=== PATIENT | male | born 1970 | race Caucasian/White ===

== ENCOUNTER 2020-03-27 17:40 | Emergency (ER) | payer OTHER, SELFPAY ==
[2020-03-27 17:44] VITALS: BP 135/76; PULSE 114; RESP 20; TEMP 36.8; O2SAT 100
--- NOTE | 2020-03-27 18:24 | ED.GENADULT ---
HPI - General Adult General Chief complaint: Skin/Abscess/Foreign Body Stated complaint: WHOLE LOT OF STUFF GOING ON WITH LEG Time Seen by Provider: 03/27/20 17:58 Source: patient Mode of arrival: ambulatory Limitations: no limitations History of Present Illness HPI narrative: Patient is a 49-year-old male who presents to emergency department for evaluation of wounds to the bilateral shins noting that 1 of the region just above the left ankle has been present long-term patient notes that he has since developed sores or other similar lesions to the left and right lower extremity. Patient notes he does not have a primary care doctor has been using topical antibiotics with minimal improvement patient notes mild aching pain patient denies any fever chills nausea vomiting. On arrival patient resting comfortably in the room in no distress Related Data Allergies Allergy/AdvReac Type Severity Reaction Status Date / Time acetaminophen Allergy Mild SHAKING Verified 03/27/20 18:14 dextromethorphan Allergy Mild SHAKING Verified 03/27/20 18:14 doxylamine Allergy Mild SHAKING Verified 03/27/20 18:14 pseudoephedrine Allergy Mild SHAKING Verified 03/27/20 18:14 Review of Systems Review of Systems: All systems reviewed & are unremarkable except as noted in HPI and below PMFSH Social History Social History (Updated 03/27/20 @ 18:49 by Rajiv Basilio PA-C) Smoking status: Current every day smoker Exam Narrative: Exam Narrative: GENERAL: Well-appearing, well-nourished, and in no acute distress. HEAD: Normocephalic, atraumatic. EYES: PERRLA and EOMI. ENT: Nares clear, no rhinorrhea or epistaxis. Mucous membranes moist. CHEST: Clear to auscultation. No respiratory distress. No wheezes rales or rhonchi HEART: Regular rate and rhythm. No murmur heard. Normal peripheral pulses. EXTREMITIES: Normal range of motion. No edema. SKIN: Warm, dry, patient with 3 erythematous plaques to the left martinez 1 to the inner thigh. One plaque that is erythematous to the right martinez NEURO: No focal deficits. Alert and oriented x3. Cranial nerves II through XII grossly intact. Neurovascularly intact. Capillary refill less than 2 seconds PSYCH: Normal mood and affect. Course Course Emergency Course: Patient in the room in no distress aware of case findings treatment plan and diagnosis agreeing to follow-up with provided primary care referral for discussion of possible dermatology referral for his skin lesions Vital Signs Vital signs: Vital Signs Temperature 98.3 F 03/27/20 17:44 Pulse Rate 114 H 03/27/20 17:44 Respiratory Rate 03/27/20 17:44 Blood Pressure 135/76 03/27/20 17:44 Pulse Oximetry 100 03/27/20 17:44 Temperature 98.3 F 03/27/20 17:44 Pulse Rate 114 H 03/27/20 17:44 Respiratory Rate 03/27/20 17:44 Blood Pressure 135/76 03/27/20 17:44 Pulse Oximetry 100 03/27/20 17:44 Medical Decision Making MDM Narrative Medical decision making narrative: Patient in the room with what appears to be likely plaque psoriasis will be referred to primary care for dermatology referral patient provided with reasons to return. Patient afebrile nontoxic-appearing and agreeing to follow-up as instructed Vital Signs Vital Signs: Vital Signs Temperature 98.3 F 03/27/20 17:44 Pulse Rate 114 H 03/27/20 17:44 Respiratory Rate 03/27/20 17:44 Blood Pressure 135/76 03/27/20 17:44 Pulse Oximetry 100 03/27/20 17:44 Temperature 98.3 F 03/27/20 17:44 Pulse Rate 114 H 03/27/20 17:44 Respiratory Rate 03/27/20 17:44 Blood Pressure 135/76 03/27/20 17:44 Pulse Oximetry 100 03/27/20 17:44 Discharge Plan Discharge Instructions: Acute Rash (ED), Psoriasis (ED) Additional Instructions: Follow up with your primary care provider within 1-2 days to set up for reevaluation. Go to ER for shortness of breath, difficulty breathing, chest pain, fever/chills, weakness, nauseau/vomitting, etc. or any oth
== END 2020-03-27 19:03 | disposition home or self-care (01) ==
PROVIDERS: Emergency Provider Emergency Medicine
DX: R21 Rash and other nonspecific skin eruption (principal); F17.200 Nicotine dependence, unspecified, uncomplicated
CPT/HCPCS: 99283

== ENCOUNTER 2022-12-27 08:03 | Emergency (ER) | payer OTHER, SELFPAY ==
[2022-12-27] VITALS (11 sets, daily range): BP systolic 129–148; BP diastolic 89–110; PULSE 86–107; RESP 19–28; TEMP 37.5; O2SAT 95–98
--- NOTE | ~2022-12-27 | XR_ITS ---
EXAMINATION: XR chest 2V DATE: 12/27/2022 08:28 INDICATION: Right lateral chest pain when coughing TECHNIQUE: PA and lateral views of the chest are obtained. COMPARISON: 02/23/2011 FINDINGS: There are minimal peripheral airspace opacities in the right midlung zone. Scarring is note d in the lung apices. No pleural effusion or pneumothorax. The cardiomediastinal silhouette is normal . There is mild thoracic spondylosis. IMPRESSION: 1. Minimal airspace opacities of the right midlung zone, likely pneumonia. Reviewed, dictated and finalized at location A. R APPLICATIONS DEVELOPMENT ENGINEER
--- NOTE | ~2022-12-27 | CT_ITS ---
EXAMINATION: CTA chest PE protocol DATE: 12/27/2022 09:47 INDICATION: Chest pain TECHNIQUE: Computed tomography angiography (CTA) of the chest was performed with 100 mL Omnipaque-350 intravenous contrast timed to evaluate the pulmonary arteries. Coronal maximum intensity projection 3D-reconstructions were created by the technologist. The dose-length product (DLP) was 193.38 mGy-cm. Automated exposure control and iterative reconstruction technique were employed. COMPARISON: None. FINDINGS: The pulmonary arteries are well-opacified. There are acute pulmonary emboli in proximal bra nches of the right middle and lower lobes. There are peripheral airspace opacities in the right middl e lobe. There is mild dependent atelectasis. No pleural effusion or pneumothorax. No pathologically e nlarged thoracic lymph nodes are identified. The heart size is normal. There is a possible mass in th e fundus of the stomach. IMPRESSION: 1. Acute pulmonary emboli in proximal branches of the right middle and lower lobes. 2. Peripheral airspace opacities of the right middle lobe are consistent with pulmonary infarct and/o r pneumonia. These findings were discussed with Dr. Lucia Luevano MD in the Emergency Department at 10 10 hours on 12/27/2022. 3. Possible mass in the fundus of the stomach. Follow-up with endoscopy is recommended. Reviewed, dictated and finalized at location A. E DETECTIVE IMPRESSION: 1. Acute pulmonary emboli in proximal branches of the right middle and lower lo bes. 2. Peripheral airspace opacities of the right middle lobe are consistent with p ulmonary infarct and/or pneumonia. These findings were discussed with Dr. Lucia Luevano MD in the Emergency Department at 1010 hours on 12/27/2022. 3. Possible mass in the fundus of the stomach. Follow-up with endoscopy is marianne mmended.
--- NOTE | 2022-12-27 08:09 | ECG_ITS ---
Measurements Intervals [place] Rate: 99 P: 71 [place]: 140 QRS: -19 QRSD: 92 T: 42 QT: 344 QTc: 442 Interpretive Statements SINUS RHYTHM LEFT ATRIAL ENLARGEMENT [-0.15mV P WAVE IN V1/V2] SEPTAL MYOCARDIAL INFARCTION , OF INDETERMINATE AGE [40+ ms Q WAVE IN V1/V2] NONSPECIFIC ST ABNORMALITY ABNORMAL ECG NO PREVIOUS ECG AVAILABLE FOR COMPARISON Electronically Signed On 12-27-2022 12:49:12 STRINGED INSTRUMENT ASSEMBLER by Santy Gonzales M.D.
[2022-12-27 08:25] LABS: Basophils Percent Auto 0.3 % (0.2-1.2); Eosinophils Percent Auto 0.1 % (0-4.4); Hematocrit 51.8 % (42.0-52.0); Hemoglobin 18.3 g/dL (14.0-18.0); Immature Granulocyte Absolute 0.07 K/mm3 (0.00-0.031); Immature Granulocyte Percent A 0.7 % (0-0.5); Lymphocytes Absolute Auto 1.46 K/mm3 (0.9-3.2); Lymphocytes Percent Auto 14.1 % (18.3-44.2); Mean Corpuscular HGB Conc 35.3 g/dl (32-36); Mean Corpuscular Hemoglobin 41.8 pg (26-34); Mean Corpuscular Volume 118.3 fl (80-100); Mean Platelet Volume 9.3 fl (7.4-10.4); Monocytes Absolute Auto 1.4 K/mm3 (0.1-0.6); Monocytes Percent Auto 13.8 % (2.6-8.5); Neutrophils Absolute Auto 7.3 K/mm3 (1.3-6.7); Platelet Count Result 144 k/mm3 (150-375); Red Blood Count 4.38 M/mm3 (4.6-6.20); Red Cell Distribution Width 14.6 % (11.5-14.5); White Blood Count 10.3 K/mm3 (4.5-10.0)
[2022-12-27 08:34] LABS: Alanine Aminotransferase 33 U/L (6-50); Albumin Level 4.1 g/dL (3.5-5.1); Alkaline Phosphatase 127 U/L (38-126); Anion Gap 6 mmol/L (8-16); Aspartate Amino Transferase 33 U/L (17-59); Bilirubin,Total 2.3 mg/dL (0.2-1.3); Blood Urea Nitrogen 6 mg/dL (9-20); Calcium 8.6 mg/dL (8.4-10.2); Carbon Dioxide 31 mmol/L (22-30); Chloride 96 mmol/L (98-107); Estimated CRCL calculation 97 ml/min; Estimated Glomerular Filt Rate > 60; Glucose 97 mg/dL (65-110); Lipase 31 U/L (23-300); Potassium 3.6 mmol/L (3.4-5.0); Sodium 133 mmol/L (137-145)
--- NOTE | 2022-12-27 08:34 | ED.CHESTPAIN ---
HPI - Chest Pain General Chief Complaint: Chest Pain Stated Complaint: cp/coughing up blood Time Seen by Provider: 12/27/22 08:09 History of Present Illness HPI narrative: Patient states about 3 days ago he started having severe sharp right-sided chest pain, and started having cough, the cough has been persistent to the point where this morning he had some bloody tinged sputum. Has never had symptoms like this before, only medical history is hypertension but he is not on any medications. Does smoke daily. No personal or family history of blood clots. Related Data Allergies Allergy/AdvReac Type Severity Reaction Status Date / Time acetaminophen Allergy Mild SHAKING Verified 03/27/20 18:14 dextromethorphan Allergy Mild SHAKING Verified 03/27/20 18:14 doxylamine Allergy Mild SHAKING Verified 03/27/20 18:14 pseudoephedrine Allergy Mild SHAKING Verified 03/27/20 18:14 Review of Systems Review of Systems: CONST: No fever. HEENT: No sore throat C/V: Right side chest pain RESP: cough and hemoptysis GI: No nausea or vomiting : No dysuria. M/S: No joint pain. SKIN: No rash. NEURO: [No headache or focal numbness or weakness] PSYCH: [No depression] [facility] Past Medical History Medical History (Updated 12/27/22 @ 10:25 by Lucia Luevano MD) Hypertension Social History Social History (Updated 03/27/20 @ 18:49 by Rajiv Basilio, PA-C) Smoking status: Current every day smoker Exam Narrative: EXAMINATION OF ORGAN SYSTEMS/BODY AREAS: Constitutional: Vital signs per nursing GENERAL:[No acute distress, non-toxic appearing; appears slightly anxious.] HEAD: Normal with no signs of head trauma. EYES: EOMI, conjunctiva normal ENT: Hearing grossly intact LUNGS: Slight tachypnea with clear lungs HEART: [Regular rate and rhythm] ABD: [Soft], [nontender to palpation] EXT: Normal range of motion SKIN: [No rashes or lesions.] NEURO: [Alert and oriented x 3. No gross focal sensory or strength deficits.] PSYCH: Anxious affect Course Vital Signs Vital signs: Vital Signs Temperature 99.5 F 12/27/22 08:11 Pulse Rate 100 12/27/22 08:11 Respiratory Rate 23 H 12/27/22 08:11 Blood Pressure 148/110 H 12/27/22 08:11 Pulse Oximetry 97 12/27/22 08:11 Oxygen Delivery Room Air 12/27/22 08:11 Temperature 99.5 F 12/27/22 08:11 Pulse Rate 88 12/27/22 11:10 Respiratory Rate 22 H 12/27/22 11:10 Blood Pressure 130/89 12/27/22 11:10 Pulse Oximetry 96 12/27/22 11:10 Oxygen Delivery Room Air 12/27/22 09:06 MDM - Chest Pain MDM Narrative Medical decision making narrative: 52-year-old male presenting with right-sided chest pain and blood-tinged sputum with coughing, vital signs normal here other than some mild tachypnea, he is otherwise well-appearing on exam speaking full complete sentences, my differential includes bronchitis, pneumonia, pulmonary embolism, doubt ACS without chest pain or risk factors. EKG - 12-Lead: Performed at 0813. Interpreted by me. [Sinus rhythm]. Rate 99. [Normal] axis. CO-interval 140. QRS duration [normal]. QTc [normal]. [No ST segment elevation or depression]. [T-wave normal]. Impression: No EKG evidence of acute ischemia or dysrhythmia. CXR showing opacity R chest. Labs are notable for elevated D-dimer and minimal leukocytosis, CT pulmonary embolism does show right-sided PE without RV changes. PESI score 61 indicating very low-risk and safe for discharge; I did offer the patient admission, however he would prefer to go home. He is given a dose of eliquis and I will also start antibiotics for possible pneumonia. CT also does show possible mass in stomach, I discussed this with patient as well as need to f/u with GI for further evaluation and he is given f/u to PCP and GI. STRICT return precautions discussed, especially if patient unable to picker feeder blood thinners; risk of or deterioration of condition if he does not take thinners as prescribed discussed. Patient ag
[2022-12-27 08:37] LABS: INR 1.1; Partial Thromboplastin Time 27.7 SECONDS (22.3-36.8); Prothrombin Time 13.9 Seconds (11.1-14.7)
[2022-12-27 08:45] LABS: Anisocytosis 1+ (NORMAL); Schistocytes None Seen (NORMAL); Troponin I 0.013 ng/mL (0.000-0.034)
[2022-12-27] MEDS: AZITHROMYCIN 250 MG TABLET 500 MG PO (10:50)
[2022-12-27] MEDS: APIXABAN 5 MG TABLET 10 MG PO (10:50)
== END 2022-12-27 11:00 | disposition home or self-care (01) ==
PROVIDERS: Emergency Provider Emergency Medicine
DX: I26.99 Other pulmonary embolism without acute cor pulmonale (principal); J18.9 Pneumonia, unspecified organism; I10 Essential (primary) hypertension; F17.200 Nicotine dependence, unspecified, uncomplicated
CPT/HCPCS: 36415; 71046; 71275; 80053; 83690; 84484; 85025; 85380; 85610; 85730; 93005; 99284; A9270; Q9967

== ENCOUNTER 2023-03-25 02:17 | Day surgery (SDC) | payer OTHER, SELFPAY ==
[2023-01-28 14:50] VITALS: BMI 19.2
--- NOTE | 2023-02-04 12:30 | SUR.PREOP ---
[address] Salgado anesthesiologist and reviewed patient's chart. Discussed with Dr Salgado regarding the patient has not found a primary despite his ER discharge instructions informing him to find a primary to follow up on his PE and that the PAT nurse spoke with him last week to check to see if he found a primary yet. The same PAT nurse called again this morning to see if he was able to find a primary. Patient to call her back at 1 today. Mother said he does not have an appointment yet. Patient also ran out of his Eliquis on 01/28. Discussion had with Dr Salgado on how to proceed. Dr. Salgado ask that we call patient and encourage him to get a primary to manage his PE and other health problem before they are willing to provide anesthesia for his procedures. I also spoke with Dr. Soto regarding the patient's situation. He also said he needs to see a primary provider. He is willing to order his Eliquis but needs to see a primary prior to having the procedure done. Message related to Padmini MARTIN RN as the patient will be calling her today to discuss.
--- NOTE | 2023-02-04 12:45 | PC.NURSE ---
Spoke with patient on 01/29/2023 regarding his Eliquis and current primary. Pt states he does not currently have a primary. I gave him the number to call at the hospital to see about getting into a primary. Talked with him about not running out of the Eliquis prior to follow up regarding his PE's and the seriousness of this condition. He assured me he would call. I told him I would call and follow up with him this week. I called today and his mom answered the phone, she said he has not gotten a primary as of today but she will have him call me after she picks him up from work.
--- NOTE | 2023-02-04 13:01 | PC.NURSE ---
Spoke with patient, numbers given to patient to call to obtain a primary doctor, in addition I discussed the seriousness of this issue and need to stay on Eliquis until he can be evaluated by primary and followed up with. I did discuss with this patient that anesthesia will not proceed with his procedure until he is seen by a primary and his health is stabilized, at that time we will reschedule him for this procedure. Dr. Soto placed an order for a refill for his Eliquis and pt instructed to pick this up and start back on it, he states he ran out a couple days ago, and that he will get back on it. He will call me once he is set up with a primary.
--- NOTE | 2023-02-05 16:37 | PC.NURSE ---
PT HAD LEFT MESSAGE THIS AM REGARDING HIS ELIQUIS, WHEN HE WENT TO PICK IT UP PHARMACY TOLD HIM THEY NEEDED A PRE-AUTH. I CALLED DR. WRIGHT OFFICE AND SPOKE WITH ELFEGO RODRIGUEZ MA, SHE WILL WORK ON GETTING THE PRE-AUTH THROUGH AND TALK TO DR. WRIGHT, I HAVE EXPLAINED THIS TO PATIENT AND WILL LET HIM KNOW AN UPDATE SOON I KNOW. ELFEGO Recinos DID CALL THIS AFTERNOON AND THE PRE-AUTH WAS APPROVED. I CALLED AN[facility] AND TOLD HIM TO CALL HIS PHARMACY AND HE SHOULD BE ABLE TO PICK IT UP THIS SALONI. HE IS TO CALL ME IF ANY PROBLEMS.
[2023-03-16 13:24] VITALS: BMI 19.2
--- NOTE | 2023-03-25 07:49 | WPDANESEPPF ---
Anes - Initial Pre Proc Eval Procedure: Operation Date: 03/25/23 11:00 Proposed Procedures p Esophagogastroduodenoscopy & Colonoscopy - Loki Barbour MD Date/Time: 03/25/23 07:49 Surgeon: Loki Barbour MD Pre Op Diagnosis: Abnormal Radiology Findings, Chest Pain Patient Data Age: 52 Gender: M Height: 1.88 m Weight: 68 kg Allergies Allergy/AdvReac Type Severity Reaction Status Date / Time acetaminophen Allergy Mild SHAKING Verified 03/25/23 09:51 dextromethorphan Allergy Mild SHAKING Verified 03/25/23 09:51 doxylamine Allergy Mild SHAKING Verified 03/25/23 09:51 pseudoephedrine Allergy Mild SHAKING Verified 03/25/23 09:51 Home Medications Medication Instructions Recorded Confirmed Type apixaban 5 mg tablet (Eliquis) 5 mg PO BID #180 tabs 02/24/23 03/25/23 Rx Patient hx anesthesia problems: none Family hx anesthesia problems: none Results Review: All pre-operative results and documents have been reviewed as part of the pre-operative evaluation. [facility] Past Medical History Medical History (Updated 03/25/23 @ 07:50 by Scotty Diaz MD) Abnormal CT scan, stomach Colon cancer screening ETOH abuse Hypertension Pulmonary embolism and infarction Stuttering Tobacco abuse Surgical History Surgical History History of left inguinal hernia repair (~2001) History of right inguinal hernia repair (~1996) Social History Social History Smoking packs per day: 1.5 Smoking cigarettes per day: 30.0 Years smoked: 35 Smoking pack-years: 52.50 Smoking status: Current every day smoker Tobacco type: cigarettes Alcohol intake: current Drinks per week: 25 Alcohol use details: BEER(15/WEEK) AND FIREBALL(8 SHOTS/WEEK) Substance use: former Substance use type: marijuana Lack of Transportation: No Lack of Food: Never True Current Housing: I Have Housing Concerned About Future Housing: No Difficulty Paying Gas/Electric Bills: No Difficulty Paying for Meds: No Currently Unemployed: No Education: Decline to Answer Difficulty w/ Childcare or Family Care: No Living arrangements: with family Occupation/Education: occupation Additional occupation/education comments: [employer] Gender identity (if verbalized by the patient): Male Spiritual care concerns: No Anes - Eval Final PreProcedure Day of Procedure 03/25/23 07:49 Patient weight: normal Heart: regular rate and rhythm Lungs: clear to auscultation and normal air movement Airway: Mallampati scale class II Neurological: alert and oriented Last oral intake: >/= 8 hours ASA classification: III Emergent: no Anesthetic plan: proceed Anesthesia type and monitoring: general GIVS Results Review: All pre-operative results and documents have been reviewed as part of the pre-operative evaluation. Informed Consent: The patient's anesthetic plan and its attendant risks and benefits were discussed with the patient/family/POA. Questions were solicited and answers provided to the satisfaction of the patient/family/POA.
[2023-03-25 09:48] VITALS: BP 169/94; PULSE 86; RESP 18; TEMP 36.6; O2SAT 100; BMI 18.6
[2023-03-25] MEDS: LACTATED RINGERS 1,000 ML 150 ML IV CONT (10:04)
--- NOTE | 2023-03-25 10:39 | PM.HPGS ---
History of Present Illness History of Present Illness Consent: Risks, benefits, and alternatives have been discussed and questions answered. Patient agrees to proceed with procedure. Chief complaint: Abnormal Radiology Findings, Chest Pain Narrative: Danilo Esposito is a 52 year old male here for egd and colonoscopy, had severe pain in rt chest and shortness of breath earlier this year, found to have new diagnosis of PE?and possible mass in the fundus of the stomach. Doing well now and using eliquis, denies abdominal pain but never had scopes. Review of Systems Constitutional: Constitutional: Denies headache(s) and Denies weakness Eyes: Eyes: Denies blurry vision ENT: Reports Normal hearing present, Denies headache(s) and Denies neck pain Cardiovascular: Cardiovascular: Denies chest pain and Denies dyspnea Respiratory: Respiratory: Denies dyspnea Gastrointestinal: Gastrointestinal: Reports no additional gastrointestinal complaints Genitourinary: Genitourinary: Denies dysuria Musculoskeletal: Musculoskeletal: Denies neck pain Integumentary/Breasts: Skin/Breast: Denies dry skin Neurologic: Reports Normal hearing present, Denies headache(s) and Denies weakness Psychiatric: Psychiatric: Denies anxiety Endocrine: Endocrine: Denies change in body appearance Hematologic/Lymphatic: Hematologic/Lymphatic: Denies easy bleeding Allergic/Immunologic: Allergic/Immunologic: Denies urticaria PMFSH Past Medical History Medical History (Updated 03/25/23 @ 10:40 by Loki Barbour MD) Abnormal CT scan, stomach Colon cancer screening ETOH abuse Hypertension Pulmonary embolism and infarction Stuttering Tobacco abuse Surgical History Surgical History History of left inguinal hernia repair (~2001) History of right inguinal hernia repair (~1996) Social History Social History Smoking packs per day: 1.5 Smoking cigarettes per day: 30.0 Years smoked: 35 Smoking pack-years: 52.50 Smoking status: Current every day smoker Tobacco type: cigarettes Alcohol intake: current Drinks per week: 25 Alcohol use details: BEER(15/WEEK) AND FIREBALL(8 SHOTS/WEEK) Substance use: former Substance use type: marijuana Lack of Transportation: No Lack of Food: Never True Current Housing: I Have Housing Concerned About Future Housing: No Difficulty Paying Gas/Electric Bills: No Difficulty Paying for Meds: No Currently Unemployed: No Education: Decline to Answer Difficulty w/ Childcare or Family Care: No Living arrangements: with family Occupation/Education: occupation Additional occupation/education comments: [employer] Gender identity (if verbalized by the patient): Male Spiritual care concerns: No Meds Home Medications and Allergies Home Medications Medication Instructions Recorded Confirmed Type apixaban 5 mg tablet (Eliquis) 5 mg PO BID #180 tabs 02/24/23 03/25/23 Rx Allergies Allergy/AdvReac Type Severity Reaction Status Date / Time acetaminophen Allergy Mild SHAKING Verified 03/25/23 09:51 dextromethorphan Allergy Mild SHAKING Verified 03/25/23 09:51 doxylamine Allergy Mild SHAKING Verified 03/25/23 09:51 pseudoephedrine Allergy Mild SHAKING Verified 03/25/23 09:51 Vital Signs Vital Signs - 24 hr 03/25/23 09:48 Temperature 97.9 F Pulse Rate 86 Respiratory Rate 18 Blood Pressure 169/94 H Pulse Oximetry 100 Oxygen Delivery Room Air Exam Const: General: comfortable and no acute distress HENMT: Face/Nose/Sinus: Normal nares present Eyes: General: appearance normal, both eyes and all related structures Neck: Neck: no JVD Resp: Auscultation: clear to auscultation bilaterally Cardio: Rate: regular rate Rhythm: regular rhythm GI: Inspection: non-distended GI Palp: Yes Soft to palpation Skin: General skin exam
--- NOTE | 2023-03-25 10:54 | SUR.OPER ---
EGD END TIME: 1047 COLON START TIME: 105
[2023-03-25 11:27] VITALS: BP 123/75; PULSE 83; RESP 22; O2SAT 100
[2023-03-25 11:37] VITALS: BP 123/75; PULSE 85; RESP 22; O2SAT 100
[2023-03-25 11:47] VITALS: BP 148/88; PULSE 76; RESP 18; O2SAT 99
== END 2023-03-25 11:58 | disposition home or self-care (01) ==
PROVIDERS: PCP Family Medicine; Visit Provider Internal Medicine Gastroenterology
PROC: 0DJ08ZZ Inspection of Upper Intestinal Tract, Via Natural or Artificial Opening Endoscopic (ICD-10-PCS; CPT 43235; principal; 2023-03-25 11:00)
DX: Z12.11 Encounter for screening for malignant neoplasm of colon (principal); D12.2 Benign neoplasm of ascending colon; D12.4 Benign neoplasm of descending colon; D12.5 Benign neoplasm of sigmoid colon; D12.0 Benign neoplasm of cecum; K64.8 Other hemorrhoids; K44.9 Diaphragmatic hernia without obstruction or gangrene; K29.70 Gastritis, unspecified, without bleeding; I26.99 Other pulmonary embolism without acute cor pulmonale; Z79.01 Long term (current) use of anticoagulants; F17.210 Nicotine dependence, cigarettes, uncomplicated; F10.10 Alcohol abuse, uncomplicated
CPT/HCPCS: 45385; 43239; 88305; J2704; J7120

== ENCOUNTER 2023-04-07 14:19 | Outpatient (CLI) | payer OTHER, SELFPAY ==
[2023-04-07 14:34] LABS: Basophils Absolute Auto 0.1 K/mm3 (0.0-0.1); Basophils Percent Auto 0.9 % (0.2-1.2); Eosinophils Percent Auto 0.7 % (0-4.4); Hematocrit 44.9 % (42.0-52.0); Hemoglobin 16.3 g/dL (14.0-18.0); Immature Granulocyte Absolute 0.02 K/mm3 (0.00-0.031); Immature Granulocyte Percent A 0.4 % (0-0.5); Lymphocytes Absolute Auto 0.89 K/mm3 (0.9-3.2); Lymphocytes Percent Auto 16.1 % (18.3-44.2); Mean Corpuscular HGB Conc 36.3 g/dl (32-36); Mean Corpuscular Hemoglobin 44.4 pg (26-34); Mean Corpuscular Volume 122.3 fl (80-100); Mean Platelet Volume 7.9 fl (7.4-10.4); Monocytes Absolute Auto 0.6 K/mm3 (0.1-0.6); Monocytes Percent Auto 10.1 % (2.6-8.5); Neutrophils Percent Auto 71.8 % (45.5-73.1); Platelet Count Result 117 k/mm3 (150-375); Red Blood Count 3.67 M/mm3 (4.6-6.20); Red Cell Distribution Width 15.3 % (11.5-14.5); White Blood Count 5.5 K/mm3 (4.5-10.0)
[2023-04-07 16:26] LABS: Alanine Aminotransferase 47 U/L (6-50); Alkaline Phosphatase 125 U/L (38-126); Anion Gap 8 mmol/L (8-16); Aspartate Amino Transferase 76 U/L (17-59); Bilirubin,Total 0.7 mg/dL (0.2-1.3); Blood Urea Nitrogen 4 mg/dL (9-20); Calcium 8.5 mg/dL (8.4-10.2); Carbon Dioxide 31 mmol/L (22-30); Chloride 99 mmol/L (98-107); Estimated Glomerular Filt Rate > 60; Glucose 77 mg/dL (65-110); Potassium 3.8 mmol/L (3.4-5.0); Sodium 138 mmol/L (137-145)
[2023-04-11 16:10] LABS: Erythropoietin (EPO) 53.1 mIU/mL (2.6-18.5)
== END 2023-04-07 14:20 | disposition home or self-care (01) ==
LOC: ANHLAB 14:20
PROVIDERS: PCP Family Medicine; Visit Provider Internal Medicine Hematology & Oncology
DX: D75.1 Secondary polycythemia (principal)
CPT/HCPCS: 36415; 80053; 82668; 85025

== ENCOUNTER 2023-06-11 14:36 | Outpatient (CLI) | payer OTHER, SELFPAY ==
--- NOTE | ~2023-06-11 | CT_ITS ---
EXAMINATION: CTA chest PE protocol DATE: 06/11/2023 14:58 INDICATION: Shortness of breath. Smoker. Prior pulmonary emboli (December 27, 2022 CTA chest) TECHNIQUE: Computed tomography angiography (CTA) of the chest and internal glands are normal. Include d upper abdominal structures are unremarkable. Was performed with 100 mL Omnipaque-350 intravenous co ntrast timed to evaluate the pulmonary arteries. Coronal maximum intensity projection 3D-reconstructi ons were created by the technologist. Automated exposure control and iterative reconstruction technGame Nation ue were employed. Exam dose: 239.80 mGy-cm total exam DLP. COMPARISON: December 27, 2022 CTA chest FINDINGS: There is diagnostic contrast enhancement of the pulmonary arteries and no evidence of pulmo nary embolism. No hilar or mediastinal mass lesion or lymphadenopathy. Normal heart size. No thoracic aortic aneurysm or dissection. Mild bilateral apical scarring. Mild discoid atelectasis or scarring in the posterolateral middle lob e and left lung base. The adrenal glands are normal. Included upper abdominal structures are unremarkable. IMPRESSION: No pulmonary emboli Reviewed, dictated and finalized at Location A. Reviewed, dictated and finalized at location L. IMPRESSION: No pulmonary emboli
== END 2023-06-11 14:37 | disposition home or self-care (01) ==
LOC: ANHIMG 14:38
PROVIDERS: PCP Family Medicine; Visit Provider Family Medicine
DX: I26.99 Other pulmonary embolism without acute cor pulmonale (principal)
CPT/HCPCS: 71275; Q9967

== ENCOUNTER 2023-07-10 11:42 | Outpatient (CLI) | payer OTHER, SELFPAY ==
[2023-07-10 18:27] LABS: Basophils Absolute Auto 0.1 K/mm3 (0.0-0.1); Basophils Percent Auto 0.6 % (0.2-1.2); Hematocrit 48.5 % (42.0-52.0); Hemoglobin 17.7 g/dL (14.0-18.0); Immature Granulocyte Absolute 0.05 K/mm3 (0.00-0.031); Immature Granulocyte Percent A 0.6 % (0-0.5); Immature Platelet Fraction Pct 2.6 % (0.9-11.2); Lymphocytes Absolute Auto 1.25 K/mm3 (0.9-3.2); Lymphocytes Percent Auto 15.2 % (18.3-44.2); Mean Corpuscular HGB Conc 36.5 g/dl (32-36); Mean Corpuscular Volume 120.6 fl (80-100); Mean Platelet Volume 9.1 fl (7.4-10.4); Monocytes Absolute Auto 0.9 K/mm3 (0.1-0.6); Monocytes Percent Auto 11.2 % (2.6-8.5); Neutrophils Absolute Auto 5.9 K/mm3 (1.3-6.7); Neutrophils Percent Auto 72.4 % (45.5-73.1); Platelet Count Result 98 k/mm3 (150-375); Red Blood Count 4.02 M/mm3 (4.6-6.20); Red Cell Distribution Width 13.4 % (11.5-14.5); White Blood Count 8.2 K/mm3 (4.5-10.0)
[2023-07-10 18:34] LABS: Alanine Aminotransferase 81 U/L (6-50); Albumin Level 3.8 g/dL (3.5-5.1); Alkaline Phosphatase 164 U/L (38-126); Anion Gap 5 mmol/L (8-16); Aspartate Amino Transferase 127 U/L (17-59); Bilirubin,Total 2.1 mg/dL (0.2-1.3); Blood Urea Nitrogen 4 mg/dL (9-20); Calcium 8.7 mg/dL (8.4-10.2); Carbon Dioxide 32 mmol/L (22-30); Chloride 95 mmol/L (98-107); Cholesterol 165 mg/dL (0-200); Estimated Glomerular Filt Rate > 60; Glucose 101 mg/dL (65-110); HDL Direct 39 mg/dL; Potassium 3.5 mmol/L (3.4-5.0); Sodium 132 mmol/L (137-145); Triglycerides 100 mg/dL (<150)
[2023-07-10 18:56] LABS: LDL Cholesterol Direct 109 mg/dL
[2023-07-10 18:58] LABS: Thyroid Stimulating Hormone Reflex 0.611 uIU/mL (0.465-4.68)
[2023-07-10 19:01] LABS: Prostate Specific Antigen 0.9 ng/mL (< OR = 4.0)
[2023-07-10 19:02] LABS: Macrocytosis 2+ (NORMAL); Platelet Estimate Decreased (Adequate)
[2023-07-10 19:03] LABS: Schistocytes None Seen (NORMAL)
== END 2023-07-10 11:43 | disposition home or self-care (01) ==
LOC: ANHGOSHLAB 11:44
PROVIDERS: PCP Family Medicine; Visit Provider Family Medicine
DX: I10 Essential (primary) hypertension (principal); F10.10 Alcohol abuse, uncomplicated; Z13.29 Encounter for screening for other suspected endocrine disorder; E55.9 Vitamin D deficiency, unspecified; Z12.5 Encounter for screening for malignant neoplasm of prostate; E78.5 Hyperlipidemia, unspecified; Z00.00 Encounter for general adult medical examination without abnormal findings; E53.8 Deficiency of other specified B group vitamins
CPT/HCPCS: 36415; 80053; 80061; 82306; 82607; 84153; 84443; 85025; 85055; G0103

== ENCOUNTER 2023-08-03 07:57 | Outpatient (CLI) | payer OTHER, SELFPAY ==
--- NOTE | ~2023-08-03 | US_ITS ---
Limited Abdominal Sonogram: Real-time sonographic imaging of the right upper quadrant was performed. Clinical History: Abnormal blood chemistry findings Findings: The liver appears echogenic, with no evidence of mass lesion or bile duct dilatation. Main portal vein demonstrates normal direction of flow. The gallbladder is well distended, and appears no rmal with no evidence of gallstone or wall thickening. The common bile duct measures 5 mm. The visua lized pancreas, aorta, and IVC are unremarkable. Impression: Diffuse fatty infiltration of liver. Reviewed, dictated and finalized at location M. Impression: Diffuse fatty infiltration of liver.
[2023-08-03 09:40] LABS: Alanine Aminotransferase 35 U/L (6-50); Albumin Level 3.6 g/dL (3.5-5.1); Alkaline Phosphatase 128 U/L (38-126); Aspartate Amino Transferase 50 U/L (17-59); Bilirubin,Total 0.8 mg/dL (0.2-1.3)
[2023-08-03 10:14] LABS: Hepatitis B Surface Antigen Negative (Negative)
[2023-08-03 10:21] LABS: HAV RESULT Negative (Negative); Hepatitis B Core IgM Result Negative (Negative)
[2023-08-03 10:32] LABS: Hepatitis C Virus Antibody Negative (Negative)
== END 2023-08-03 07:58 | disposition home or self-care (01) ==
PROVIDERS: PCP Family Medicine; Visit Provider Family Medicine
DX: R79.89 Other specified abnormal findings of blood chemistry (principal); K76.0 Fatty (change of) liver, not elsewhere classified
CPT/HCPCS: 36415; 76705; 80074; 80076

== ENCOUNTER 2023-08-14 12:27 | Outpatient (CLI) | payer OTHER, SELFPAY ==
[2023-08-14 17:58] LABS: Thyroid Stimulating Hormone 0.555 uIU/mL (0.465-4.680)
[2023-08-14 18:44] LABS: Folic Acid 2.4 ng/mL (2.76->20)
[2023-08-17 05:14] LABS: Homocysteine 116.6 umol/L (<11.4)
[2023-08-17 21:31] LABS: Antithrombin III Activity 92 % normal (80-135)
[2023-08-20 22:47] LABS: Lupus dRVVT Screen 36 sec (<=45); PTT-LA Screen 30 sec (<=40)
== END 2023-08-14 12:28 | disposition home or self-care (01) ==
LOC: ANHLAB 12:31
PROVIDERS: PCP Family Medicine; Visit Provider Internal Medicine Hematology & Oncology
DX: D75.89 Other specified diseases of blood and blood-forming organs (principal); D68.69 Other thrombophilia
CPT/HCPCS: 36415; 82607; 82746; 83090; 84443; 85300; 85303; 85306; 85613; 85730; 86146

== ENCOUNTER 2023-08-17 12:18 | Emergency (ER) | payer OTHER, SELFPAY ==
[2023-08-17] VITALS (10 sets, daily range): BP systolic 130–169; BP diastolic 76–93; PULSE 80–112; RESP 20–26; TEMP 37.4; O2SAT 93–100
--- NOTE | ~2023-08-17 | CT_ITS ---
EXAMINATION: CTA chest PE abdomen pel DATE: 08/17/2023 16:36 INDICATION: chest pain, history of PE TECHNIQUE: Computed tomography angiography (CTA) of the chest was performed with 200 mL Omnipaque-350 intravenous contrast timed to evaluate the pulmonary arteries, followed by portal venous phase imagi ng of the abdomen and pelvis. Coronal maximum intensity projection 3D-reconstructions were created by the technologist. The dose-length product (DLP) was 797.11 mGy-cm. Automated exposure control and it erative reconstruction technique were employed. COMPARISON: CTPA 06/11/2023. FINDINGS: CHEST: Lung parenchyma and airways: Peripheral right upper and right lower lobe scar. Left basilar scar/atel ectasis. Pleura: Unremarkable. Thoracic inlet, axillae and chest wall: Unremarkable. Thoracic aorta: Normal. Mediastinum: Normal. Heart and pericardium: The RV/LV ratio is 1.1. Coronary artery calcifications: Absent. Thoracic bones: No acute osseous finding. Pulmonary arteries: Study quality: Adequate. Nonocclusive segmental and subsegmental emboli in the ri ght lower lobe. Nonocclusive subsegmental emboli in the left lower lobe. ABDOMEN/PELVIS: Liver: Diffuse fatty infiltration. Biliary/Gallbladder: No bile duct dilation. Pancreas: No mass or duct dilation. Spleen: Linear areas of hypoenhancement in the spleen. Adrenals:No mass. Kidneys: Bilateral hypodensities, too small to characterize but likely represent cysts. Simple right lower pole cyst. No suspicious mass, obstructing stone, or hydronephrosis. GI tract: No small or large bowel dilation. Normal appendix. Mesentery/Peritoneum: No ascites, mass, or free air. Retroperitoneum: No mass. Atherosclerotic abdominal aortic and/or arterial calcifications. Pelvis: Urinary bladder wall thickening which may be secondary to cystitis or outlet obstruction. Soft Tissues: Soft tissues and body wall unremarkable. Bilateral inguinal hernia repair. Abdominopelvic bones: No acute osseous finding. IMPRESSION: Acute pulmonary emboli involving segmental and subsegmental branches in the right lower lobe and subs egmental branches in the left lower lobe. RV/LV ratio of 1.1 indicating right heart strain. New linear low densities in the spleen which have the imaging appearance of low-grade splenic lacerat ions. Correlate for left upper quadrant pain/tenderness and any recent history of overt or trivial tr auma. Splenic infarct or scar could also be considered in the differential. Reviewed, dictated and finalized at location K. IMPRESSION: Acute pulmonary emboli involving segmental and subsegmental branches in the rig ht lower lobe and subsegmental branches in the left lower lobe. RV/LV ratio of 1.1 indicating right heart strain. New linear low densities in the spleen which have the imaging appearance of low -grade splenic lacerations. Correlate for left upper quadrant pain/tenderness a nd any recent history of overt or trivial trauma. Splenic infarct or scar could also be considered in the differential.
--- NOTE | ~2023-08-17 | XR_ITS ---
EXAMINATION: XR chest 2V DATE: 08/17/2023 13:52 INDICATION: Chest pain. TECHNIQUE: Frontal and lateral views of the chest were obtained. COMPARISON: Chest 2 views 12/27/2022 FINDINGS: There is mild scarring at the lung apices. There is mild scarring in right midlung zone. No pleural effusion or pneumothorax. The heart size is normal. IMPRESSION: 1. Mild scarring in the lungs bilaterally. Reviewed, dictated and finalized at location A.
--- NOTE | 2023-08-17 12:19 | ECG_ITS ---
Measurements Intervals [place] Rate: 107 P: 75 [place]: 124 QRS: -8 QRSD: 90 T: -19 QT: 327 QTc: 438 Interpretive Statements SINUS TACHYCARDIA LEFT ATRIAL ENLARGEMENT CONSIDER INFERIOR INFARCT, AGE INDETERMINATE BORDERLINE ST-T WAVE ABNORMALITY- ANTEROLATERAL LEADS BASELINE ARTIFACT- I, II, III, AVR, AVL, AVF, V1-V2 ABNORMAL ECG COMPARED TO ECG 12/27/2022 08:13:59 SINUS TACHYCARDIA NOW PRESENT Electronically Signed On 08-17-2023 13:10:50 CDT by Walker Escalona D.O.
[2023-08-17] MEDS: ASPIRIN 81 MG CHEWABLE TABLET 324 MG PO (13:35)
--- NOTE | 2023-08-17 13:50 | PC.NURSE ---
Pt to Xray via stretcher at this time
[2023-08-17 14:22] LABS: Basophils Percent Auto 0.2 % (0.2-1.2); Hematocrit 50.6 % (42.0-52.0); Hemoglobin 18.4 g/dL (14.0-18.0); Immature Granulocyte Absolute 0.12 K/mm3 (0.00-0.031); Immature Granulocyte Percent A 0.9 % (0-0.5); Immature Platelet Fraction Pct 3.1 % (0.9-11.2); Lymphocytes Absolute Auto 0.75 K/mm3 (0.9-3.2); Lymphocytes Percent Auto 5.6 % (18.3-44.2); Mean Corpuscular HGB Conc 36.4 g/dl (32-36); Mean Corpuscular Hemoglobin 43.4 pg (26-34); Mean Corpuscular Volume 119.3 fl (80-100); Mean Platelet Volume 9.6 fl (7.4-10.4); Monocytes Absolute Auto 0.8 K/mm3 (0.1-0.6); Monocytes Percent Auto 5.8 % (2.6-8.5); Neutrophils Absolute Auto 11.7 K/mm3 (1.3-6.7); Neutrophils Percent Auto 87.5 % (45.5-73.1); Nucleated Red Blood Cells Perc 0.1 % (0.0-0.2); Platelet Count Result 92 k/mm3 (150-375); Red Blood Count 4.24 M/mm3 (4.6-6.20); Red Cell Distribution Width 15.8 % (11.5-14.5); White Blood Count 13.4 K/mm3 (4.5-10.0)
[2023-08-17 14:23] LABS: Alanine Aminotransferase 37 U/L (6-50); Alkaline Phosphatase 164 U/L (38-126); Anion Gap 9 mmol/L (8-16); Aspartate Amino Transferase 63 U/L (17-59); Bilirubin,Total 3.3 mg/dL (0.2-1.3); Blood Urea Nitrogen 3 mg/dL (9-20); Calcium 8.7 mg/dL (8.4-10.2); Carbon Dioxide 29 mmol/L (22-30); Chloride 93 mmol/L (98-107); Estimated CRCL calculation 100 ml/min; Estimated Glomerular Filt Rate > 60; Glucose 112 mg/dL (65-110); Lipase 64 U/L (23-300); Potassium 3.3 mmol/L (3.4-5.0); Sodium 131 mmol/L (137-145)
[2023-08-17 14:31] LABS: INR 1.1; Prothrombin Time 14.4 Seconds (11.1-14.7)
[2023-08-17 14:34] LABS: Macrocytosis 2+ (NORMAL); Platelet Estimate Decreased (Adequate)
[2023-08-17 14:35] LABS: Schistocytes None Seen (NORMAL)
--- NOTE | 2023-08-17 15:59 | ED.CHESTPAIN ---
HPI - Chest Pain General Chief Complaint: Chest Pain Stated Complaint: chest pain Time Seen by Provider: 08/17/23 15:10 Source: patient, RN notes reviewed and old records reviewed Mode of arrival: ambulatory Limitations: no limitations History of Present Illness HPI narrative: This is a 52 year old male with history of PE, alcohol abuse who presents for evaluation of chest pain. PAtient states he developed midsternal chest pain and right lower abdominal pain . He states he has pain with deep inspiration and his pain feels similar to previous diagnosis of PE. He states he was diagnosed with PE in December 2022 but he was taken off anticoagulation . HE is unsure of his cause of PE or why anticoagulation was stopped. He denies any bleeding issues. HE has appointment with ripshear operator Dr. Toussaint August 28. Related Data Allergies Allergy/AdvReac Type Severity Reaction Status Date / Time acetaminophen Allergy Mild SHAKING Verified 08/17/23 13:36 dextromethorphan Allergy Mild SHAKING Verified 08/17/23 13:36 doxylamine Allergy Mild SHAKING Verified 08/17/23 13:36 pseudoephedrine Allergy Mild SHAKING Verified 08/17/23 13:36 Review of Systems Constitutional: Constitutional: Denies weakness Cardiovascular: Cardiovascular: Reports chest pain, Denies syncope, Denies rapid heart rate, Denies irregular heart rhythm, Denies leg edema and Reports dyspnea Respiratory: Respiratory: Denies chest congestion, Denies hemoptysis, Denies excessive phlegm production and Reports dyspnea Gastrointestinal: Gastrointestinal: Reports abdominal pain, Denies hematochezia, Denies diarrhea and Denies vomiting Genitourinary: Genitourinary: Denies hematuria, Denies dysuria, Denies penile discharge and Denies testicular pain Musculoskeletal: Musculoskeletal: Denies joint swelling, Denies loss of height and Denies muscle weakness Neurologic: Denies syncope, Denies focal weakness and Denies weakness PMFSH Past Medical History Medical History Abnormal CT scan, stomach Colon cancer screening ETOH abuse Gastritis Hypertension Pulmonary embolism and infarction (~12/2022) Stuttering Tobacco abuse Vitamin D deficiency Surgical History Surgical History History of left inguinal hernia repair (~2001) History of right inguinal hernia repair (~1996) Social History Social History Smoking packs per day: 1.5 Smoking cigarettes per day: 30.0 Years smoked: 30 Smoking pack-years: 45.00 Smoking status: Current every day smoker Tobacco type: cigarettes Alcohol intake: current Drinks per week: 25 Alcohol use details: BEER(15/WEEK) AND FIREBALL(8 SHOTS/WEEK) Substance use: former Substance use type: marijuana Lack of Transportation: No Lack of Food: Never True Current Housing: I Have Housing Concerned About Future Housing: No Difficulty Paying Gas/Electric Bills: No Difficulty Paying for Meds: No Currently Unemployed: No Education: Decline to Answer Difficulty w/ Childcare or Family Care: No Living arrangements: with family Occupation/Education: occupation Additional occupation/education comments: [employer] Gender identity (if verbalized by the patient): Male Spiritual care concerns: No Exam Const: General: no acute distress and alert Nutritional Appearance: well nourished Orientation/consciousness: patient oriented x3 HENMT: Head: normal to inspection Face and sinus: normal facial exam and sinuses nontender Throat: posterior oropharynx normal and uvula midline Other: endentulous Eyes: EOM: EOMs intact bilaterally Resp: Effort & Inspection: normal respiratory effort Auscultation: clear to auscultation bilaterally Cardio: Rate: regular rate Rhythm: regular rhythm Heart sounds: no murmurs GI: GI Palp: Yes Soft to pal
[2023-08-17 16:06] LABS: Troponin I 0.017 ng/mL (0.000-0.034)
[2023-08-17] MEDS: POTASSIUM CHLORIDE 20 MEQ ER TABLET 40 MEQ PO (16:15)
[2023-08-17 17:02] LABS: Appearance Urine Clear (Clear); Bilirubin Urine Negative (Negative); Blood Urine Negative (Negative); Color Urine Yellow (Yellow); Glucose Urine UA Negative (Negative); Ketones Urine Negative (Negative); Leukocyte Esterase Ur Negative LEU/UL (Negative); Nitrate Urine Negative (Negative); Protein Urine Negative (Negative); pH Urine 7.5 (5.0-9.0)
[2023-08-17 17:27] LABS: Specific Grav Ur 1.056 (1.001-1.035)
[2023-08-17 17:28] LABS: Add Urine Microscopic? NO
[2023-08-17 19:24] LABS: Troponin I 0.022 ng/mL (0.000-0.034)
[2023-08-17] MEDS: HEPARIN SODIUM 5,000 UNITS/ML VIAL 5500 UNITS IV PUSH (20:37)
[2023-08-17] MEDS: HEPARIN SOD/D5W 100 UNITS/ML 25,000 UNITS/250 ML BAG 12 UNITS IV CONT (20:43)
== END 2023-08-17 22:26 | disposition short-term general hospital (02) ==
PROVIDERS: Emergency Medicine; Emergency Provider General Practice; PCP Family Medicine
DX: I26.94 Multiple subsegmental thrombotic pulmonary emboli without acute cor pulmonale (principal); R00.0 Tachycardia, unspecified; S36.030A Superficial (capsular) laceration of spleen, initial encounter; F17.210 Nicotine dependence, cigarettes, uncomplicated; I10 Essential (primary) hypertension; X58.XXXA Exposure to other specified factors, initial encounter
CPT/HCPCS: 36415; 71046; 71275; 74177; 80053; 81003; 83690; 84484; 85025; 85055; 85610; 85730; 93005; 96365; 96366; 99291; A9270; J1644; Q9967

== ENCOUNTER 2023-12-11 12:30 | Outpatient (CLI) | payer OTHER, SELFPAY ==
[2023-12-11 12:47] LABS: Basophils Absolute Auto 0.1 K/mm3 (0.0-0.1); Basophils Percent Auto 0.6 % (0.2-1.2); Eosinophils Percent Auto 0.4 % (0-4.4); Hematocrit 52.1 % (42.0-52.0); Hemoglobin 18.3 g/dL (14.0-18.0); Immature Granulocyte Absolute 0.05 K/mm3 (0.00-0.031); Immature Granulocyte Percent A 0.6 % (0-0.5); Immature Platelet Fraction Pct 3.4 % (0.9-11.2); Lymphocytes Absolute Auto 1.31 K/mm3 (0.9-3.2); Lymphocytes Percent Auto 14.5 % (18.3-44.2); Mean Corpuscular HGB Conc 35.1 g/dl (32-36); Mean Corpuscular Hemoglobin 39.1 pg (26-34); Mean Corpuscular Volume 111.3 fl (80-100); Mean Platelet Volume 9.1 fl (7.4-10.4); Monocytes Absolute Auto 0.8 K/mm3 (0.1-0.6); Monocytes Percent Auto 8.6 % (2.6-8.5); Neutrophils Absolute Auto 6.8 K/mm3 (1.3-6.7); Neutrophils Percent Auto 75.3 % (45.5-73.1); Platelet Count Result 91 k/mm3 (150-375); Red Blood Count 4.68 M/mm3 (4.6-6.20); Red Cell Distribution Width 17.9 % (11.5-14.5)
[2023-12-15 20:54] LABS: Homocysteine 43.8 umol/L (<11.4)
== END 2023-12-11 12:31 | disposition home or self-care (01) ==
LOC: ANHLAB 12:32
PROVIDERS: PCP Family Medicine; Visit Provider Internal Medicine Hematology & Oncology
DX: D68.69 Other thrombophilia (principal)
CPT/HCPCS: 36415; 82607; 82746; 83090; 85025; 85055

== ENCOUNTER 2024-01-25 08:46 | Outpatient (CLI) | payer OTHER, SELFPAY ==
[2024-01-25 19:36] LABS: Basophils Absolute Auto 0.1 K/mm3 (0.0-0.1); Basophils Percent Auto 1.3 % (0.2-1.2); Eosinophils Absolute Auto 0.1 K/mm3 (0-0.3); Eosinophils Percent Auto 1.1 % (0-4.4); Hematocrit 56.3 % (42.0-52.0); Hemoglobin 19.1 g/dL (14.0-18.0); Immature Granulocyte Absolute 0.03 K/mm3 (0.00-0.031); Immature Granulocyte Percent A 0.7 % (0-0.5); Lymphocytes Absolute Auto 1.55 K/mm3 (0.9-3.2); Lymphocytes Percent Auto 34.5 % (18.3-44.2); Mean Corpuscular HGB Conc 33.9 g/dl (32-36); Mean Corpuscular Hemoglobin 40.6 pg (26-34); Mean Corpuscular Volume 119.5 fl (80-100); Mean Platelet Volume 10.3 fl (7.4-10.4); Monocytes Absolute Auto 0.6 K/mm3 (0.1-0.6); Monocytes Percent Auto 13.8 % (2.6-8.5); Neutrophils Absolute Auto 2.2 K/mm3 (1.3-6.7); Neutrophils Percent Auto 48.6 % (45.5-73.1); Platelet Count Result 102 k/mm3 (150-375); Red Blood Count 4.71 M/mm3 (4.6-6.20); Red Cell Distribution Width 15.9 % (11.5-14.5); White Blood Count 4.5 K/mm3 (4.5-10.0)
[2024-01-25 20:17] LABS: Vitamin D 25 Hydroxy > 126.0 ng/mL
[2024-01-25 20:33] LABS: Platelet Estimate Decreased (Adequate)
[2024-01-25 20:34] LABS: Anisocytosis 1+ (NORMAL); Macrocytosis 1+ (NORMAL); Schistocytes None Seen (NORMAL)
[2024-01-25 20:58] LABS: Alanine Aminotransferase 52 U/L (6-50); Albumin Level 3.8 g/dL (3.5-5.1); Alkaline Phosphatase 116 U/L (38-126); Anion Gap 6 mmol/L (8-16); Aspartate Amino Transferase 92 U/L (17-59); Bilirubin,Total 0.8 mg/dL (0.2-1.3); Blood Urea Nitrogen 5 mg/dL (9-20); Calcium 9.4 mg/dL (8.4-10.2); Carbon Dioxide 34 mmol/L (22-30); Chloride 100 mmol/L (98-107); Estimated Glomerular Filt Rate > 60; Glucose 59 mg/dL (65-110); Potassium 4.2 mmol/L (3.4-5.0); Sodium 140 mmol/L (137-145)
== END 2024-01-25 08:47 | disposition home or self-care (01) ==
LOC: ANHGOSHLAB 08:47
PROVIDERS: PCP Family Medicine; Visit Provider Family Medicine
DX: R79.89 Other specified abnormal findings of blood chemistry (principal); D69.6 Thrombocytopenia, unspecified; E55.9 Vitamin D deficiency, unspecified
CPT/HCPCS: 36415; 80053; 82306; 85025

== ENCOUNTER 2024-03-30 11:29 | Outpatient (CLI) | payer OTHER, SELFPAY ==
[2024-03-30 11:48] LABS: Basophils Percent Auto 0.4 % (0.2-1.2); Eosinophils Absolute Auto 0.1 K/mm3 (0-0.3); Eosinophils Percent Auto 1.1 % (0-4.4); Hematocrit 51.4 % (42.0-52.0); Immature Granulocyte Absolute 0.05 K/mm3 (0.00-0.031); Immature Granulocyte Percent A 0.5 % (0-0.5); Immature Platelet Fraction Pct 5.5 % (0.9-11.2); Lymphocytes Absolute Auto 0.99 K/mm3 (0.9-3.2); Lymphocytes Percent Auto 10.5 % (18.3-44.2); Mean Corpuscular Hemoglobin 37.5 pg (26-34); Mean Corpuscular Volume 107.1 fl (80-100); Mean Platelet Volume 9.6 fl (7.4-10.4); Monocytes Absolute Auto 0.8 K/mm3 (0.1-0.6); Monocytes Percent Auto 8.8 % (2.6-8.5); Neutrophils Absolute Auto 7.4 K/mm3 (1.3-6.7); Neutrophils Percent Auto 78.7 % (45.5-73.1); Platelet Count Result 75 k/mm3 (150-375); Red Cell Distribution Width 13.6 % (11.5-14.5); White Blood Count 9.4 K/mm3 (4.5-10.0)
[2024-03-30 18:19] LABS: Folic Acid > 20.0 ng/mL (2.76->20)
== END 2024-03-30 11:30 | disposition home or self-care (01) ==
LOC: ANHLAB 11:30
PROVIDERS: PCP Family Medicine; Visit Provider Internal Medicine Hematology & Oncology
DX: D68.69 Other thrombophilia (principal)
CPT/HCPCS: 36415; 82607; 82746; 85025; 85055

== ENCOUNTER 2024-06-24 15:41 | Observation (INO) | payer OTHER, SELFPAY ==
[2024-06-24] VITALS (23 sets, daily range): BP systolic 125–146; BP diastolic 85–91; PULSE 76–115; RESP 16–29; TEMP 36.4–36.6; O2SAT 94–100
--- NOTE | ~2024-06-24 | XR_ITS ---
EXAMINATION: XR chest 2V DATE: 06/24/2024 16:05 INDICATION: Chest pain. TECHNIQUE: Frontal and lateral views of the chest were obtained. COMPARISON: Chest 2 views 08/17/2023, chest CT 08/17/2023 FINDINGS: There is stable mild scarring at the lung apices. No pleural effusion or pneumothorax. The heart size is normal. IMPRESSION: 1. No acute cardiopulmonary disease. Reviewed, dictated and finalized at location A.
--- NOTE | ~2024-06-24 | CT_ITS ---
EXAMINATION: CTA chest PE abdomen pel DATE: 06/24/2024 22:43 INDICATION: Chest pain, shortness of breath and abdominal pain TECHNIQUE: Computed tomography (CT) pulmonary angiogram of the chest was performed with 100 mL Omnipa que-350 intravenous contrast. Additional 3D reconstructions utilizing coronal maximum intensity proje ction (MIP) were performed. CT of the abdomen and pelvis was performed with intravenous contrast util izing the same contrast bolus following a short delay. Automated exposure control and iterative recon struction technique were employed. The dose-length product was 498.48 mGy-cm. COMPARISON: 08/17/2023 FINDINGS: Chest: No pulmonary embolism. Minimal atelectasis in bilateral lower lobes. Heart size is normal. Small amou nt of atherosclerotic coronary artery calcific lesion. No pericardial effusion. Thoracic aorta is nor mal in caliber with no dissection. No pathologically enlarged thoracic lymphadenopathy. Mild upper th oracic levocurvature with mild spondylosis. Abdomen/pelvis: Diffuse hepatic steatosis with focal sparing along the gallbladder fossa. Gallbladder, spleen, bilate ral adrenal glands are normal. Bilateral subcentimeter renal cysts. There are couple tiny dystrophic calcifications at the body the pancreas likely sequela of chronic pancreatitis. There is some subtle peripancreatic inflammatory stranding suspicious for acute interstitial pancreatitis. No discrete per ipancreatic fluid collections. Bowels including the appendix are normal. Bladder is normal. Postopera tive changes of bilateral inguinal hernia repairs. No free intraperitoneal gas or fluid. No pathologi iraj enlarged abdominal or pelvic lymphadenopathy. Mild lumbar spondylosis. IMPRESSION: 1. No pulmonary embolism or other acute cardiopulmonary disease. 2. Suggestion of acute on chronic pancreatitis. Correlate with lipase levels. 3. Diffuse hepatic steatosis. Reviewed, dictated and finalized at location A.
--- NOTE | 2024-06-24 15:49 | ECG_ITS ---
Test Date: 2024-06-24 15:52:50 Measurements Intervals [place] Rate: 112 P: 77 DE: 132 QRS: -5 QRSD: 80 T: -11 QT: 321 QTc: 438 Interpretive Statements SINUS TACHYCARDIA RIGHT ATRIAL ENLARGEMENT [-0.1mV P WAVE IN V1/V2] MODERATE ST DEPRESSION [0.05+ mV ST DEPRESSION], CONSIDER ISCHEMIA ABNORMAL ECG No previous ECG available for comparison Electronically Signed On 06-24-2024 18:22:03 CDT by David Matos M.D.
[2024-06-24 16:06] LABS: Basophils Percent Auto 0.5 % (0.2-1.2); Eosinophils Absolute Auto 0.1 K/mm3 (0-0.3); Eosinophils Percent Auto 0.8 % (0-4.4); Hematocrit 46.9 % (42.0-52.0); Hemoglobin 16.5 g/dL (14.0-18.0); Immature Granulocyte Absolute 0.03 K/mm3 (0.00-0.031); Immature Granulocyte Percent A 0.3 % (0-0.5); Immature Platelet Fraction Pct 4.9 % (0.9-11.2); Lymphocytes Percent Auto 13.7 % (18.3-44.2); Mean Corpuscular HGB Conc 35.2 g/dl (32-36); Mean Corpuscular Hemoglobin 36.7 pg (26-34); Mean Corpuscular Volume 104.2 fl (80-100); Monocytes Absolute Auto 0.9 K/mm3 (0.1-0.6); Monocytes Percent Auto 10.3 % (2.6-8.5); Neutrophils Absolute Auto 6.5 K/mm3 (1.3-6.7); Neutrophils Percent Auto 74.4 % (45.5-73.1); Platelet Count Result 108 k/mm3 (150-375); Red Cell Distribution Width 13.8 % (11.5-14.5); White Blood Count 8.8 K/mm3 (4.5-10.0)
[2024-06-24 16:17] LABS: Alanine Aminotransferase 40 U/L (6-50); Albumin Level 3.8 g/dL (3.5-5.1); Alkaline Phosphatase 166 U/L (38-126); Anion Gap 7 mmol/L (4-12); Aspartate Amino Transferase 67 U/L (17-59); Bilirubin,Total 2.2 mg/dL (0.2-1.3); Blood Urea Nitrogen 3 mg/dL (9-20); Calcium 8.3 mg/dL (8.4-10.2); Carbon Dioxide 34 mmol/L (22-30); Chloride 91 mmol/L (98-107); Estimated CRCL calculation 119 ml/min; Estimated Glomerular Filt Rate > 60; Glucose 100 mg/dL (65-110); Lipase 695 U/L (23-300); Potassium 3.4 mmol/L (3.4-5.0); Sodium 132 mmol/L (137-145)
[2024-06-24 16:20] LABS: INR 1.2; Prothrombin Time 15.6 Seconds (11.1-14.7)
[2024-06-24 16:21] LABS: Partial Thromboplastin Time 28.9 Seconds (22.3-36.8)
[2024-06-24 16:29] LABS: Troponin I < 0.012 ng/mL (0.000-0.034)
--- NOTE | 2024-06-24 20:19 | ECG_ITS ---
Test Date: 2024-06-24 20:24:06 Measurements Intervals [place] Rate: 88 P: 66 AK: 138 QRS: -14 QRSD: 84 T: 3 QT: 377 QTc: 456 Interpretive Statements SINUS RHYTHM RIGHT ATRIAL ENLARGEMENT ST SEGMENT DEPRESSION, CONSIDER ISCHEMIA ABNORMAL ECG Compared to ECG 06/24/2024 15:52:50 HEART RATE REDUCED AND ST SEGMENT DEPRESSION SOMEWHAT IMPROVED Electronically Signed On 06-25-2024 08:16:47 CDT by David Matos M.D.
--- NOTE | 2024-06-24 20:59 | ED.CHESTPAIN ---
HPI - Chest Pain General Chief Complaint: Chest Pain Stated Complaint: Chest Pain x1 Week Time Seen by Provider: 06/24/24 20:23 Related Data Home Medications Medication Instructions Recorded Confirmed folic acid 1 mg tablet 1 mg PO DAILY 08/26/23 01/25/24 thiamine mononitrate (vit B1) 100 100 mg PO DAILY 08/26/23 01/25/24 mg tablet (Vitamin B-1 (mononitrate)) apixaban 5 mg tablet (Eliquis) 5 mg PO BID 01/25/24 01/25/24 vitamin B complex (B 1 tablet PO DAILY 01/25/24 01/25/24 Complex-Vitamin B12 tablet) Allergies Allergy/AdvReac Type Severity Reaction Status Date / Time acetaminophen Allergy Mild SHAKING Verified 06/24/24 15:43 dextromethorphan Allergy Mild SHAKING Verified 06/24/24 15:43 doxylamine Allergy Mild SHAKING Verified 06/24/24 15:43 pseudoephedrine Allergy Mild SHAKING Verified 06/24/24 15:43 PMFSH Past Medical History Medical History ETOH abuse Fatty liver Gastritis Hypertension Pulmonary embolism and infarction (~12/2022) Recurrent pulmonary embolism 01/15 and 08/15 Stuttering Tobacco abuse Venous thromboembolism 01/15 and 08/15 - PE 08/15 - right lower extremity DVT Vitamin B12 deficiency Vitamin D deficiency Surgical History Surgical History History of left inguinal hernia repair (~2001) History of right inguinal hernia repair (~1996) Social History Social History Smoking packs per day: 1.5 Smoking cigarettes per day: 30.0 Years smoked: 30 Smoking pack-years: 45.00 Smoking status: Current every day smoker Tobacco type: cigarettes Alcohol intake: current Drinks per week: 25 Alcohol use details: BEER(15/WEEK) AND FIREBALL(8 SHOTS/WEEK) Substance use: former Substance use type: marijuana Lack of Transportation: No Lack of Food: Never True Current Housing: I Have Housing Concerned About Future Housing: No Difficulty Paying Gas/Electric Bills: No Difficulty Paying for Meds: No Currently Unemployed: No Education: Decline to Answer Difficulty w/ Childcare or Family Care: No Living arrangements: with family Occupation/Education: occupation Additional occupation/education comments: [employer] Gender identity (if verbalized by the patient): Male Spiritual care concerns: No Course Vital Signs Vital signs: Vital Signs Temperature 97.5 F L 06/24/24 15:54 Pulse Rate 115 H 06/24/24 15:54 Respiratory Rate 16 06/24/24 15:54 Blood Pressure 137/86 06/24/24 15:54 Pulse Oximetry 100 06/24/24 15:54 Temperature 97.5 F L 06/24/24 15:54 Pulse Rate 89 06/24/24 20:57 Respiratory Rate 18 06/24/24 20:57 Blood Pressure 144/91 H 06/24/24 20:57 Pulse Oximetry 98 06/24/24 20:57 MDM - Chest Pain Lab Data 06/24/24 16:00 06/24/24 16:00 Labs: Lab Results 06/24/24 06/24/24 Range/Units 16:00 20:29 WBC 8.8 (4.5-10.0) K/mm3 RBC 4.50 L (4.6-6.20) M/mm3 Hgb 16.5 (14.0-18.0) g/dL Hct 46.9 (42.0-52.0) % MCV 104.2 H (80-100) fl MCH 36.7 H (26-34) pg MCHC 35.2 (32-36) g/dl RDW 13.8 (11.5-14.5) % Plt Count 108 L (150-375) k/mm3 MPV 10.0 (7.4-10.4) fl Immature Gran % (Auto) 0.3 (0-0.5) % Neut % (Auto) 74.4 H (45.5-73.1) % Lymph % (Auto) 13.7 L (18.3-44.2) % [place] % (Auto) 10.3 H (2.6-8.5) % Eos % (Auto) 0.8 (0-4.4) % Baso % (Auto) 0.5 (0.2-1.2) % Lymph # (Auto) 1.20 (0.9-3.2) K/mm3 [place] # (Auto) 0.9 H (0.1-0.6) K/mm3 Eos # (Auto) 0.1 (0-0.3) K/mm3 Baso # (Auto) 0.0 (0.0-0.1) K/mm3 Abs Immat Gran (auto) 0.03 (0.00-0.031) K/mm3 Absolute Neuts (auto) 6.5 (1.3-6.7) K/mm3 Absolute Nucleated RBC 0.000 (0.0-0.012) K/mm3 Nucleated RBC % 0.0 (0.0-0.2) % % Immature Plt Fraction 4.9 (0.9-11.2) % PT 15.6 H (11.1-1
[2024-06-24 21:02] LABS: Troponin I < 0.012 ng/mL (0.000-0.034)
--- NOTE | 2024-06-24 21:50 | ED.CHESTPAIN ---
HPI - Chest Pain General Chief Complaint: Chest Pain Stated Complaint: Chest Pain x1 Week Time Seen by Provider: 06/24/24 20:23 Source: patient and old records reviewed Mode of arrival: ambulatory Limitations: no limitations History of Present Illness HPI narrative: Patient is a 53-year-old male who presents the ED with multiple complaints. Patient reports having pain throughout his left lower extremity, chest pain, abdominal pain. Reports symptoms have been going on for the last several days, but have become worse. Reports venous stasis changes throughout left lower extremity, states he constantly has a baseline 4/10 pain, but states pain has increased to 8-9/10. He also reports pain diffusely across his chest over the last few days. Denies aggravating or alleviating factors to this. Reports pain throughout his upper abdomen. Again denies aggravating or relieving factors this. Denies nausea, vomiting, diarrhea, constipation, shortness of breath, fevers, cough or cold symptoms. He does report history of DVT/PE and is on Eliquis 5 mg b.i.d.. Is compliant with this. Patient is a smoker. He also reports to daily EtOH use, 6+ beers per day with several shots of fireball. Related Data Home Medications Medication Instructions Recorded Confirmed folic acid 1 mg tablet 1 mg PO DAILY 08/26/23 01/25/24 thiamine mononitrate (vit B1) 100 100 mg PO DAILY 08/26/23 01/25/24 mg tablet (Vitamin B-1 (mononitrate)) apixaban 5 mg tablet (Eliquis) 5 mg PO BID 01/25/24 01/25/24 vitamin B complex (B 1 tablet PO DAILY 01/25/24 01/25/24 Complex-Vitamin B12 tablet) Allergies Allergy/AdvReac Type Severity Reaction Status Date / Time acetaminophen Allergy Mild SHAKING Verified 06/24/24 15:43 dextromethorphan Allergy Mild SHAKING Verified 06/24/24 15:43 doxylamine Allergy Mild SHAKING Verified 06/24/24 15:43 pseudoephedrine Allergy Mild SHAKING Verified 06/24/24 15:43 Review of Systems Review of Systems: CONSTITUTIONAL: Denies fever, chills, or sweats. CARDIOVASCULAR: See HPI. RESPIRATORY: Denies cough or dyspnea. GASTROINTESTINAL: See HPI MUSCULOSKELETAL: See HPI. NEUROLOGIC: Denies headache, dizziness, numbness, or weakness. All systems reviewed & are unremarkable except as noted in HPI and below PMFSH Past Medical History Medical History ETOH abuse Fatty liver Gastritis Hypertension Pulmonary embolism and infarction (~12/2022) Recurrent pulmonary embolism 01/15 and 08/15 Stuttering Tobacco abuse Venous thromboembolism 01/15 and 08/15 - PE 08/15 - right lower extremity DVT Vitamin B12 deficiency Vitamin D deficiency Surgical History Surgical History History of left inguinal hernia repair (~2001) History of right inguinal hernia repair (~1996) Social History Social History Smoking packs per day: 1.5 Smoking cigarettes per day: 30.0 Years smoked: 30 Smoking pack-years: 45.00 Smoking status: Current every day smoker Tobacco type: cigarettes Alcohol intake: current Drinks per week: 25 Alcohol use details: BEER(15/WEEK) AND FIREBALL(8 SHOTS/WEEK) Substance use: former Substance use type: marijuana Lack of Transportation: No Lack of Food: Never True Current Housing: I Have Housing Concerned About Future Housing: No Difficulty Paying Gas/Electric Bills: No Difficulty Paying for Meds: No Currently Unemployed: No Education: Decline to Answer Difficulty w/ Childcare or Family Care: No Living arrangements: with family Occupation/Education: occupation Additional occupation/education comments: [employer] Gender identity (if verbalized by the patient): Male Spiritual care concerns: No Exam Narrative: GENERAL: Appears older than stated age, thin, non-toxic, in no acute d
[2024-06-24] MEDS: ONDANSETRON INJ 4 MG/2 ML VIAL IV PUSH (22:03)
[2024-06-24] MEDS: MORPHINE SULFATE (*CRX) 4 MG/ML INJ IV PUSH (22:05)
[2024-06-24 22:27] LABS: Ethanol < 10 mg/dL (<10)
[2024-06-24 22:36] LABS: NT Pro B Type Natriuretic Pept 176 pg/mL (19.9-100)
[2024-06-24 22:57] LABS: Troponin I < 0.012 ng/mL (0.000-0.034)
[2024-06-25] VITALS (21 sets, daily range): BP systolic 117–144; BP diastolic 75–109; PULSE 68–83; RESP 12–24; TEMP 36.3–36.7; O2SAT 91–98; BMI 19.5
[2024-06-25] MEDS: SODIUM CHLORIDE 0.9% IV 1,000 ML 999 ML IV CONT ×2 (00:04)
[2024-06-25] MEDS: PANTOPRAZOLE SODIUM IV 40 MG VIAL IV PUSH ×2 (01:57→08:12)
[2024-06-25] MEDS: THIAMINE HCL 200 MG/2 ML VIAL 100 MG IV PUSH ×2 (01:58→08:11)
[2024-06-25] MEDS: SODIUM CHLORIDE 0.9% IV 1,000 ML 150 ML IV CONT ×3 (02:15→14:03)
[2024-06-25] MEDS: NICOTINE (*PBKC) 14 MG PATCH 1 PATCH TRANSDERM (02:15)
--- NOTE | 2024-06-25 02:21 | PC.NURSE ---
pt arrived to ed with a gauze and kerlex wrapped around left knee. When asked how long it has been on, he said I think i fell last week, and landed on glass. This rn soaked gauze with ns multiple times to get original gauze off the wound. Pt has open wound to left knee. RN able to get some of the dried scab off, but not all of it.
--- NOTE | 2024-06-25 04:05 | ADMGEN ---
This patient, Danilo Esposito, was admitted to Medical Room 346-01. Patient/family oriented to hospital policies and general routines including ID bracelet, bed and alarms, visiting hours, pain management, procedures, bathroom and other care routines, personal items, smoking policy, room service/diet, and visiting hours. Information on how to activate the Rapid Response Team has been discussed. Patient/Family are encouraged to report perceived risks to care and to ask questions if they do not understand what they are told or what they should do.
[2024-06-25 07:01] LABS: Glucose Point of Care 72 mg/dl (65-105)
[2024-06-25 07:47] LABS: Bacteria Urine None Seen /hpf; Non Pathogenic Casts 0-2; RBC Urine 0-2 /hpf (0-2); Squamous Epithelial Cell Urine None Seen /hpf (Few); WBC Urine 0-5 /hpf (0-3)
[2024-06-25 07:51] LABS: Add Urine Microscopic? YES; Appearance Urine Clear (Clear); Bilirubin Urine 1+ (Negative); Blood Urine Negative (Negative); Glucose Urine UA Negative (Negative); Ketones Urine Trace mg/dL (Negative); Leukocyte Esterase Ur Trace LEU/UL (Negative); Nitrate Urine Negative (Negative); Protein Urine Trace mg/dL (Negative); Specific Grav Ur 1.029 (1.001-1.035)
[2024-06-25 07:52] LABS: Color Urine Dark Yellow (Yellow)
[2024-06-25 08:15] LABS: Amphetamine Screen Urine Negative (Negative); Barbiturate Screen Urine Negative (Negative); Benzodiazepines Screen Urine Negative (Negative); Cannabinoid Screen Urine Negative (Negative); Cocaine Screen Urine Negative (Negative); Methadone Screen Urine Negative (Negative); Opiate Screen Urine Positive (Negative); Phencyclidine Screen Urine Negative (Negative)
[2024-06-25 09:29] LABS: Lipase 680 U/L (23-300)
[2024-06-25 13:10] LABS: Lipase 201 U/L (23-300)
[2024-06-25 13:29] LABS: Glucose Point of Care 63 mg/dl (65-105)
[2024-06-25] MEDS: HYDROcodone/acetaminophen (*CRX) 5-325 MG TABLET 1 TAB PO (17:36)
--- NOTE | 2024-06-25 18:01 | PM.IMHP ---
H&P: HPI History of Present Illness Date/Time: 06/25/24 11:05 Chief Complaint: Abdominal pain Narrative: Patient presented to the ER with multiple complaints, including generalized abdominal painm chest discomfort, LLE pain. Patient admits to drinking 6 pack of beer daily with some shots of fireball. Pt evaluated in his room and states his abdominal discomfort has improved and wants to have something to eat. Pt denies any aggravating factors to his symptoms, and gets relief by pain meds. Pain is intermittent and describes it as sharp and diffuse. Pt denies fevers, chills, nausea or vomiting, diarrhea or constipation, chest discomfort or SOB. Review of Systems Review of Systems: All systems reviewed & are unremarkable except as noted in HPI and below PMFSH Past Medical History Medical History ETOH abuse Fatty liver Gastritis Hypertension Pulmonary embolism and infarction (~12/2022) Recurrent pulmonary embolism 01/15 and 08/15 Stuttering Tobacco abuse Venous thromboembolism 01/15 and 08/15 - PE 08/15 - right lower extremity DVT Vitamin B12 deficiency Vitamin D deficiency Surgical History Surgical History History of left inguinal hernia repair (~2001) History of right inguinal hernia repair (~1996) Social History Social History Smoking packs per day: 1 Smoking cigarettes per day: 20.0 Years smoked: 35 Smoking pack-years: 35.00 Smoking status: Current every day smoker Tobacco type: cigarettes Alcohol intake: current Drinks per week: 30 Alcohol use details: BEER(15/WEEK) AND FIREBALL(8 SHOTS/WEEK) Substance use: current Substance use type: marijuana Do You Feel Safe in your Home?: Yes Lack of Transportation: No Lack of Food: Never True Current Housing: I Have Housing Concerned About Future Housing: No Difficulty Paying Gas/Electric Bills: No Difficulty Paying for Meds: No Currently Unemployed: No Education: High School Diploma/GED Difficulty w/ Childcare or Family Care: No Living arrangements: with family Occupation/Education: occupation Additional occupation/education comments: [employer] Gender identity (if verbalized by the patient): Male Spiritual care concerns: No Meds Home Medications and Allergies Home Medications Medication Instructions Recorded Confirmed Type folic acid 1 mg tablet 1 mg PO DAILY 08/26/23 06/25/24 History thiamine mononitrate (vit B1) 100 100 mg PO DAILY 08/26/23 06/25/24 History mg tablet (Vitamin B-1 (mononitrate)) nicotine See Rx Instructions transdermal 09/04/23 06/25/24 Rx 21mg/24hr-14mg/24hr-7mg/24hr daily .COMPLEX #56 patches transderm patches,sequentl apixaban 5 mg tablet (Eliquis) 5 mg PO BID 01/25/24 06/25/24 History omeprazole 20 mg capsule,delayed 20 mg PO DAILY #90 caps 01/25/24 06/25/24 Rx release vitamin B complex (B 1 tablet PO DAILY 01/25/24 06/25/24 History Complex-Vitamin B12 tablet) cholecalciferol (vitamin D3) 1,250 1,250 mcg PO WEEKLY 06/25/24 06/25/24 History mcg (50,000 unit) tablet (Dialyvite Vitamin D3 Max) nicotine 21 mg/24 hr daily 1 patch transdermal DAILY PRN 06/25/24 06/25/24 History transdermal patch smoking Allergies Allergy/AdvReac Type Severity Reaction Status Date / Time acetaminophen Allergy Mild SHAKING Verified 06/24/24 15:43 dextromethorphan Allergy Mild SHAKING Verified 06/24/24 15:43 doxylamine Allergy Mild SHAKING Verified 06/24/24 15:43 pseudoephedrine Allergy Mild SHAKING Verified 06/24/24 15:43 Vital Signs Vital Signs - 24 hr 06/24/24 20:57 06/24/24 23:12 06/24/24 22:00 Temperature 97.9 F Pulse Rate 89 83 Pulse Rate [Monitor] Respiratory Rate 18 19 Blood Pressure 144/91 H 137/86 Pulse Oximetry 98 97 96 Oxygen Delivery Room Air 06/25/24 03:42 06/24/24
[2024-06-25 19:13] LABS: Glucose Point of Care 93 mg/dl (65-105)
[2024-06-25] MEDS: NICOTINE (*PBKC) 21 MG PATCH 1 PATCH TRANSDERM (20:47)
[2024-06-25] MEDS: chlordiazePOXIDE (*CRX) 25 MG CAPSULE PO (20:47)
[2024-06-25] MEDS: APIXABAN 5 MG TABLET PO (20:48)
[2024-06-25] MEDS: SODIUM CHLORIDE 0.9% IV 1,000 ML 100 ML IV CONT (20:49)
[2024-06-26] VITALS: PULSE 68
[2024-06-26] LABS: Glucose Point of Care 86 mg/dl (65-105)
[2024-06-26 03:29] VITALS: PULSE 72
[2024-06-26] MEDS: chlordiazePOXIDE (*CRX) 25 MG CAPSULE PO ×2 (05:18→14:23)
[2024-06-26 05:19] VITALS: BP 144/77; PULSE 72; RESP 20; TEMP 36.6; O2SAT 97
[2024-06-26 05:24] LABS: Glucose Point of Care 81 mg/dl (65-105)
[2024-06-26 05:37] LABS: Lipase 109 U/L (23-300)
[2024-06-26] MEDS: SODIUM CHLORIDE 0.9% IV 1,000 ML 100 ML IV CONT (07:11)
[2024-06-26] MEDS: APIXABAN 5 MG TABLET PO (08:14)
[2024-06-26] MEDS: THERAPEUTIC MULTIVITAMINS/MINERALS TAB (*BKC) 1 TABLET PO (08:15)
[2024-06-26] MEDS: THIAMINE HCL 100 MG TABLET PO (08:15)
[2024-06-26] MEDS: VITAMIN B COMPLEX CAPSULE 1 CAP PO (08:15)
[2024-06-26] MEDS: EUCERIN CREAM 120 GM JAR 1 APPLIC TOPICAL (08:15)
[2024-06-26] MEDS: PANTOPRAZOLE 40 MG TABLET PO (08:15)
[2024-06-26] MEDS: FOLIC ACID 1 MG TABLET PO (08:15)
[2024-06-26 11:48] LABS: Glucose Point of Care 69 mg/dl (65-105)
[2024-06-26] MEDS: HYDROcodone/acetaminophen (*CRX) 5-325 MG TABLET 1 TAB PO (12:46)
[2024-06-26 14:00] VITALS: BP 120/55; PULSE 92; RESP 18; TEMP 36.7; O2SAT 90
--- NOTE | 2024-06-26 15:40 | PM.DS ---
DS: Admitting Diagnosis Discharge Date 06/26/2024 Admitting Diagnosis Abdominal Pain DS: Discharge Diagnosis Discharge Diagnosis (1) Acute pancreatitis: Qualifiers: Acute pancreatitis complication: no infection or necrosis Pancreatitis type: alcohol induced Qualified Code(s): K85.20 - Alcohol induced acute pancreatitis without necrosis or infection Code(s): K85.90 - Acute pancreatitis without necrosis or infection, unspecified Status: Acute Assessment and Plan: - CT abd/pelvis suggestive of acute on chronic pancreatitis and diffuse hepatic staeatosis.. - Lipase 695 on admission but normalized prior to discharge.. - Pt admitted to drinking 6 packs of beer/day with shots of whiskey. - Hydrated with IVF. - Continue pain meds PRN. (2) Atypical chest pain: Code(s): R07.89 - Other chest pain Status: Acute Assessment and Plan: - Likely related to pancreatitis. - Troponin negative. - CTA chest negative for PE or other acute cardiopulmonary disease. - Symptoms resolved. (3) ETOH abuse: Code(s): F10.10 - Alcohol abuse, uncomplicated Status: Chronic Assessment and Plan: - Encouraged with cessation but states focusing on tobacco cessation currently. - Continue Folic acid, thiamine, MVI. - Given Librium inpatient. - Declines referral for cessation assistance, states aware of them. (4) Recurrent pulmonary embolism: Code(s): I26.99 - Other pulmonary embolism without acute cor pulmonale Status: Chronic Assessment and Plan: - Reports compliance with Apixaban despite alcohol abuse. - Continue Apixaban. - Counseled on dangers of anticoagulation and alcohol use with increased bleeding risks. (5) Elevated LFTs: Code(s): R79.89 - Other specified abnormal findings of blood chemistry Status: Chronic Assessment and Plan: - Likely alcoholic cirrhosis with hepatic steatosis. - Continue outpatient f/u with PCP. (6) Thrombocytopenia: Code(s): D69.6 - Thrombocytopenia, unspecified Status: Chronic Assessment and Plan: - Likely alcohol related. - Monitor for bleeding signs. (7) Gastritis: Qualifiers: Chronicity: chronic Gastritis bleeding: without bleeding Gastritis type: unspecified gastritis Qualified Code(s): K29.50 - Unspecified chronic gastritis without bleeding Code(s): K29.70 - Gastritis, unspecified, without bleeding Status: Chronic Assessment and Plan: - Likely related to alcohol abuse. - No bleeding signs noted. - Continue omeprazole. (8) Tobacco abuse: Code(s): Z72.0 - Tobacco use Status: Chronic Assessment and Plan: - Encouraged with cessation. - Declined nicotine patch. Plan # Code Status: FULL-CODE. DS: Summary Hospital Course Reason for hospitalization: Acute on Chronic Pancreatitis Hospital Course: Patient presented to the ER with multiple complaints, including generalized abdominal pain chest discomfort, LLE pain. Patient admitted to drinking 6-7 beers daily with shots of whiskey. Pt had a negative work-up for chest discomfort, including negative troponins, negative CTA chest for PE or other cardiopulmonary disease, negative CXR. His CTA chest was suggestive of acute on chronic pancreatitis, with patient also noted with an elevated Lipase level of 695. He was placed NPO initially and hydrated with IV fluids. Pt was started on a clear liquid diet after his repeat Lipase level was normalized and pt reported much improvement in symptoms. He's been able to tolerate a soft diet without GI discomfort prior to his discharge. Patient reports he feels good now and wants to go home. Status at Discharge Functional status at discharge: independent ambulation Overall status at discharge: patient is back to baseline Time Spent with Patient Time attestation: Total time spent providing and/or coordinating discharge services: Time spent:
== END 2024-06-26 16:30 | disposition home or self-care (01) ==
LOC: ANHED 20:23 → ANH3MED 06-25 03:33
PROVIDERS: Emergency Medicine; Admitting Provider Internal Medicine; Emergency Provider Physician Assistant; PCP Family Medicine; Visit Provider Nurse Practitioner Adult Health
DX: K85.20 Alcohol induced acute pancreatitis without necrosis or infection (principal); D69.6 Thrombocytopenia, unspecified; K29.70 Gastritis, unspecified, without bleeding; R79.89 Other specified abnormal findings of blood chemistry; R07.89 Other chest pain; I87.8 Other specified disorders of veins; F10.20 Alcohol dependence, uncomplicated; I10 Essential (primary) hypertension; E55.9 Vitamin D deficiency, unspecified; E53.8 Deficiency of other specified B group vitamins; G62.9 Polyneuropathy, unspecified; K76.0 Fatty (change of) liver, not elsewhere classified; Z86.718 Personal history of other venous thrombosis and embolism; Z86.711 Personal history of pulmonary embolism; Z79.01 Long term (current) use of anticoagulants; F17.210 Nicotine dependence, cigarettes, uncomplicated
CPT/HCPCS: 36415; 71046; 71275; 74177; 80053; 80307; 81001; 82948; 83690; 83880; 84484; 85025; 85055; 85610; 85730; 93005; 96361; 96374; 96375; 99285; A9270; G0378; G0379; J2270; J2405; J2470; J3411; J7030; Q9967

== ENCOUNTER 2024-08-05 10:57 | Outpatient (CLI) | payer OTHER, SELFPAY ==
[2024-08-05 15:37] LABS: Basophils Absolute Auto 0.1 K/mm3 (0.0-0.1); Eosinophils Absolute Auto 0.1 K/mm3 (0-0.3); Hematocrit 41.5 % (42.0-52.0); Hemoglobin 13.5 g/dL (14.0-18.0); Immature Granulocyte Absolute 0.03 K/mm3 (0.00-0.031); Immature Granulocyte Percent A 0.4 % (0-0.5); Lymphocytes Absolute Auto 2.29 K/mm3 (0.9-3.2); Lymphocytes Percent Auto 29.8 % (18.3-44.2); Mean Corpuscular HGB Conc 32.5 g/dl (32-36); Mean Corpuscular Hemoglobin 33.7 pg (26-34); Mean Corpuscular Volume 103.5 fl (80-100); Monocytes Absolute Auto 0.8 K/mm3 (0.1-0.6); Monocytes Percent Auto 10.1 % (2.6-8.5); Neutrophils Absolute Auto 4.4 K/mm3 (1.3-6.7); Neutrophils Percent Auto 57.7 % (45.5-73.1); Platelet Count Result 196 k/mm3 (150-375); Red Blood Count 4.01 M/mm3 (4.6-6.20); Red Cell Distribution Width 13.2 % (11.5-14.5); White Blood Count 7.7 K/mm3 (4.5-10.0)
[2024-08-05 16:13] LABS: Alanine Aminotransferase 25 U/L (6-50); Albumin Level 3.3 g/dL (3.5-5.1); Alkaline Phosphatase 114 U/L (38-126); Anion Gap 6 mmol/L (4-12); Aspartate Amino Transferase 53 U/L (17-59); Bilirubin,Total 0.7 mg/dL (0.2-1.3); Blood Urea Nitrogen 6 mg/dL (9-20); Calcium 8.6 mg/dL (8.4-10.2); Carbon Dioxide 30 mmol/L (22-30); Chloride 98 mmol/L (98-107); Cholesterol 113 mg/dL (0-200); Estimated Glomerular Filt Rate > 60; Glucose 88 mg/dL (65-110); HDL Direct 42 mg/dL; Potassium 4.5 mmol/L (3.4-5.0); Sodium 134 mmol/L (137-145); Triglycerides 66 mg/dL (<150)
[2024-08-05 16:21] LABS: Vitamin D 25 Hydroxy 58.3 ng/mL
[2024-08-05 16:25] LABS: LDL Cholesterol Direct 60 mg/dL
[2024-08-05 16:33] LABS: Hemoglobin A1C 5.3 % (<5.7)
[2024-08-05 16:45] LABS: Prostate Specific Antigen 0.4 ng/mL (< OR = 4.0)
== END 2024-08-05 10:58 | disposition home or self-care (01) ==
LOC: ANHGOSHLAB 10:59
PROVIDERS: PCP Family Medicine; Visit Provider Family Medicine
DX: E53.8 Deficiency of other specified B group vitamins (principal); E11.9 Type 2 diabetes mellitus without complications; Z00.00 Encounter for general adult medical examination without abnormal findings; E78.5 Hyperlipidemia, unspecified; F10.10 Alcohol abuse, uncomplicated; K85.90 Acute pancreatitis without necrosis or infection, unspecified; R79.89 Other specified abnormal findings of blood chemistry; E55.9 Vitamin D deficiency, unspecified; Z12.5 Encounter for screening for malignant neoplasm of prostate; I10 Essential (primary) hypertension
CPT/HCPCS: 36415; 80053; 80061; 82306; 82607; 83036; 84153; 84443; 85025; 97110; 97112; G0103

== ENCOUNTER 2024-08-23 13:15 | Outpatient (RCR) | payer OTHER, SELFPAY ==
--- NOTE | 2024-07-28 11:37 | OPREHPOC ---
Outpatient Therapy Plan of Care This is a Multidisciplinary Plan of Care that may contain components documented by all disciplines (PT, OT, and ST.) PT Problem 1 PT Problem #1 Knowledge Deficit PT Goal 1 Goal / Goal Update Pt to be IND with issued HEP. Target Visit 8 PT Problem 2 PT Problem #2 Impaired Balance PT Goal 1 Goal / Goal Update Pt to improve mira single leg stance to 10s . Target Visit 8 PT Goal 2 Goal / Goal Update Pt to improve Tinetti score from 24/28 to 28/28. Target Visit 8 PT Problem 3 PT Problem #3 Impaired Strength PT Goal 1 Goal / Goal Update Pt to demonstrate 5xSTS in less than 20s without UE support. Target Visit 8 PT Goal 2 Goal / Goal Update Pt to be able to lift and carry 30lb box from ground level. Target Visit 8 PT Problem 4 PT Problem #4 Pain PT Goal 1 Goal / Goal Update Pt to tolerate 1 hour of activity prior to needing to sit d/t pain Target Visit 8
--- NOTE | 2024-07-28 11:37 | PTOPEVAL1 ---
Assessment and note entered by Quinton Jeffery, PT, DPT Evaluation Information Assessment Status Evaluation Diagnosis gait unsteadiness, prolonged hospitalization ICD-10 Condition Codes (PT) M25.571,M25.572,Difficulty Walking R26.2,R26.9, Weakness R53.1 Subjective Information Pt states he has peripheral neuropathy, he states he has uncontrollable pain d/t this. He states recently he was in the hospital for DVT and PE. He states currently he is unsteady on his feet and often wall walks. He states he needs to get his medication changed to something that works. He states he can stand no more than 30 mins, with pain, then the pain becomes unbearable. He states at rest has foot pain is 9/10 and with standing is a 10/10. He states his legs are really weak d/t a recent prolonged hospital stay and increased inactivity d/t the neuropathy. He states all of his daily tasks are limited d/t foot pain. Pt works at [employer], he works to unload the truck. Asked pt of specific therapy goals, he states to get on pain pills that actually work, he states he does not plan on going back to work until he gets better meds. Reported Pain Level Pain Score 9: Self Report Assessment PT Clinical Summary Danilo was seen today for his initial evaluation with a diagnosis of gait unsteadiness and weakness following a prolonged hospital stay. Today he demonstrates decreased hip and ankle strength, decreased endurance, decreased functional strength , and decreased balance. He is required to lift and carry large boxes for work and he would be unable to do that at this time. Skilled therapy services are indicated to address the deficits noted above, to improve pain, and to return to PLOF. Pain reports could limit therapy progress. Plan of Care Interventions Electrical Stimulation,Gait Training,Hot Pack/Cold Pack,Manual Therapy,Neuro Re-education,Patient/ Caregiver Educati,Therapeutic Activities, Therapeutic Exercise PT Services Indicated Yes Treatment Frequency and 2x/wk for 8 visits Duration These treatments will address the objective and functional deficits as defined above. The patient will be advanced safely and appropriately in order for the patient to progress towards his/her prior level of function. Additional exercises will be introduced and as well as a comprehensive home exercise program upon discharge, if needed, ?to ensure carryover of functional gains achieved in the clinic. This treatment plan has been reviewed and agreement upon by the patient.
--- NOTE | 2024-08-23 14:15 | PTOPPROG ---
Assessment and note entered by Quinton Jeffery, PT, DPT Evaluation Information Assessment Status Progress Diagnosis gait unsteadiness, prolonged hospitalization ICD-10 Condition Codes (PT) M25.571,M25.572,Difficulty Walking R26.2,R26.9, Weakness R53.1 Subjective Information Pt states his steady pain has decreased and is now controlled with his pain medication. He states he is getting random sharp pains, he states these happen every couple of days, the pain is intense still a 10/10, but goes away immediately. He states he still getting numbness and tingling in the bottom of his feet. He returns to work tomorrow. Assessment PT Clinical Summary Danilo was seen today for progress report following 8 visits to treat his balance and strength deficits. Today he demonstrates slight improvements in LE strength but continues to have significant balance limitations from expected. Continuation of skilled therapy services are indicated to continue progress towards goals and to improve functional mobility. Pt would like to see how returning to work goes and will then decide if he needs additional therapy. Plan of Care Interventions Electrical Stimulation,Gait Training,Hot Pack/Cold Pack,Manual Therapy,Neuro Re-education,Patient/ Caregiver Educati,Therapeutic Activities, Therapeutic Exercise PT Services Indicated Yes Treatment Frequency and 1x/wk for 4 visits Duration These treatments will address the objective and functional deficits as defined above. The patient will be advanced safely and appropriately in order for the patient to progress towards his/her prior level of function. Additional exercises will be introduced and as well as a comprehensive home exercise program upon discharge, if needed, ?to ensure carryover of functional gains achieved in the clinic. This treatment plan has been reviewed and agreement upon by the patient.
--- NOTE | 2024-09-29 09:14 | PTOPDC ---
Assessment and note entered by Quinton Jeffery, PT, DPT Evaluation Information Assessment Status Discharge - Pt Not Present Diagnosis gait unsteadiness, prolonged hospitalization ICD-10 Condition Codes (PT) M25.571,M25.572,Difficulty Walking R26.2,R26.9, Weakness R53.1 Subjective Information Called and spoke with pt, he started work on and is doing well. States he does not need any additional therapy. Assessment PT Clinical Summary Pt completed 8 visits of skilled therapy. Will be d/c'ed at this time.
== END 2024-09-29 10:58 | disposition home or self-care (01) ==
LOC: ANHGOSHPT 13:15
PROVIDERS: PCP Family Medicine; Visit Provider Family Medicine
DX: R29.898 Other symptoms and signs involving the musculoskeletal system (principal); R26.81 Unsteadiness on feet; G62.9 Polyneuropathy, unspecified
CPT/HCPCS: 97110; 97112; 97161; 97530

== ENCOUNTER 2024-12-12 10:53 | Outpatient (CLI) | payer OTHER, SELFPAY ==
[2024-12-12 11:12] LABS: Hematocrit 55.2 % (42.0-52.0); Hemoglobin 18.2 g/dL (14.0-18.0); Immature Platelet Fraction Pct 4.2 % (0.9-11.2); Mean Corpuscular Hemoglobin 34.5 pg (26-34); Mean Corpuscular Volume 104.7 fl (80-100); Platelet Count Result 127 k/mm3 (150-375); Red Blood Count 5.27 M/mm3 (4.6-6.20); White Blood Count 7.1 K/mm3 (4.5-10.0)
== END 2024-12-12 10:54 | disposition home or self-care (01) ==
LOC: ANHLAB 10:54
PROVIDERS: PCP Family Medicine; Visit Provider Internal Medicine Hematology & Oncology
DX: D75.1 Secondary polycythemia (principal)
CPT/HCPCS: 36415; 85027; 85055

== ENCOUNTER 2024-12-28 02:03 | Day surgery (SDC) | payer OTHER, SELFPAY ==
[2024-12-13 14:36] VITALS: BMI 19.3
--- NOTE | 2024-12-16 13:35 | PC.NURSE ---
Spoke with _patient_ regarding medication _ELIQUIS_. _PATIENT_verbalizes understanding that the last dose is to be taken on _12/25/2024_ and the Endoscopist will instruct them when to restart after the procedure.
--- OUTSIDE RECORDS SUMMARY | 2024-12-28 02:06 | XMS_ITS | CONTINUITY OF CARE DOCUMENT ---
Author Name chito dale Address Unknown Organization [facility] Address [address] [place] [address] Phone [phone] Care Team Providers Care Reverse Unit Operator Fisherman Name Role Phone Nadir Parish MD Unavailable [phone] JESUS RANGEL MD Unavailable [phone] JESUS RANGEL MD Unavailable [phone] INSURANCE PROVIDERS Payer name Policy type / Coverage type Khari red constitution party ID [employer] MEDICA[employer] Medicaid [id number]
--- OUTSIDE RECORDS SUMMARY | 2024-12-28 02:06 | XMS_ITS | Continuity of Care Document ---
Author Organization [facility] Address [address] [facility] ([place], [place]) [address] [place] [address] Phone Care Team Providers Care Finance Manager Name Role Phone Santos Handy MD Unavailable Unavailable Advance Directives Directive Yes / No Effective Date File Name No Information Encounters Encounter Description Practice Location Reason(s) For Visit Diagnoses Date Provider Providers Copied on Encounter [facility], [address] [place], [id number], [place] tel:[phone] [facility] No Information Ole Graham. [address] [place], [place], [id number], [place]. tel:[phone] Family History Family Member Type Diagnosis Age At Onset No Information Payers Payer name Insurance type Covered democrat ID Authoriza tion(s) No Information Social History Type Description Quantity Date Captured Comments Sex Male Smoking Status No Information Chief Complaint And Reason For Visit No Information Plan Of Treatment Date Type Action Status No Information History Of Present Illness Encounter Date Complaint History Of Prese nt Illness No Information Instructions Date Instruction Additional Infor mation No Information Assessments Type Assessment Date No Information
--- OUTSIDE RECORDS SUMMARY | 2024-12-28 02:06 | XMS_ITS | Clinical Summary ---
Author Organization [facility] Sacha soriano Carmen Address [address] [place] [address] Care Team Providers Care Mold Maintenance Technician Name Role Phone Eliane Alvarado MD Primary Care Provider Allergies Active Allergy Reactions Criticality Noted Date Comments Nyquil Liquicaps Other (See Comments) Low 3 Shakes, and could not sleep Medications omeprazole (PriLOSEC) 20 mg Capsule, Delayed Release(E.C.) Take 20 mg by mouth daily. 3 Active Eliquis 2.5 mg tablet TAKE 1 TABLET(2.5 MG) BY MOUTH TWICE DAILY 60 Tablet 3 4 Active folic acid (FOLVITE) 1 mg tablet TAKE 1 TABLET(1 MG) BY MOUTH DAILY 90 Tablet 2 5 Active folic acid (FOLVITE) 1 mg tablet TAKE 1 TABLET(1 MG) BY MOUTH DAILY 90 Tablet 1 4 12/23/19 25 Discontinued Active Problems Problem Noted Date Diagnosed Date Hyponatremia 08/18/2023 Hypokalemia 08/18/2023 Elevated LFTs 08/18/2023 Acute pulmonary embolism 08/18/2023 History of pulmonary embolism 08/18/2023 Leukocytosis (leucocytosis) 08/18/[address] of the abdomen 08/18/2023 Elevated troponin 08/18/2023 Alcohol use disorder, mild, abuse 08/18/2023 Thrombocytopenia 08/18/2023 GERD (gastroesophageal reflux disease) 3 Tobacco abuse 08/18/2023 RLQ abdominal pain 08/18/2023 Venous stasis dermatitis 11/27/2020 Encounters Date Type Department Care Team Description 12/23/2024 Refill [facility] - [place] [address] [place] [address] Williams Toussaint MD 12/21/2024 External Device Data STL ABSTRACTION Provider, Abstract 12/16/2024 11:30 AM MANUFACTURING PLANT MANAGER Office Visit [facility] - [place] [address] [place] [address] Williams Toussaint MD Secondary hypercoagulable state (Primary Dx); Macrocytosis 12/16/2024 Abstract [facility] - [place] [address] [place] [address] Williams Toussaint MD 12/13/2024 Orders Only [facility] - [place] [address] [place] [address] Williams Toussaint MD 12/06/2024 External Device Data STL ABSTRACTION Provider, Abstract 11/01/2024 External Device Data STL ABSTRACTION Provider, Abstract from Last 3 Months Family History Medical History Relation Name Comments Skin Cancer Father Relation Name Status Comments Daughter Alive Father Alive Mother Alive Sister Alive Social History Tobacco Use Types Packs/Day Years Used Date Smoking Tobacco: Every Day Cigarettes 1 37.1 Started: 1987 Tobacco Cessation:Ready to Q uit: Not Asked; Counseling Given: Not Answered Alcohol Use Standard Drinks/Week Comments Yes 15 (1 standard drink = 0.6 oz pu re alcohol) most days Feeling Safe Answer Date Recorded Are you in a relationship wi th someone who hurts you emotionally and/or physically? No 08/18/2023 Food Insecurity Answer Date Recorded Social/Environmental Concerns No concerns Transportation Needs Answer Date Record ed Social/Environmental Concerns No concerns Housing Stability Answer Date Recorded Social/Environmental Concerns No concerns Utility Needs Answer Date Recorded Social/Environmental Concerns No concerns Sex and Gender Information Value Date Recorded Sex Assigned at Not on file Legal Sex Male 7:40 AM CDT Gender Identity Not on file Sexual Orientation Not on file Last Filed Vital Signs Vital Sign Reading Time Taken Comments Blood Pressure 132/86 12/16/2024 11:19 AM MANUFACTURING PLANT MANAGER Pulse 72 12/16/2024 11:19 AM MANUFACTURING PLANT MANAGER Temperature 36.7 ??C (98 ??F) 12/16/2024 11: 19 AM MANUFACTURING PLANT MANAGER Respiratory Rate 15 12/16/2024 11:1 9 AM MANUFACTURING PLANT MANAGER Oxygen Saturation 98% 12/16/2024 11: 19 AM MANUFACTURING PLANT MANAGER Inhaled Oxygen Concentration - - Weight 76.2 kg (168 lb) 12/16/2024 11:1 9 AM MANUFACTURING PLANT MANAGER Patient stated this is the correct weight due to heavy clothes Height 188 cm (6' 2 ) 08/17/2023 11:46 PM CDT Body Mass Index 21.57 08/17/2023 11:46 PM CDT Plan of Treatment Upcoming Encounters Date Type Department Care Team (Late st Contact Info) Description 04/24/2025 1:15 PM CDT Office Visit [facility] On[facility] [address] [facility] [address] [place] [address] Williams Toussaint MD [address] [facility] [address] [place] [address] Health Maintenance Due Date Last Done Comments DTAP/TDAP/TD VACCINES (1 - Tdap) 1990 HEPATITIS B VACCINES (1 of 3 - 19+ 3-dose series) 10/23 Preventative Visit-Managed Medicaid 1990 COLORECTAL SCREENING 2016 Colorectal Cancer Screening 2016 FIT-DNA Q 3 years 2016 FIT/FOBT Q 1 year 2016 Flex Sig/CT Colonography Q 5 years 2016 Lung Cancer Screening 2021 ZOSTER VACCINE (1 of 2) 2021 INFLUENZA VACCINE (#1) 2024 Abdominal Aortic Aneurysm (AAA) Screening Completed 08/18/2023 Procedures Procedure Name Priority Date/Time Associated Diagnosis Comments CBC WITH DIFFERENTIAL Routine 12/12/2024 1:34 PM MANUFACTURING PLANT MANAGER US ABDOMEN COMPLETE Routine 08/18/2023 1 1:43 AM CDT from Last 3 Months or Most Recently Relevant to Health Maintenance Results * CBC WITH DIFFERENTIAL (12/12/2024 1:34 PM MANUFACTURING PLANT MANAGER) Blood us Williams Toussaint MD HEMATOLOGY ORDERABLES Final Res ult * US ABDOMEN COMPLETE (08/18/2023 11:43 AM CDT) Anatomical Region Laterality Modality Abdomen Ultrasound 08/18/2023 11:4 5 AM CDT Impressions 08/18/2023 1:45 PM CDT IMPRESSION: No splenic lesions evident on abdominal ultrasound. Hepatic steatosis. Narrative 08/18/2023 1:45 PM CDT PROCEDURE/EXAM(S): US ABDOMEN COMPLETE ?? TECHNIQUE: 2D mode/color Doppler US abdomen (complete). PROVIDED CLINICAL HISTORY/INDICATION: Male of 52 years age. Elevated LFT's, Comment: ??concern for splenic laceration. See Reason for Exam. ? DICTATION LOCATION: Location [address] [place] [address] COMPARISON STUDIES: None. FINDINGS: ?? Pancreas: Visualized portions sonographically unremarkable for age. Liver: Increased hepatic echogenicity. No sonographically evident focal hepatic lesions. Patent visualized hepatic and portal veins without reversal flow. Biliary: Well distended gallbladder without gallstones or wall thickening. Common bile duct caliber is within expected limits. Kidney(s): No right renal hydronephrosis. No left renal hydronephrosis. Spleen: No sonographically evident focal splenic lesions. Normal size. Aorta: Normal caliber along the visualized segments. IVC: Unremarkable along the visualized segments. Urinary bladder: Unremarkable. Procedure Note Wesley Wright MD - 08/18/2023 PROCEDURE/EXAM(S): US ABDOMEN COMPLETE TECHNIQUE: 2D mode/color Doppler US abdomen (complete). PROVIDED CLINICAL HISTORY/INDICATION: Male of 52 years age. Elevated LFT's, Comment: concern for splenic laceration. See Reason for Exam. DICTATION LOCATION: [address] COMPARISON STUDIES: None. FINDINGS: Pancreas: Visualized portions sonographically unremarkable for age. Liver: Increased hepatic echogenicity. No sonographically evident focal hepatic lesions. Patent visualized hepatic and portal veins without reversal flow. Biliary: Well distended gallbladder without gallstones or wall thickening. Common bile duct caliber is within expected limits. Kidney(s): No right renal hydronephrosis. No left renal hydronephrosis. Spleen: No sonographically evident focal splenic lesions. Normal size. Aorta: Normal caliber along the visualized segments. IVC: Unremarkable along the visualized segments. Urinary bladder: Unremarkable. IMPRESSION: No splenic lesions evident on abdominal ultrasound. Hepatic steatosis. us Santiago R Herman DO US ORDERABLES Final Result from Last 3 Months or Most Recently Relevant to Health Maintenance Insurance [place] Advance Directives For more information, please contact: [phone] * Full Code (Latest Code Status on File) Date Activated Date Inactivated Comments 08/18/2023 12:37 AM 08/21/2023 5:40 PM Care Teams Mold Maintenance Technician Relationship Specialty Start Date End Date Eliane Alvarado MD [address] [place] [address] PCP - General Family Practice 03/05/23
[2024-12-28 06:30] VITALS: BP 153/80; PULSE 70; RESP 18; TEMP 36.3; O2SAT 99
[2024-12-28] MEDS: LACTATED RINGERS 1,000 ML 150 ML IV CONT (06:52)
--- NOTE | 2024-12-28 07:05 | P.PNAN_ITS ---
Anes - Initial Pre Proc Eval Procedure: Operation Date: 12/28/24 08:00 Proposed Procedures p Screening Colonoscopy - Loki Barbour MD Date/Time: 12/28/24 07:05 Surgeon: Loki Barbour MD Pre Op Diagnosis: personal hx colon polyps Patient Data Age: 54 Gender: M Height: 1.88 m Weight: 71.6 kg Allergies Allergy/AdvReac Type Severity Reaction Status Date / Time acetaminophen Allergy Mild SHAKING Verified 12/13/24 14:28 dextromethorphan Allergy Mild SHAKING Verified 12/13/24 14:28 doxylamine Allergy Mild SHAKING Verified 12/13/24 14:28 pseudoephedrine Allergy Mild SHAKING Verified 12/13/24 14:28 Home Medications ?Medication ?Instructions ?Recorded ?Confirmed ?Type folic acid 1 mg tablet 1 mg PO DAILY 08/26/23 12/28/24 History vitamin B complex (B 1 tablet PO DAILY 01/25/24 12/28/24 History Complex-Vitamin B12 tablet) multivitamin (Daily Multi-Vitamin 1 tablet PO DAILY #30 tabs 06/26/24 12/28/24 Rx tablet) omeprazole 20 mg capsule,delayed 20 mg PO DAILY #90 caps 08/01/24 12/28/24 Rx release apixaban 2.5 mg tablet (Eliquis) 2.5 mg PO BID 11/02/24 12/28/24 History pregabalin 100 mg capsule (Lyrica) 100 mg PO TID #270 caps 11/02/24 12/28/24 Rx cholecalciferol (vitamin D3) 1,250 50,000 unit PO WEEKLY 12/13/24 12/28/24 History mcg (50,000 unit) tablet (Dialyvite Vitamin D3 Max) vitamin B complex-vitamin C 100 1 tablet PO WEEKLY 12/13/24 12/28/24 History mg-folic acid 1 mg tablet (Dialyvite) Patient hx anesthesia problems: none Family hx anesthesia problems: none Results Review: All pre-operative results and documents have been reviewed as part of the pre- operative evaluation. PENDING SALE TO [facility] Past Medical History Medical History Erythrocytosis History of colon polyps Peripheral neuropathy Venous stasis dermatitis of left lower extremity Vitamin B12 deficiency Fatty liver Recurrent pulmonary embolism 01/15 and 08/15 Venous thromboembolism 01/15 and 08/15 - PE 08/15 - right lower extremity DVT Vitamin D deficiency Gastritis ETOH abuse Stuttering Tobacco abuse Pulmonary embolism and infarction (~12/2022) Hypertension Surgical History Surgical History History of left inguinal hernia repair (~2001) History of right inguinal hernia repair (~1996) Social History Social History Smoking packs per day: 1 Smoking cigarettes per day: 20.0 Years smoked: 35 Smoking pack-years: 35.00 Smoking status: Current every day smoker Tobacco type: cigarettes Alcohol intake: never Drinks per week: 30 Alcohol use details: Quit drinking 06/2024. Used to drink fireball and beer daily Substance use: never Substance use type: does not use Do You Feel Safe in your Home?: Yes Lack of Transportation: No Lack of Food: Never True Current Housing: I Have Housing Concerned About Future Housing: No Difficulty Paying Gas/Electric Bills: No Difficulty Paying for Meds: No Currently Unemployed: No Education: High School Diploma/GED Difficulty w/ Childcare or Family Care: No Living arrangements: with family Occupation/Education: occupation Additional occupation/education comments: [employer] Gender identity (if verbalized by the patient): Male Spiritual care concerns: No Anes - Eval Final PreProcedure Day of Procedure 12/28/24 07:05 Patient weight: normal Heart: regular rate and rhythm Lungs: clear to auscultation Airway: Mallampati scale class II Neurological: alert and oriented Last oral intake: >/= 8 hours ASA classification: III Emergent: no Anesthetic plan: proceed Anesthesia type and monitoring: general GIVS and standard monitoring Results Review: All pre-operative results and documents have been reviewed as part of the pre- operative evaluation. Informed Consent: The patient's anesthetic plan and its attendant risks and benefits were discussed with the patient/family/POA. Questions were solicited and answers provided to the satisfaction of the patient/family/POA.
--- NOTE | 2024-12-28 07:45 | PM.HPGS ---
History of Present Illness History of Present Illness Consent: Risks, benefits, and alternatives have been discussed and questions answered. Patient agrees to proceed with procedure. Chief complaint: personal hx colon polyps Narrative: Danilo Esposito is a 54 year old male with large polyps removed in 2022 Review of Systems Review of Systems: All systems reviewed & are unremarkable except as noted in HPI and below PMFSH Past Medical History Medical History (Updated 12/28/24 @ 07:46 by Loki Barbour MD) Adenomatous colon polyp Erythrocytosis History of colon polyps Peripheral neuropathy Venous stasis dermatitis of left lower extremity Vitamin B12 deficiency Fatty liver Recurrent pulmonary embolism 01/15 and 08/15 Venous thromboembolism 01/15 and 08/15 - PE 08/15 - right lower extremity DVT Vitamin D deficiency Gastritis ETOH abuse Stuttering Tobacco abuse Pulmonary embolism and infarction (~12/2022) Hypertension Surgical History Surgical History History of left inguinal hernia repair (~2001) History of right inguinal hernia repair (~1996) Social History Social History Smoking packs per day: 1 Smoking cigarettes per day: 20.0 Years smoked: 35 Smoking pack-years: 35.00 Smoking status: Current every day smoker Tobacco type: cigarettes Alcohol intake: never Drinks per week: 30 Alcohol use details: Quit drinking 06/2024. Used to drink fireball and beer daily Substance use: never Substance use type: does not use Do You Feel Safe in your Home?: Yes Lack of Transportation: No Lack of Food: Never True Current Housing: I Have Housing Concerned About Future Housing: No Difficulty Paying Gas/Electric Bills: No Difficulty Paying for Meds: No Currently Unemployed: No Education: High School Diploma/GED Difficulty w/ Childcare or Family Care: No Living arrangements: with family Occupation/Education: occupation Additional occupation/education comments: [employer] Gender identity (if verbalized by the patient): Male Spiritual care concerns: No Meds Home Medications and Allergies Home Medications ?Medication ?Instructions ?Recorded ?Confirmed ?Type folic acid 1 mg tablet 1 mg PO DAILY 08/26/23 12/28/24 History vitamin B complex (B 1 tablet PO DAILY 01/25/24 12/28/24 History Complex-Vitamin B12 tablet) multivitamin (Daily Multi-Vitamin 1 tablet PO DAILY #30 tabs 06/26/24 12/28/24 Rx tablet) omeprazole 20 mg capsule,delayed 20 mg PO DAILY #90 caps 08/01/24 12/28/24 Rx release apixaban 2.5 mg tablet (Eliquis) 2.5 mg PO BID 11/02/24 12/28/24 History pregabalin 100 mg capsule (Lyrica) 100 mg PO TID #270 caps 11/02/24 12/28/24 Rx cholecalciferol (vitamin D3) 1,250 50,000 unit PO WEEKLY 12/13/24 12/28/24 History mcg (50,000 unit) tablet (Dialyvite Vitamin D3 Max) vitamin B complex-vitamin C 100 1 tablet PO WEEKLY 12/13/24 12/28/24 History mg-folic acid 1 mg tablet (Dialyvite) Allergies Allergy/AdvReac Type Severity Reaction Status Date / Time acetaminophen Allergy Mild SHAKING Verified 12/13/24 14:28 dextromethorphan Allergy Mild SHAKING Verified 12/13/24 14:28 doxylamine Allergy Mild SHAKING Verified 12/13/24 14:28 pseudoephedrine Allergy Mild SHAKING Verified 12/13/24 14:28 Exam Const: General: comfortable and no acute distress HENMT: Face/Nose/Sinus: Normal nares present Eyes: General: appearance normal, both eyes and all related structures Neck: Neck: no JVD Resp: Auscultation: clear to auscultation bilaterally Cardio: Rate: regular rate Rhythm: regular rhythm GI: Inspection: non-distended GI Palp: Yes Soft to palpation Skin: General skin exam: normal color Neuro: Speech: normal speech Extrem: General: normal to inspection Psych: Mental Status: mental status grossly normal Assessment and Plan Assessment and plan (1) Adenomatous colon polyp: Code(s): D12.6 - Benign neoplasm of colon, unspecified Status: Acute Assessment and Plan: colonoscopy
[2024-12-28 08:02] VITALS: BP 97/60; PULSE 68; RESP 14; O2SAT 99
[2024-12-28 08:12] VITALS: BP 99/68; PULSE 67; RESP 20; O2SAT 97
[2024-12-28 08:22] VITALS: BP 126/75; PULSE 70; RESP 21; O2SAT 100
== END 2024-12-28 08:38 | disposition home or self-care (01) ==
PROVIDERS: PCP Family Medicine; Visit Provider Internal Medicine Gastroenterology
PROC: 0DJD8ZZ Inspection of Lower Intestinal Tract, Via Natural or Artificial Opening Endoscopic (ICD-10-PCS; CPT 45378; principal; 2024-12-28 08:00)
DX: Z12.11 Encounter for screening for malignant neoplasm of colon (principal); D12.3 Benign neoplasm of transverse colon; K64.8 Other hemorrhoids; F17.210 Nicotine dependence, cigarettes, uncomplicated
CPT/HCPCS: 45385; 88305; J2003; J2704; J7120

== ENCOUNTER 2025-05-13 09:00 | Inpatient (IN) | payer OTHER, SELFPAY ==
[2025-05-13] VITALS (9 sets, daily range): BP systolic 106–169; BP diastolic 62–92; PULSE 74–91; RESP 14–18; TEMP 36.5–37.5; O2SAT 94–100; BMI 20.8
--- NOTE | ~2025-05-13 | CT_ITS ---
EXAMINATION: CT LE LT w con DATE: 05/13/2025 12:01 INDICATION: Neuropathy with necrotic tissue] at the left lower leg TECHNIQUE: High resolution computed tomography (CT) of the left lower leg was performed with 100 mL O mnipaque-350 intravenous contrast. Additional sagittal and coronal reconstructions were performed. Au tomated exposure control and iterative reconstruction technique were employed. The dose-length produc t was 1110.95 mGy-cm. COMPARISON: None FINDINGS: Skin ulcerations anterior to the distal tibia, laterally at the distal calf and at the posterior medi al aspect of the mid calf. No evident abscess or soft tissue gas. Bone alignment is normal. No fractu re. No cortical erosions to suggest osteomyelitis. There is diffuse periosteal reaction along the tib ial and fibular diaphyses. 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 The re are subcutaneous varicosities along the medial aspect of the left calf. No evident venous thrombos is. IMPRESSION: 1. Skin ulcerations at the mid to distal calf without evident abscess or soft tissue gas. 2. Periosteal reaction along the left tibial and fibular diaphyses most likely related to chronic ren ous stasis. Differential would include hypertrophic pulmonary osteoarthropathy although there is no e vident pulmonary disease on chest CT dated 06/24/2024 Reviewed, dictated and finalized at location A. IMPRESSION: 1. Skin ulcerations at the mid to distal calf without evident abscess or soft t issue gas. 2. Periosteal reaction along the left tibial and fibular diaphyses most likely related to chronic venous stasis. Differential would include hypertrophic pulmo nary osteoarthropathy although there is no evident pulmonary disease on chest C T dated 06/24/2024
--- NOTE | 2025-05-13 10:58 | ED_ITS ---
HPI - General Adult General Chief complaint: Wound/Laceration Stated complaint: bugs in open wound Time Seen by Provider: 05/13/25 09:56 Related Data Home Medications ?Medication ?Instructions ?Recorded ?Confirmed ?Last Taken ?Type folic acid 1 mg tablet 1 mg PO DAILY 08/26/23 01/02/25 12/27/24 History apixaban 2.5 mg tablet (Eliquis) 2.5 mg PO BID 11/02/24 01/02/25 12/25/24 History cholecalciferol (vitamin D3) 1,250 50,000 unit PO WEEKLY 12/13/24 01/02/25 12/25/24 History mcg (50,000 unit) tablet (Dialyvite Vitamin D3 Max) vitamin B complex-vitamin C 100 1 tablet PO WEEKLY 12/13/24 01/02/25 Unknown History mg-folic acid 1 mg tablet (Dialyvite) Allergies Allergy/AdvReac Type Severity Reaction Status Date / Time acetaminophen Allergy Mild SHAKING Verified 05/13/25 09:03 dextromethorphan Allergy Mild SHAKING Verified 05/13/25 09:03 doxylamine Allergy Mild SHAKING Verified 05/13/25 09:03 pseudoephedrine Allergy Mild SHAKING Verified 05/13/25 09:03 [facility] Past Medical History Medical History (Updated 05/13/25 @ 13:59 by Tam Torres MD) MVP (mitral valve prolapse) Peripheral neuropathy Adenomatous colon polyp Vitamin B12 deficiency Vitamin D deficiency Venous thromboembolism 01/15 and 08/15 - PE 08/15 - right lower extremity DVT Recurrent pulmonary embolism 01/15 and 08/15 Pancreatitis Erythrocytosis History of colon polyps Venous stasis dermatitis of left lower extremity Fatty liver Gastritis ETOH abuse Stuttering Tobacco abuse Pulmonary embolism and infarction (~12/2022) Hypertension Surgical History Surgical History History of left inguinal hernia repair (~2001) History of right inguinal hernia repair (~1996) Social History Social History Smoking packs per day: 1 Smoking cigarettes per day: 20.0 Years smoked: 35 Smoking pack-years: 35.00 Smoking status: Current every day smoker Tobacco type: cigarettes Alcohol intake: never Drinks per week: 30 Alcohol use details: Quit drinking 06/2024. Used to drink fireball and beer daily Substance use: never Substance use type: does not use Do You Feel Safe in your Home?: Yes Lack of Transportation: No Lack of Food: Never True Current Housing: I Have Housing Concerned About Future Housing: No Difficulty Paying Gas/Electric Bills: No Difficulty Paying for Meds: No Currently Unemployed: No Education: High School Diploma/GED Difficulty w/ Childcare or Family Care: No Living arrangements: with family Occupation/Education: occupation Additional occupation/education comments: [employer] Gender identity (if verbalized by the patient): Male Spiritual care concerns: No Exam Narrative: APPEARANCE: No apparent distress. Head: atraumatic. EYES: EOMI, NOSE: Atraumatic NECK: Trachea midline RESPIRATORY: No increased rate of breathing CARDIOVASCULAR: RRR, ABDOMINAL: Non-distended MUSCULOSKELETAl: No obvious deformities NEURO: Alert. Moving 4/4 extremities SKIN:: Patient has lipodermatosclerosis of both lower extremities, however on the left side he has several breaks in the skin that are teeming with maggots. Overlying skin appears dry and necrotic but no overt cellulitic changes. Foot is neurovascularly intact bilat PSYCHIATRIC: Normal affect Course Vital Signs Vital signs: Vital Signs Temperature 99.5 F 05/13/25 09:03 Pulse Rate 84 05/13/25 09:03 Respiratory Rate 16 05/13/25 09:03 Blood Pressure 169/81 H 05/13/25 09:03 Pulse Oximetry 100 05/13/25 09:03 Oxygen Delivery Room Air 05/13/25 09:03 Temperature 98.3 F 05/13/25 09:33 Pulse Rate 91 05/13/25 09:33 Respiratory Rate 15 05/13/25 09:33 Blood Pressure 141/77 H 05/13/25 09:33 Pulse Oximetry 98 05/13/25 09:33 Oxygen Delivery Room Air 05/13/25 09:03 Medical Decision Making [facility] Narrative Medical decision making narrative: -Course: 54-year-old male with history of alcoholism, venous insufficiency and peripheral neuropathy presenting for maggots in his legs. CT showed superficial ulcerations. Laboratory studies within normal limits. Patient started antibiotics to cover infection. Case was discussed with Dr. Ortiz as the patient will need surgical debridement. Patient will be admitted the hospital for further management. -DDX includes but is not limited to: Cellulitis, dry gangrene, peripheral vascular disease Vital Signs Vital Signs: Vital Signs Temperature 99.5 F 05/13/25 09:03 Pulse Rate 84 05/13/25 09:03 Respiratory Rate 16 05/13/25 09:03 Blood Pressure 169/81 H 05/13/25 09:03 Pulse Oximetry 100 05/13/25 09:03 Oxygen Delivery Room Air 05/13/25 09:03 Temperature 98.3 F 05/13/25 09:33 Pulse Rate 91 05/13/25 09:33 Respiratory Rate 15 05/13/25 09:33 Blood Pressure 141/77 H 05/13/25 09:33 Pulse Oximetry 98 05/13/25 09:33 Oxygen Delivery Room Air 05/13/25 09:03 Discharge Plan Discharge Clinical Impression: Venous stasis dermatitis of left lower extremity, Infestation by maggots Patient Disposition: Still a Patient Condition: Stable Patient Language: [place] Prescriptions: No Action Eliquis 2.5 mg tablet 2.5 mg PO BID pregabalin [Lyrica] 100 mg capsule 100 mg PO TID Qty: 270 0RF folic acid 1 mg tablet 1 mg PO DAILY multivitamin [Daily Multi-Vitamin] Tablet 1 tablet PO DAILY Qty: 30 0RF cholecalciferol (vitamin D3) [Dialyvite Vitamin D3 Max] 1,250 mcg (50,000 unit) tablet 50,000 unit PO WEEKLY Dialyvite 100-1 mg tablet 1 tablet PO WEEKLY omeprazole 20 mg capsule,delayed release(DR/EC) See Rx Instructions .ROUTE .COMPLEX Qty: 90 0RF Dose Instruction: TAKE 1 CAPSULE BY MOUTH DAILY Rx Instructions: TAKE 1 CAPSULE BY MOUTH DAILY Follow-up/Referrals: Lexi Alvarado MD [Primary Care Provider] -
[2025-05-13 11:10] LABS: Device ROOM AIR; Fractional Inspired Oxygen 21 %; HCO3 VBG 27.1 mEq/l (24.0-30.0); PO2 VBG < 27.0 mmHg (35.0-45.0); pH VBG 7.449 (7.300-7.400)
[2025-05-13 11:23] LABS: Basophils Percent Auto 0.3 % (0.2-1.2); Eosinophils Percent Auto 0.3 % (0-4.4); Hematocrit 56.4 % (42.0-52.0); Hemoglobin 18.9 g/dL (14.0-18.0); Immature Granulocyte Absolute 0.05 K/mm3 (0.00-0.031); Immature Granulocyte Percent A 0.5 % (0-0.5); Immature Platelet Fraction Pct 3.3 % (0.9-11.2); Lymphocytes Absolute Auto 0.98 K/mm3 (0.9-3.2); Lymphocytes Percent Auto 10.7 % (18.3-44.2); Mean Corpuscular HGB Conc 33.5 g/dl (32-36); Mean Corpuscular Hemoglobin 36.8 pg (26-34); Mean Corpuscular Volume 109.7 fl (80-100); Mean Platelet Volume 9.6 fl (7.4-10.4); Monocytes Absolute Auto 0.8 K/mm3 (0.1-0.6); Monocytes Percent Auto 8.2 % (2.6-8.5); Neutrophils Absolute Auto 7.3 K/mm3 (1.3-6.7); Platelet Count Result 65 k/mm3 (150-375); Red Blood Count 5.14 M/mm3 (4.6-6.20); Red Cell Distribution Width 15.3 % (11.5-14.5); White Blood Count 9.1 K/mm3 (4.5-10.0)
[2025-05-13 11:35] LABS: Glucose Point of Care 79 mg/dl (65-105)
[2025-05-13 11:36] LABS: Prothrombin Time 13.6 Seconds (11.1-14.7)
[2025-05-13 11:37] LABS: Partial Thromboplastin Time 24.3 Seconds (22.3-36.8)
[2025-05-13 11:39] LABS: Alanine Aminotransferase 14 U/L (6-50); Albumin Level 4.2 g/dL (3.5-5.1); Alkaline Phosphatase 119 U/L (38-126); Anion Gap 10 mmol/L (4-12); Aspartate Amino Transferase 26 U/L (17-59); Bilirubin,Total 1.5 mg/dL (0.2-1.3); Blood Urea Nitrogen 7 mg/dL (9-20); Calcium 8.8 mg/dL (8.4-10.2); Carbon Dioxide 26 mmol/L (22-30); Chloride 99 mmol/L (98-107); Estimated CRCL calculation 74 ml/min; Estimated Glomerular Filt Rate > 60; Glucose 95 mg/dL (65-110); Lactic Acid Reflex 1.4 mmol/L (0.7-2.0); Phosphorus 2.9 mg/dL (2.5-4.5); Potassium 3.7 mmol/L (3.4-5.0); Sodium 135 mmol/L (137-145); Total Protein 8.2 g/dL (6.3-8.2)
[2025-05-13] MEDS: HYDROmorphone HCL INJ (*CRX) 2 MG/ML VIAL 1 MG IV PUSH (12:12)
[2025-05-13] MEDS: LACTATED RINGERS 100 ML 999 ML IV CONT (12:14)
--- NOTE | 2025-05-13 12:15 | PC.NURSE ---
EDP aware of maggots in pt wound, advised this RN on wound care until seen by surgeon
[2025-05-13] MEDS: PIPERACILLN/TAZ 3.375GM/NS50ML 3.375 GM/50 ML BAG IVPB ×3 (12:21→23:57)
[2025-05-13] MEDS: LACTATED RINGERS 1,000 ML 999 ML IV CONT ×2 (12:41→12:42)
[2025-05-13 12:42] LABS: Add Urine Microscopic? YES; Appearance Urine Clear (Clear); Bacteria Urine None Seen /hpf; Bilirubin Urine Negative (Negative); Blood Urine Negative (Negative); Color Urine Yellow (Yellow); Glucose Urine UA Negative (Negative); Ketones Urine Negative (Negative); Leukocyte Esterase Ur Negative LEU/UL (Negative); Nitrate Urine Negative (Negative); Non Pathogenic Casts 0-2; Protein Urine 1+ mg/dL (Negative); RBC Urine 0-2 /hpf (0-2); Specific Grav Ur 1.036 (1.001-1.035); Squamous Epithelial Cell Urine None Seen /hpf (Few); WBC Urine 0-5 /hpf (0-3)
--- NOTE | 2025-05-13 13:48 | P.HP_ITS ---
H&P: HPI History of Present Illness Date/Time: 05/13/25 13:48 Chief Complaint: Lower Extremity Wound Narrative: 54 y/o M with PMH of peripheral neuropathy, vitamin B12 deficiency, recurrent PE (12/2022, 07/2023), DVT (2022), pancreatitis, alcohol abuse, and hypertension presents here with wound to his left lower extremity. The patient presents here from home for further evaluation of a wound to his left lower extremity. The patient does not know when the wound developed, however reports that has at least been a few months. Seeking care today when he noted maggots for the 1st time this morning. Has previously seen at consumer insight analyst at [facility] for a few months and they gave him topical medications that he reports did not help at all. He reports accompanying mild chills. Denies fever, nausea, vomiting, diarrhea, or body aches. He has a history of neuropathy. History of alcoholism - now drinking NA beers. Initial VS at presentation: 99.5? F, HR 84, R 16, 169/81, and 100% on RA. ED workup showed: No leukocytosis, hemoglobin 18.9, normal coags, sodium 135, creatinine 0.98 and GFR >60, normal LFTs, total bilirubin 1.5, UA showed a high specific gravity 1+ protein otherwise unremarkable. CT of the left lower extremity showed skin ulcerations at the mid to distal calf without evidence of abscess or soft tissue gas, periosteal reaction along the left tibial and fibular diaphyses most likely related to chronic venous stasis, differential would include hypertrophic pulmonary osteoarthropathy although there is no evidence of pulmonary disease on chest CT from June 24, 2024. Review of Systems Review of Systems: All systems reviewed & are unremarkable except as noted in HPI and below [facility] Past Medical History Medical History MVP (mitral valve prolapse) Peripheral neuropathy Adenomatous colon polyp Vitamin B12 deficiency Vitamin D deficiency Venous thromboembolism 01/15 and 08/15 - PE 08/15 - right lower extremity DVT Recurrent pulmonary embolism 01/15 and 08/15 Pancreatitis Erythrocytosis History of colon polyps Venous stasis dermatitis of left lower extremity Fatty liver Gastritis ETOH abuse Stuttering Tobacco abuse Pulmonary embolism and infarction (~12/2022) Hypertension Surgical History Surgical History History of left inguinal hernia repair (~2001) History of right inguinal hernia repair (~1996) Social History Social History Smoking packs per day: 1 Smoking cigarettes per day: 20.0 Years smoked: 35 Smoking pack-years: 35.00 Smoking status: Current every day smoker Alcohol intake: former Drinks per week: 30 Alcohol use details: Quit drinking 06/2024. Used to drink fireball and beer daily Substance use: never Substance use type: former substance user and marijuana Do You Feel Safe in your Home?: Yes Lack of Transportation: No Lack of Food: Never True Current Housing: I Have Housing Concerned About Future Housing: No Difficulty Paying Gas/Electric Bills: No Difficulty Paying for Meds: No Currently Unemployed: No Education: High School Diploma/GED Difficulty w/ Childcare or Family Care: No Living arrangements: with family Occupation/Education: occupation Additional occupation/education comments: [employer] Gender identity (if verbalized by the patient): Male Spiritual care concerns: No Meds Home Medications and Allergies Home Medications ?Medication ?Instructions ?Recorded ?Confirmed ?Type folic acid 1 mg tablet 1 mg PO DAILY 08/26/23 05/13/25 History multivitamin (Daily Multi-Vitamin 1 tablet PO DAILY #30 tabs 06/26/24 05/13/25 Rx tablet) apixaban 2.5 mg tablet (Eliquis) 2.5 mg PO BID 11/02/24 05/13/25 History pregabalin 100 mg capsule (Lyrica) 100 mg PO TID #270 caps 11/02/24 05/13/25 Rx vitamin B complex-vitamin C 100 1 tablet PO WEEKLY 12/13/24 05/13/25 History mg-folic acid 1 mg tablet (Dialyvite) omeprazole 20 mg capsule,delayed See Rx Instructions .Route 02/27/25 05/13/25 Rx release .COMPLEX #90 caps Allergies Allergy/AdvReac Type Severity Reaction Status Date / Time acetaminophen Allergy Mild SHAKING Verified 05/13/25 09:03 dextromethorphan Allergy Mild SHAKING Verified 05/13/25 09:03 doxylamine Allergy Mild SHAKING Verified 05/13/25 09:03 pseudoephedrine Allergy Mild SHAKING Verified 05/13/25 09:03 Vital Signs Vital Signs - 24 hr 05/13/25 09:03 05/13/25 09:33 05/13/25 11:28 Temperature 99.5 F 98.3 F Pulse Rate 84 91 81 Respiratory Rate 16 15 18 Blood Pressure 169/81 H 141/77 H 150/86 H Pulse Oximetry 100 98 97 Oxygen Delivery Room Air 05/13/25 12:25 Temperature Pulse Rate 87 Respiratory Rate 14 Blood Pressure 161/92 H Pulse Oximetry 96 Oxygen Delivery Exam Const: General: comfortable and no acute distress Other: , male, nontoxic appearance HENMT: Face/Nose/Sinus: Normal nares present Mouth: Yes moist mucous membranes Eyes: General: appearance normal, both eyes and all related structures Sclera: sclerae normal Pupils: Equal, round and reactive pupils present EOM: EOMs intact bilaterally Resp: Effort & Inspection: normal respiratory effort Auscultation: clear to auscultation bilaterally Cardio: Rate: regular rate Other: S1-S2 present without murmur, rub, ectopy GI: Other: Abdomen soft, nondistended, nontender. Normoactive bowel sounds in all quadrants. Skin: Other: Lipodermatosclerosis of BLE. No open wounds to the RLE. Multiple open wounds to the RLE with large volume of live maggots. Skin appears dry with some necrotic changes, but no signs of infection including erythema or purulent drainage. Neurovascularly intact. Neuro: Speech: normal speech Motor exam (neuro): 5/5 motor strength present throughout Sensory Exam: normal sensation Other: A&O x4 Extrem: General: normal exam except as noted (See skin exam) Psych: Mental Status: mental status grossly normal Affect: normal affect Other: Good insight judgment, pleasant H&P: Results Labs Labs: Short CBC 05/13/25 Range/Units 11:15 WBC 9.1 (4.5-10.0) K/mm3 Hgb 18.9 H (14.0-18.0) g/dL Hct 56.4 H (42.0-52.0) % Plt Count 65 L (150-375) k/mm3 BMP 05/13/25 11:15 Sodium 135 L Potassium 3.7 Chloride 99 Carbon Dioxide 26 BUN 7 L Creatinine 0.98 Glucose 95 Calcium 8.8 Liver Function 05/13/25 Range/Units 11:15 Total Bilirubin 1.5 H (0.2-1.3) mg/dL AST 26 (17-59) U/L ALT 14 (6-50) U/L Alkaline Phosphatase 119 (38-126) U/L Albumin 4.2 (3.5-5.1) g/dL Urine 05/13/25 Range/Units 12:18 Urine Color Yellow (Yellow) Urine Appearance Clear (Clear) Urine pH 7.0 (5.0-9.0) Ur Specific [place] 1.036 H (1.001-1.035) Urine Protein 1+ H (Negative) mg/dL Urine Glucose (UA) Negative (Negative) mg/dL Assessment and Plan Assessment and plan (1) Skin ulcer of left lower leg: Qualifiers: Non-pressure ulcer stage: unspecified non-pressure ulcer stage Qualified Code(s): L97.929 - Non-pressure chronic ulcer of unspecified part of left lower leg with unspecified severity Code(s): L97.929 - Non-pressure chronic ulcer of unspecified part of left lower leg with unspecified severity Status: Acute Assessment and Plan: - CT LLE, 05/13: 1. Skin ulcerations at the mid to distal calf without evident abscess or soft tissue gas. 2. Periosteal reaction along the left tibial and fibular diaphyses most likely related to chronic venous stasis. Differential would include hypertrophic pulmonary osteoarthropathy although there is no evident pulmonary disease on chest CT dated 06/24/2024 - General Surgery consulted for debridement, will make NPO at midnight - Wound RN consulted - started on Vanc and Zosyn on 05/13 - montior WBC (2) ETOH abuse: Code(s): F10.10 - Alcohol abuse, uncomplicated Status: Chronic Assessment and Plan: - cessation of daily alcohol use years ago, now drinks NA beer. However upon review, hematology reported patient was still drinking. C1 place. - CIWA protocol in place Ativan prn Librium prn seizure precautions neurochecks Q4H - IV fluids: 3L in ED, will give banana bag x1 - start daily thiamine and folic acid - antiemetics PRN Plan Diet: Heart healthy, NPO at midnight in case of need for procedure GI Prophylaxis: Omeprazole p.o. DVT Prophylaxis: Eliquis IV fluids: 3L bolus -> banana bag Lines/Tubes: Peripheral IV Code Status: Full code Quality VTE Prophylaxis VTE prophylaxis: pharmacologic ordered Hospitalist MIPS Advance Care Plan I have confirmed that the patient's Advanced Care Plan is present, code status is documented, or surrogate decision maker is listed in patient medical record.: Yes Medication Reconciliation I have utilized all available resources to obtain, update and review the patients current medications (includes all prescriptions, OTC, herbals, cannabis, and nutritional supplements).: Yes
[2025-05-13] MEDS: VANCOMYCIN 1,250 MG/NS 250 ML 1,250 MG/250 ML BAG 166.67 MG IVPB (13:50)
[2025-05-13 14:29] LABS: Glucose Point of Care 89 mg/dl (65-105)
--- NOTE | 2025-05-13 15:11 | ADMGEN ---
This patient, Danilo Esposito, was admitted to [facility] Surg Room 300-01. Patient/family oriented to hospital policies and general routines including ID bracelet, bed and alarms, visiting hours, pain management, procedures, bathroom and other care routines, personal items, smoking policy, room service/diet, and visiting hours. Information on how to activate the Rapid Response Team has been discussed. Patient/Family are encouraged to report perceived risks to care and to ask questions if they do not understand what they are told or what they should do.
[2025-05-13] MEDS: THIAMINE HCL INJ 100 MG, FOLIC ACID INJ 1 MG, MAGNESIUM SULFATE INJ 1 GM, MULTIVITAMINS... 125 MG IV CONT (15:48)
[2025-05-13] MEDS: MORPHINE SULFATE (*CRX) 2 MG/ML INJ IV PUSH ×2 (15:55→22:20)
--- NOTE | 2025-05-13 17:00 | PC.NURSE ---
Pt was brought up to the floor with maggots in the wound. This RN was instructed to leave them in until surgery could see the pt when report was called up so that they could help debride the wound. electrical prospecting supervisor was made aware that maggots were still in the wound and had not been cleaned out. Pt will continue to be monitored.
[2025-05-13] MEDS: oxyCODONE HCL (*CRX) 2.5 MG TAB IR PO ×2 (18:12→23:57)
[2025-05-14] MEDS: PIPERACILLN/TAZ 3.375GM/NS50ML 3.375 GM/50 ML BAG IVPB ×3 (05:22→17:43)
[2025-05-14] MEDS: oxyCODONE HCL (*CRX) 2.5 MG TAB IR PO (05:30)
[2025-05-14 06:00] VITALS: BP 100/52; PULSE 73; RESP 18; TEMP 36.7; O2SAT 95
[2025-05-14] MEDS: VANCOMYCIN 1,250 MG/NS 250 ML 1,250 MG/250 ML BAG 166.67 MG IVPB ×2 (06:58→18:19)
[2025-05-14 07:21] LABS: Alanine Aminotransferase 8 U/L (6-50); Albumin Level 2.8 g/dL (3.5-5.1); Alkaline Phosphatase 64 U/L (38-126); Anion Gap 7 mmol/L (4-12); Aspartate Amino Transferase 27 U/L (17-59); Bilirubin,Total 1.2 mg/dL (0.2-1.3); Blood Urea Nitrogen 4 mg/dL (9-20); Calcium 7.5 mg/dL (8.4-10.2); Carbon Dioxide 23 mmol/L (22-30); Chloride 100 mmol/L (98-107); Estimated CRCL calculation 82 ml/min; Estimated Glomerular Filt Rate > 60; Glucose 95 mg/dL (65-110); Magnesium 2.2 mg/dL (1.6-2.3); Potassium 3.8 mmol/L (3.4-5.0); Sodium 130 mmol/L (137-145); Total Protein 5.9 g/dL (6.3-8.2)
[2025-05-14 07:51] LABS: Basophils Percent Auto 0.5 % (0.2-1.2); Eosinophils Absolute Auto 0.1 K/mm3 (0-0.3); Hematocrit 45.8 % (42.0-52.0); Hemoglobin 15.2 g/dL (14.0-18.0); Immature Granulocyte Absolute 0.04 K/mm3 (0.00-0.031); Immature Granulocyte Percent A 0.5 % (0-0.5); Immature Platelet Fraction Pct 4.5 % (0.9-11.2); Lymphocytes Absolute Auto 1.12 K/mm3 (0.9-3.2); Lymphocytes Percent Auto 13.5 % (18.3-44.2); Mean Corpuscular HGB Conc 33.2 g/dl (32-36); Mean Corpuscular Volume 111.4 fl (80-100); Monocytes Absolute Auto 0.8 K/mm3 (0.1-0.6); Monocytes Percent Auto 9.7 % (2.6-8.5); Neutrophils Absolute Auto 6.2 K/mm3 (1.3-6.7); Neutrophils Percent Auto 74.8 % (45.5-73.1); Platelet Count Result 84 k/mm3 (150-375); Red Blood Count 4.11 M/mm3 (4.6-6.20); Red Cell Distribution Width 15.2 % (11.5-14.5); White Blood Count 8.3 K/mm3 (4.5-10.0)
[2025-05-14 08:00] VITALS: BP 100/52
[2025-05-14 08:26] LABS: Macrocytosis 1+ (NORMAL); Schistocytes None Seen
[2025-05-14 08:33] LABS: Platelet Estimate Decreased (Adequate)
[2025-05-14] MEDS: PANTOPRAZOLE 40 MG TABLET PO (08:51)
[2025-05-14] MEDS: PREGABALIN (*CRX) 50 MG CAPSULE 100 MG PO ×3 (08:51→16:18)
[2025-05-14] MEDS: THIAMINE HCL 100 MG TABLET PO (08:51)
[2025-05-14] MEDS: FOLIC ACID 1 MG TABLET PO (08:51)
[2025-05-14] MEDS: APIXABAN 2.5 MG TABLET PO ×2 (08:51→20:14)
--- NOTE | 2025-05-14 10:25 | PM.IMPN ---
Progress Note: A&P Assessment and Plan (1) Skin ulcer of left lower leg: Qualifiers: Non-pressure ulcer stage: unspecified non-pressure ulcer stage Qualified Code(s): L97.929 - Non-pressure chronic ulcer of unspecified part of left lower leg with unspecified severity Code(s): L97.929 - Non-pressure chronic ulcer of unspecified part of left lower leg with unspecified severity Status: Acute Assessment and Plan: - CT LLE, 05/13: 1. Skin ulcerations at the mid to distal calf without evident abscess or soft tissue gas. 2. Periosteal reaction along the left tibial and fibular diaphyses most likely related to chronic venous stasis. Differential would include hypertrophic pulmonary osteoarthropathy although there is no evident pulmonary disease on chest CT dated 06/24/2024 - Wound RN consulted - on Vanc and Zosyn on 05/13 - General surgery consulted for debridement (2) ETOH abuse: Code(s): F10.10 - Alcohol abuse, uncomplicated Status: Chronic Assessment and Plan: - cessation of daily alcohol use years ago, now drinks NA beer. However upon review, hematology reported patient was still drinking. C1 place. on CICT protocol - IV fluids: 3L in ED, will give banana bag x1 - start daily thiamine and folic acid - antiemetics PRN Plan Diet: Heart healthy DVT Prophylaxis: Eliquis Code Status: Full code Subjective Date/time seen: 05/14/25 10:25 Interval history: comfortable at bedside Left leg ulcer infested with maggots Review of Systems Review of Systems: All systems reviewed & are unremarkable except as noted in HPI and below Exam Const: General: comfortable and no acute distress Other: , male, nontoxic appearance HENMT: Face/Nose/Sinus: Normal nares present Mouth: Yes moist mucous membranes Eyes: General: appearance normal, both eyes and all related structures Sclera: sclerae normal Pupils: Equal, round and reactive pupils present EOM: EOMs intact bilaterally Resp: Effort & Inspection: normal respiratory effort Auscultation: clear to auscultation bilaterally Cardio: Rate: regular rate Other: S1-S2 present without murmur, rub, ectopy GI: Other: Abdomen soft, nondistended, nontender. Normoactive bowel sounds in all quadrants. Skin: Other: Lipodermatosclerosis of BLE. No open wounds to the RLE. Multiple open wounds to the RLE with large volume of live maggots. Skin appears dry with some necrotic changes, but no signs of infection including erythema or purulent drainage. Neurovascularly intact. Neuro: Cranial nerves: Yes Equal, round and reactive pupils present Speech: normal speech Motor exam (neuro): 5/5 motor strength present throughout Sensory Exam: normal sensation Other: A&O x4 Extrem: General: normal exam except as noted (See skin exam) Psych: Mental Status: mental status grossly normal Affect: normal affect Other: Good insight judgment, pleasant Objective Data Vital Signs Vital Signs: Vital Signs - 24 hr 05/13/25 11:28 05/13/25 12:25 05/13/25 13:53 Temperature Pulse Rate 81 87 84 Respiratory Rate 18 14 16 Blood Pressure 150/86 H 161/92 H 126/69 Pulse Oximetry 97 96 97 Oxygen Delivery 05/13/25 14:16 05/13/25 14:30 05/13/25 14:54 Temperature Pulse Rate 80 77 84 Respiratory Rate 18 14 16 Blood Pressure 126/68 126/68 130/73 Pulse Oximetry 97 97 97 Oxygen Delivery 05/13/25 15:05 05/13/25 22:00 05/14/25 06:00 Temperature 97.7 F 98.0 F Pulse Rate 74 73 Respiratory Rate 18 18 Blood Pressure 106/62 100/52 L Pulse Oximetry 94 95 Oxygen Delivery Room Air Intake/Output Intake/Output: Intake & Output 05/11/25 05/12/25 05/13/25 05/14/25 23:59 23:59 23:59 23:59 Intake Total 2450 1010 Output Total 550 Balance 2450 460 Meds/Results Medications: Active Medications Generic Name Dose Route Start Last Admin Trade Name Freq PRN Reason Stop Dose Admin Apixaban 2.5 mg 05/14/25 09:00 05/14/25 08:51 Apixaban 2.5 Mg Tablet PO 2.5 mg Q12HR ARNAV Administration Chlordiazepoxide HCl 25 mg 05/13/25 13:59 Chlordiazepoxide (*Crx) 25 Mg Capsule PO Q6H PRN Withdrawal Folic Acid 1 mg 05/14/25 09:00 05/14/25 08:51 Folic Acid 1 Mg Tablet PO 1 mg DAILY ARNAV Administration Piperacillin/Tazobactam/Dextrose 3.375 gm in 50 mls @ 100 mls/hr 05/13/25 18:00 05/14/25 05:22 Zosyn 3.375 Gm/Ns 50 Ml IVPB 100 mls/hr Q6H ARNAV Administration Vancomycin HCl 1,250 mg in 250 mls @ 166.667 mls/hr 05/14/25 19:00 Vancomycin 1,250 Mg/Ns 250 Ml IVPB Q12H ARNAV Lorazepam 2 mg 05/13/25 13:59 Lorazepam Inj (*Crx) 2 Mg/Ml Vial IV PUSH Q4H PRN CIWA 8-15 Miscellaneous Information 0 each 05/13/25 00:01 Dialyvit Ordered Weekly, Which Day Of The Week Is This Taken? XX 06/12/25 00:00 CLARIFY ARNAV Morphine Sulfate 2 mg 05/13/25 14:01 05/13/25 22:20 Morphine Sulfate (*Crx) 2 Mg/Ml Inj IV PUSH 2 mg Q4H PRN Administration Pain Rated 7-10 Non-Formulary Medication 1 tablet 05/20/25 09:00 B Complex-Vitamin C-Folic Acid [Dialyvite] PO 06/19/25 08:59 WEEKLY ARNAV Ondansetron HCl 4 mg 05/13/25 13:59 Ondansetron Inj 4 Mg/2 Ml Vial IV PUSH Q6H PRN Nausea And Vomiting Oxycodone HCl 2.5 mg 05/13/25 14:01 05/14/25 05:30 Oxycodone Hcl (*Crx) 2.5 Mg Tab Ir PO 2.5 mg Q4H PRN Administration Pain Rated 4-6 Pantoprazole Sodium 40 mg 05/14/25 09:00 05/14/25 08:51 Pantoprazole 40 Mg Tablet PO 40 mg QAM ARNAV Administration Pregabalin 100 mg 05/14/25 09:00 05/14/25 08:51 Pregabalin (*Crx) 50 Mg Capsule PO 100 mg TID ARNAV Administration Thiamine HCl 100 mg 05/14/25 09:00 05/14/25 08:51 Thiamine Hcl 100 Mg Tablet PO 100 mg QAM ARNAV Administration Radiology Results: ITS Impressions Lower Extremity CT 05/13/25 12:20 IMPRESSION: 1. Skin ulcerations at the mid to distal calf without evident abscess or soft tissue gas. 2. Periosteal reaction along the left tibial and fibular diaphyses most likely related to chronic venous stasis. Differential would include hypertrophic pulmonary osteoarthropathy although there is no evident pulmonary disease on chest CT dated 06/24/2024 Labs Labs: Laboratory Results - last 24 hr 05/13/25 05/13/25 05/13/25 11:06 11:15 11:31 WBC 9.1 RBC 5.14 Hgb 18.9 H Hct 56.4 H MCV 109.7 H MCH 36.8 H MCHC 33.5 RDW 15.3 H Plt Count 65 L MPV 9.6 Immature Gran % (Auto) 0.5 Neut % (Auto) 80.0 H Lymph % (Auto) 10.7 L [place] % (Auto) 8.2 Eos % (Auto) 0.3 Baso % (Auto) 0.3 Lymph # (Auto) 0.98 [place] # (Auto) 0.8 H Eos # (Auto) 0.0 Baso # (Auto) 0.0 Abs Immat Gran (auto) 0.05 H Absolute Neuts (auto) 7.3 H Absolute Nucleated RBC 0.000 Band Neutrophils % Nucleated RBC % 0.0 Platelet Estimate % Immature Plt Fraction 3.3 Macrocytosis Schistocytes PT 13.6 INR 1.0 APTT 24.3 VBG pH 7.449 H* VBG pCO2 40.0 L VBG pO2 < 27.0 L VBG HCO3 27.1 O2 Delivery Device Room air O2 Liters/Min Not Reportable FiO2 21 Sodium 135 L Potassium 3.7 Chloride 99 Carbon Dioxide 26 Anion Gap 10 BUN 7 L Creatinine 0.98 Estim Creat Clear Calc 74 Estimated GFR > 60 Glucose 95 POC Capillary Glucose 79 Lactic Acid 1.4 Calcium 8.8 Phosphorus 2.9 Magnesium Total Bilirubin 1.5 H AST 26 ALT 14 Alkaline Phosphatase 119 Total Protein 8.2 Albumin 4.2 Urine Color Urine Appearance Urine pH Ur Specific [place] Urine Protein Urine Glucose (UA) Urine Ketones Ur Blood (Man) Urine Nitrate Urine Bilirubin Urine Urobilinogen Leukocyte Esterase Rfl Urine RBC Urine WBC Ur Squamous Epith Cells Urine Bacteria Urine Casts 05/13/25 05/13/25 05/14/25 12:18 14:26 05:48 WBC RBC Hgb Hct MCV MCH MCHC RDW Plt Count MPV Immature Gran % (Auto) Neut % (Auto) Lymph % (Auto) [place] % (Auto) Eos % (Auto) Baso % (Auto) Lymph # (Auto) [place] # (Auto) Eos # (Auto) Baso # (Auto) Abs Immat Gran (auto) Absolute Neuts (auto) Absolute Nucleated RBC Band Neutrophils % Nucleated RBC % Platelet Estimate % Immature Plt Fraction Macrocytosis Schistocytes PT INR APTT VBG pH VBG pCO2 VBG pO2 VBG HCO3 O2 Delivery Device O2 Liters/Min FiO2 Sodium 130 L Potassium 3.8 Chloride 100 Carbon Dioxide 23 Anion Gap 7 BUN 4 L Creatinine 0.95 Estim Creat Clear Calc 82 Estimated GFR > 60 Glucose 95 POC Capillary Glucose 89 Lactic Acid Calcium 7.5 L Phosphorus Magnesium 2.2 Total Bilirubin 1.2 AST 27 ALT 8 Alkaline Phosphatase 64 Total Protein 5.9 L Albumin 2.8 L Urine Color Yellow Urine Appearance Clear Urine pH 7.0 Ur Specific [place] 1.036 H Urine Protein 1+ H Urine Glucose (UA) Negative Urine Ketones Negative Ur Blood (Man) Negative Urine Nitrate Negative Urine Bilirubin Negative Urine Urobilinogen 1.0 Leukocyte Esterase Rfl Negative Urine RBC 0-2 Urine WBC 0-5 Ur Squamous Epith Cells None seen Urine Bacteria None seen Urine Casts 0-2 05/14/25 07:37 WBC 8.3 RBC 4.11 L Hgb 15.2 D Hct 45.8 MCV 111.4 H MCH 37.0 H MCHC 33.2 RDW 15.2 H Plt Count 84 L MPV 10.0 Immature Gran % (Auto) 0.5 Neut % (Auto) 74.8 H Lymph % (Auto) 13.5 L [place] % (Auto) 9.7 H Eos % (Auto) 1.0 Baso % (Auto) 0.5 Lymph # (Auto) 1.12 [place] # (Auto) 0.8 H Eos # (Auto) 0.1 Baso # (Auto) 0.0 Abs Immat Gran (auto) 0.04 H Absolute Neuts (auto) 6.2 Absolute Nucleated RBC 0.000 Band Neutrophils % Not Reportable Nucleated RBC % 0.0 Platelet Estimate Decreased % Immature Plt Fraction 4.5 Macrocytosis 1+ Schistocytes None seen PT INR APTT VBG pH VBG pCO2 VBG pO2 VBG HCO3 O2 Delivery Device O2 Liters/Min FiO2 Sodium Potassium Chloride Carbon Dioxide Anion Gap BUN Creatinine Estim Creat Clear Calc Estimated GFR Glucose POC Capillary Glucose Lactic Acid Calcium Phosphorus Magnesium Total Bilirubin AST ALT Alkaline Phosphatase Total Protein Albumin Urine Color Urine Appearance Urine pH Ur Specific [place] Urine Protein Urine Glucose (UA) Urine Ketones Ur Blood (Man) Urine Nitrate Urine Bilirubin Urine Urobilinogen Leukocyte Esterase Rfl Urine RBC Urine WBC Ur Squamous Epith Cells Urine Bacteria Urine Casts Quality VTE Prophylaxis VTE prophylaxis: pharmacologic ordered
[2025-05-14] MEDS: WATER FOR IRRIGATION, STERILE 1,000 ML BOTTLE 1000 ML (11:07)
[2025-05-14 11:36] LABS: Glucose Point of Care 88 mg/dl (65-105)
[2025-05-14 12:00] VITALS: BP 100/52
--- NOTE | 2025-05-14 13:33 | P.CONS_ITS ---
Assessment and Plan Assessment and plan (1) Venous stasis dermatitis of left lower extremity: Code(s): I87.2 - Venous insufficiency (chronic) (peripheral) Status: Acute Assessment and Plan: Patient has extensive venous stasis changes of the left lower extremity from the knee distal to the ankle. It appears to be circumferential. There was a lot of dry skin scale noted that will need to be softened and removed. Hopefully the underlying skin would be healthy enough to be preserved. The wound on the left lower extremity was infested with maggots. The maggots have now been removed. Apply Silvadene cream to the wounds for now. Have wound care nurses seen evaluate the patient tomorrow. Will need to try to find some way to remove all the scale from the skin and then fully evaluate the underlying tissue. Patient will need extensive teaching on skin care maintenance. For now there is no obvious need for amputation. The patient had a positive blood culture. We will notify the hospitalist and defer treatment with IV antibiotics to the hospitalist service. (2) Infestation by maggots: Code(s): B87.9 - Myiasis, unspecified Status: Acute Assessment and Plan: All the maggots have been removed grossly. Will monitor the wound for any further signs of infestation. HPI Data of Consult Date/Time: 05/14/25 13:33 Requesting Physician: Tanner Hannon MD Primary Care Provider: Eliane Alvarado MD Consult Narrative Reason for consult: Right lower extremity open wound with maggot infestation Narrative: Danilo Esposito is a 54 year old male admitted through the emergency room with a chronic wound of his left lower extremity with maggot infestation. Patient is a poor historian but states that he has had wound for a few months. He has had chronic issues with venous stasis changes in the left lower extremity he states for about a year. He was seen in the Dermatology Clinic at [facility] in the past and was given some sort cream to apply but that did not seem to help. He is not had any follow-up in Dermatology Clinic since that time. He was admitted to the hospital to the hospitalist service and nurses on the floor here have removed all the maggots that are visible. Blood culture was positive. He has been started on Rocephin for IV antibiotics. White blood cell count is normal. Review of Systems 2 Review of Systems: The remainder of the review of systems to include constitutional, HEENT, cardiovascular, respiratory, GI, , integumentary, musculoskeletal, endocrine, immunologic, hematologic, psychiatric, and neurologic are all negative except for which is mentioned above in the HPI. FOR[facility]LY [facility] Past Medical History Medical History MVP (mitral valve prolapse) Peripheral neuropathy Adenomatous colon polyp Vitamin B12 deficiency Vitamin D deficiency Venous thromboembolism 01/15 and 08/15 - PE 08/15 - right lower extremity DVT Recurrent pulmonary embolism 01/15 and 08/15 Pancreatitis Erythrocytosis History of colon polyps Venous stasis dermatitis of left lower extremity Fatty liver Gastritis ETOH abuse Stuttering Tobacco abuse Pulmonary embolism and infarction (~12/2022) Hypertension Surgical History Surgical History History of left inguinal hernia repair (~2001) History of right inguinal hernia repair (~1996) Social History Social History Smoking packs per day: 1 Smoking cigarettes per day: 20.0 Years smoked: 35 Smoking pack-years: 35.00 Smoking status: Current every day smoker Alcohol intake: former Drinks per week: 30 Alcohol use details: Quit drinking 06/2024. Used to drink fireball and beer daily Substance use: never Substance use type: former substance user and marijuana Do You Feel Safe in your Home?: Yes Lack of Transportation: No Lack of Food: Never True Current Housing: I Have Housing Concerned About Future Housing: No Difficulty Paying Gas/Electric Bills: No Difficulty Paying for Meds: No Currently Unemployed: No Education: High School Diploma/GED Difficulty w/ Childcare or Family Care: No Living arrangements: with family Occupation/Education: occupation Additional occupation/education comments: [employer] Gender identity (if verbalized by the patient): Male Spiritual care concerns: No Meds Home Medications and Allergies Home Medications ?Medication ?Instructions ?Recorded ?Confirmed ?Type folic acid 1 mg tablet 1 mg PO DAILY 08/26/23 05/13/25 History multivitamin (Daily Multi-Vitamin 1 tablet PO DAILY #30 tabs 06/26/24 05/13/25 Rx tablet) apixaban 2.5 mg tablet (Eliquis) 2.5 mg PO BID 12/11/24 06/21/25 History pregabalin 100 mg capsule (Lyrica) 100 mg PO TID #270 caps 11/02/24 05/13/25 Rx vitamin B complex-vitamin C 100 1 tablet PO WEEKLY 12/13/24 05/13/25 History mg-folic acid 1 mg tablet (Dialyvite) omeprazole 20 mg capsule,delayed See Rx Instructions .Route 02/27/25 05/13/25 Rx release .COMPLEX #90 caps Allergies Allergy/AdvReac Type Severity Reaction Status Date / Time acetaminophen Allergy Mild SHAKING Verified 05/13/25 09:03 dextromethorphan Allergy Mild SHAKING Verified 05/13/25 09:03 doxylamine Allergy Mild SHAKING Verified 05/13/25 09:03 pseudoephedrine Allergy Mild SHAKING Verified 05/13/25 09:03 Vital Signs Vital Signs - 24 hr 05/13/25 13:53 05/13/25 14:16 05/13/25 14:30 Temperature Pulse Rate 84 80 77 Respiratory Rate 16 18 14 Blood Pressure 126/69 126/68 126/68 Pulse Oximetry 97 97 97 Oxygen Delivery 05/13/25 14:54 05/13/25 15:05 05/13/25 22:00 Temperature 36.5 C Pulse Rate 84 74 Respiratory Rate 16 18 Blood Pressure 130/73 106/62 Pulse Oximetry 97 94 Oxygen Delivery Room Air 05/14/25 06:00 05/14/25 08:00 05/14/25 08:00 Temperature 36.7 C Pulse Rate 73 Respiratory Rate 18 Blood Pressure 100/52 L 100/52 L Pulse Oximetry 95 Oxygen Delivery Room Air 05/14/25 12:00 Temperature Pulse Rate Respiratory Rate Blood Pressure 100/52 L Pulse Oximetry Oxygen Delivery Exam 2 Const: General: comfortable and no acute distress HENMT: Ears: TM's normal bilaterally Face/Nose/Sinus: Normal nares present Mouth: Yes moist mucous membranes Eyes: General: appearance normal, both eyes and all related structures S clera: sclerae normal Pupils: Equal, round and reactive pupils present E OM: EOMs intact bilaterally Neck: Neck: supple and no JVD Resp: Effort & Inspection: normal respiratory effort Auscultation: clear to auscultation bilaterally Cardio: Rate: regular rate Rhythm: regular rhythm GI: GI Palp: Yes Soft to palpation, No Firmness to palpation present (GI), No Tenderness to palpation present (GI), No Guarding due to palpation present (GI) and No Hernia present Skin: Rashes: rashes noted Other: Extensive left lower extremity venous stasis changes circumferentially from the knee distally to the ankle. There is a 6x4cm irregularly shaped open wound all the way through the dermis to the underlying subcutaneous fat on the distal calf region. Currently there are no maggots in the wound but by nursing care greater than 100 back as had been removed and disposed of. Extensive dry flaky skin skin is noted. He is able to move all his toes in his left foot. The right lower extremity has some mild venous stasis changes without cellulitis. Neuro: General: gait normal Speech: normal speech Motor exam (neuro): 5 /5 motor strength present throughout Sensory Exam: normal sensation Extrem: General: normal exam except as noted Psych: Mental Status: mental status grossly normal Affect: normal affect Results Labs 05/14/25 07:37 05/14/25 05:48 Labs: Short CBC 05/14/25 Range/Units 07:37 WBC 8.3 (4.5-10.0) K/mm3 Hgb 15.2 D (14.0-18.0) g/dL Hct 45.8 (42.0-52.0) % Plt Count 84 L (150-375) k/mm3 BMP 05/14/25 05:48 Sodium 130 L Potassium 3.8 Chloride 100 Carbon Dioxide 23 BUN 4 L Creatinine 0.95 Glucose 95 Calcium 7.5 L Liver Function 05/14/25 Range/Units 05:48 Total Bilirubin 1.2 (0.2-1.3) mg/dL AST 27 (17-59) U/L ALT 8 (6-50) U/L Alkaline Phosphatase 64 (38-126) U/L Albumin 2.8 L (3.5-5.1) g/dL
[2025-05-14 14:00] VITALS: BP 127/65; PULSE 62; RESP 18; TEMP 36.4; O2SAT 98
[2025-05-14 16:00] VITALS: BP 127/65
[2025-05-14] MEDS: CHLORHEXIDINE GLUCONATE 4% SOL 120 ML BTL 1 APPLIC TOPICAL (16:18)
[2025-05-14] MEDS: SILVER SULFADIAZINE 1% CR 400 GM JAR (*BKC) 1 APPLIC TOPICAL (16:18)
[2025-05-14 16:53] LABS: Glucose Point of Care 119 mg/dl (65-105)
[2025-05-14 20:52] VITALS: BP 120/88; PULSE 64; RESP 20; TEMP 36.4; O2SAT 95
[2025-05-15] MEDS: PIPERACILLN/TAZ 3.375GM/NS50ML 3.375 GM/50 ML BAG IVPB ×4 (00:01→17:26)
[2025-05-15 05:58] LABS: Basophils Absolute Auto 0.1 K/mm3 (0.0-0.1); Basophils Percent Auto 0.7 % (0.2-1.2); Eosinophils Absolute Auto 0.2 K/mm3 (0-0.3); Hematocrit 45.1 % (42.0-52.0); Hemoglobin 15.1 g/dL (14.0-18.0); Immature Granulocyte Absolute 0.05 K/mm3 (0.00-0.031); Immature Granulocyte Percent A 0.7 % (0-0.5); Immature Platelet Fraction Pct 4.3 % (0.9-11.2); Lymphocytes Absolute Auto 1.14 K/mm3 (0.9-3.2); Lymphocytes Percent Auto 16.9 % (18.3-44.2); Mean Corpuscular HGB Conc 33.5 g/dl (32-36); Mean Corpuscular Hemoglobin 37.3 pg (26-34); Mean Corpuscular Volume 111.4 fl (80-100); Monocytes Absolute Auto 0.8 K/mm3 (0.1-0.6); Monocytes Percent Auto 11.4 % (2.6-8.5); Neutrophils Absolute Auto 4.5 K/mm3 (1.3-6.7); Neutrophils Percent Auto 67.3 % (45.5-73.1); Platelet Count Result 99 k/mm3 (150-375); Red Blood Count 4.05 M/mm3 (4.6-6.20); Red Cell Distribution Width 15.1 % (11.5-14.5); White Blood Count 6.8 K/mm3 (4.5-10.0)
[2025-05-15 06:00] VITALS: BP 104/65; PULSE 68; RESP 20; TEMP 36.3; O2SAT 97
[2025-05-15 06:19] LABS: Alanine Aminotransferase 9 U/L (6-50); Alkaline Phosphatase 64 U/L (38-126); Anion Gap 4 mmol/L (4-12); Aspartate Amino Transferase 22 U/L (17-59); Bilirubin,Total 0.8 mg/dL (0.2-1.3); Blood Urea Nitrogen 8 mg/dL (9-20); Calcium 8.6 mg/dL (8.4-10.2); Carbon Dioxide 27 mmol/L (22-30); Chloride 105 mmol/L (98-107); Estimated CRCL calculation 76 ml/min; Estimated Glomerular Filt Rate > 60; Glucose 105 mg/dL (65-110); Magnesium 2.2 mg/dL (1.6-2.3); Potassium 4.1 mmol/L (3.4-5.0); Sodium 136 mmol/L (137-145); Total Protein 6.2 g/dL (6.3-8.2)
[2025-05-15] MEDS: VANCOMYCIN 1,000 MG/NS 250 ML 1,000 MG/250 ML BAG 250 MG IVPB (08:02)
[2025-05-15] MEDS: APIXABAN 2.5 MG TABLET PO ×2 (08:07→20:38)
[2025-05-15] MEDS: THIAMINE HCL 100 MG TABLET PO (08:07)
[2025-05-15] MEDS: FOLIC ACID 1 MG TABLET PO (08:07)
[2025-05-15] MEDS: VITAMIN B CMPLX/VIT C/FOLIC AC 1 CAPSULE 1 CAP PO (08:07)
[2025-05-15] MEDS: PREGABALIN (*CRX) 50 MG CAPSULE 100 MG PO ×3 (08:07→17:25)
[2025-05-15] MEDS: PANTOPRAZOLE 40 MG TABLET PO (08:07)
[2025-05-15] MEDS: SILVER SULFADIAZINE 1% CR 400 GM JAR (*BKC) 1 APPLIC TOPICAL (08:08)
[2025-05-15 08:22] VITALS: O2SAT 98
[2025-05-15] MEDS: oxyCODONE HCL (*CRX) 2.5 MG TAB IR PO (09:52)
[2025-05-15 11:42] LABS: Glucose Point of Care 99 mg/dl (65-105)
--- NOTE | 2025-05-15 11:49 | P.PNGS_ITS ---
Progress Note: A&P Assessment and Plan (1) Venous stasis dermatitis of left lower extremity: Code(s): I87.2 - Venous insufficiency (chronic) (peripheral) Status: Acute Assessment and Plan: * Patient has extensive venous stasis changes of the left lower extremity from the knee to the ankle. It appears to be circumferential. Wound care was consulted today and did extensive cleaning of the wounds and his legs removing the dry skin and scaling. There are 3 wounds on the lower leg that appear stable now that they have been thoroughly cleaned. There are no signs of infection or surrounding cellulitis. No indication for any surgical intervention at this time. Would recommend to continue local wound care with Silvadene dressing changes. Continue IV antibiotics per the Hospitalist service as he presented with positive blood cultures. This is not necessary for his wounds. From a surgical standpoint, he could discharge with local wound care and home health tomorrow if this is set up by care coordination. W ill continue to follow. (2) Infestation by maggots: Code(s): B87.9 - Myiasis, unspecified Status: Acute Assessment and Plan: * See plan above. Plan I have discussed the patient's case and plan of care with Dr. Ortiz. Subjective Subjective Date/Time Seen: 05/15/25 11:49 Interval history: No acute issues overnight. No specific complaints today. His sister is at the bedside. Wound care he cleaned the patient's wounds earlier this morning prior to my arrival. Exam Skin: Other: Extensive left lower extremity venous stasis changes circumferentially from the knee distally to the ankle. There is a 6x4cm irregularly shaped open wound with 100% red/pink wound bed, no necrotic tissue or purulent drainage. There is another superficial open wound to the left lateral leg measuring 4 x 2 x 0.3 cm with 100% pink wound bed, no necrotic tissue or purulent drainage. There is a smaller 2 x 2 x 0.3 cm open wound on the posterior aspect of the lower leg with 100% pink wound bed, no purulent drainage or necrotic tissue. No surrounding erythema or cellulitic changes of the left lower extremity. The right lower extremity has some mild venous stasis changes without cellulitis. Objective Data Vital Signs Vital Signs: Vital Signs - 24 hr 05/14/25 12:00 05/14/25 14:00 05/14/25 16:00 Temperature 97.6 F Pulse Rate 62 Respiratory Rate 18 Blood Pressure 100/52 L 127/65 127/65 Pulse Oximetry 98 Oxygen Delivery 05/14/25 20:52 05/15/25 06:00 05/15/25 08:00 Temperature 97.6 F 97.4 F L Pulse Rate 64 68 Respiratory Rate 20 20 Blood Pressure 120/88 104/65 Pulse Oximetry 95 97 Oxygen Delivery Room Air 05/15/25 08:22 Temperature Pulse Rate Respiratory Rate Blood Pressure Pulse Oximetry 98 Oxygen Delivery Room Air Intake/Output Intake/Output: Intake & Output 05/12/25 05/13/25 05/14/25 05/15/25 23:59 23:59 23:59 23:59 Intake Total 2450 2354 530 Output Total 550 200 Balance 2450 1804 330 Meds/Results Medications: Active Medications Generic Name Dose Route Start Last Admin Trade Name Freq PRN Reason Stop Dose Admin Apixaban 2.5 mg 05/14/25 09:00 05/15/25 08:07 Apixaban 2.5 Mg Tablet PO 2.5 mg Q12HR ARNAV Administration Chlordiazepoxide HCl 25 mg 05/13/25 13:59 Chlordiazepoxide (*Crx) 25 Mg Capsule PO Q6H PRN Withdrawal Folic Acid 1 mg 05/14/25 09:00 05/15/25 08:07 Folic Acid 1 Mg Tablet PO 1 mg DAILY ARNAV Administration Piperacillin/Tazobactam/Dextrose 3.375 gm in 50 mls @ 100 mls/hr 05/13/25 18:00 05/15/25 05:38 Zosyn 3.375 Gm/Ns 50 Ml IVPB 100 mls/hr Q6H ARNAV Administration Vancomycin HCl 1,000 mg in 250 mls @ 250 mls/hr 05/15/25 07:00 05/15/25 08:02 Vancomycin 1,000 Mg/Ns 250 Ml IVPB 250 mls/hr Q12H ARNAV Administration Lorazepam 2 mg 05/13/25 13:59 Lorazepam Inj (*Crx) 2 Mg/Ml Vial IV PUSH Q4H PRN CIWA 8-15 Morphine Sulfate 2 mg 05/13/25 14:01 05/13/25 22:20 Morphine Sulfate (*Crx) 2 Mg/Ml Inj IV PUSH 2 mg Q4H PRN Administration Pain Rated 7-10 Ondansetron HCl 4 mg 05/13/25 13:59 Ondansetron Inj 4 Mg/2 Ml Vial IV PUSH Q6H PRN Nausea And Vomiting Oxycodone HCl 2.5 mg 05/13/25 14:01 05/15/25 09:52 Oxycodone Hcl (*Crx) 2.5 Mg Tab Ir PO 2.5 mg Q4H PRN Administration Pain Rated 4-6 Pantoprazole Sodium 40 mg 05/14/25 09:00 05/15/25 08:07 Pantoprazole 40 Mg Tablet PO 40 mg QAM ARNAV Administration Pregabalin 100 mg 05/14/25 09:00 05/15/25 08:07 Pregabalin (*Crx) 50 Mg Capsule PO 100 mg TID ARNAV Administration Silver Sulfadiazine 1 applic 05/14/25 14:00 05/15/25 08:08 Silver Sulfadiazine 1% Cr 400 Gm Jar (*Bkc) TOPICAL 1 applic DAILY ARNAV Administration Thiamine HCl 100 mg 05/14/25 09:00 05/15/25 08:07 Thiamine Hcl 100 Mg Tablet PO 100 mg QAM ARNAV Administration Vitamin B Complex/Folic Acid 1 cap 05/15/25 09:00 05/15/25 08:07 Vitamin B Cmplx/Vit C/Folic Ac 1 Capsule PO 1 cap WEEKLY ARNAV Administration Radiology Results: ITS Impressions Lower Extremity CT 05/13/25 12:20 IMPRESSION: 1. Skin ulcerations at the mid to distal calf without evident abscess or soft tissue gas. 2. Periosteal reaction along the left tibial and fibular diaphyses most likely related to chronic venous stasis. Differential would include hypertrophic pulmonary osteoarthropathy although there is no evident pulmonary disease on chest CT dated 06/24/2024 Labs Labs: Laboratory Results - last 24 hr 05/14/25 05/15/25 05/15/25 16:50 05:48 11:39 WBC 6.8 RBC 4.05 L Hgb 15.1 Hct 45.1 MCV 111.4 H MCH 37.3 H MCHC 33.5 RDW 15.1 H Plt Count 99 L MPV 10.0 Immature Gran % (Auto) 0.7 H Neut % (Auto) 67.3 Lymph % (Auto) 16.9 L [place] % (Auto) 11.4 H Eos % (Auto) 3.0 Baso % (Auto) 0.7 Lymph # (Auto) 1.14 [place] # (Auto) 0.8 H Eos # (Auto) 0.2 Baso # (Auto) 0.1 Abs Immat Gran (auto) 0.05 H Absolute Neuts (auto) 4.5 Absolute Nucleated RBC 0.000 Nucleated RBC % 0.0 % Immature Plt Fraction 4.3 Sodium 136 L Potassium 4.1 Chloride 105 Carbon Dioxide 27 Anion Gap 4 BUN 8 L Creatinine 1.03 Estim Creat Clear Calc 76 Estimated GFR > 60 Glucose 105 POC Capillary Glucose 119 H 99 Calcium 8.6 Magnesium 2.2 Total Bilirubin 0.8 AST 22 ALT 9 Alkaline Phosphatase 64 Total Protein 6.2 L Albumin 3.0 L Vancomycin Trough 17.0
--- NOTE | 2025-05-15 12:57 | PM.IMPN ---
Progress Note: A&P Assessment and Plan (1) Skin ulcer of left lower leg: Qualifiers: Non-pressure ulcer stage: unspecified non-pressure ulcer stage Qualified Code(s): L97.929 - Non-pressure chronic ulcer of unspecified part of left lower leg with unspecified severity Code(s): L97.929 - Non-pressure chronic ulcer of unspecified part of left lower leg with unspecified severity Status: Acute Assessment and Plan: - CT LLE, 05/13: 1. Skin ulcerations at the mid to distal calf without evident abscess or soft tissue gas. 2. Periosteal reaction along the left tibial and fibular diaphyses most likely related to chronic venous stasis. Differential would include hypertrophic pulmonary osteoarthropathy although there is no evident pulmonary disease on chest CT dated 06/24/2024 - Wound RN consulted - DC Vanc and Continue Zosyn on 05/13 - General surgery consulted for debridement (2) ETOH abuse: Code(s): F10.10 - Alcohol abuse, uncomplicated Status: Chronic Assessment and Plan: - cessation of daily alcohol use years ago, now drinks NA beer. However upon review, hematology reported patient was still drinking. C1 place. on [facility] protocol - IV fluids: 3L in ED, will give banana bag x1 - start daily thiamine and folic acid - antiemetics PRN (3) Bacteremia: Code(s): R78.81 - Bacteremia Status: Acute Assessment and Plan: Source from wound Blood culture from 0 05/13 shows Gram-negative bacilli Continue Zosyn Monitor leukocytosis Monitor for temperature and vital Plan Diet: Heart healthy DVT Prophylaxis: Eliquis Code Status: Full code Subjective Date/time seen: 05/15/25 12:57 Interval history: Evaluated the patient along with her sister by side. Patient lives with his parents. Surgery and Wound Care on board. Blood culture growing g negative bacilli. Discontinued vancomycin. Asper nursing no maggots from wound today. Review of Systems Review of Systems: All systems reviewed & are unremarkable except as noted in HPI and below Exam Const: General: comfortable and no acute distress Other: , male, nontoxic appearance HENMT: Face/Nose/Sinus: Normal nares present Mouth: Yes moist mucous membranes Eyes: General: appearance normal, both eyes and all related structures Sclera: sclerae normal Pupils: Equal, round and reactive pupils present EOM: EOMs intact bilaterally Resp: Effort & Inspection: normal respiratory effort Auscultation: clear to auscultation bilaterally Cardio: Rate: regular rate Other: S1-S2 present without murmur, rub, ectopy GI: Other: Abdomen soft, nondistended, nontender. Normoactive bowel sounds in all quadrants. Skin: Other: Lipodermatosclerosis of BLE. No open wounds to the RLE. Multiple open wounds to the RLE with large volume of live maggots. Skin appears dry with some necrotic changes, but no signs of infection including erythema or purulent drainage. Neurovascularly intact. Neuro: Cranial nerves: Yes Equal, round and reactive pupils present Speech: normal speech Motor exam (neuro): 5/5 motor strength present throughout Sensory Exam: normal sensation Other: A&O x4 Extrem: General: normal exam except as noted (See skin exam) Psych: Mental Status: mental status grossly normal Affect: normal affect Other: Good insight judgment, pleasant Objective Data Vital Signs Vital Signs: Vital Signs - 24 hr 05/14/25 14:00 05/14/25 16:00 05/14/25 20:52 Temperature 97.6 F 97.6 F Pulse Rate 62 64 Respiratory Rate 18 20 Blood Pressure 127/65 127/65 120/88 Pulse Oximetry 98 95 Oxygen Delivery 05/15/25 06:00 05/15/25 08:00 05/15/25 08:22 Temperature 97.4 F L Pulse Rate 68 Respiratory Rate 20 Blood Pressure 104/65 Pulse Oximetry 97 98 Oxygen Delivery Room Air Room Air Intake/Output Intake/Output: Intake & Output 05/12/25 05/13/25 05/14/25 05/15/25 23:59 23:59 23:59 23:59 Intake Total 2450 2354 530 Output Total 550 200 Balance 2450 1804 330 Meds/Results Medications: Active Medications Generic Name Dose Route Start Last Admin Trade Name Freq PRN Reason Stop Dose Admin Apixaban 2.5 mg 05/14/25 09:00 05/15/25 08:07 Apixaban 2.5 Mg Tablet PO 2.5 mg Q12HR ARNAV Administration Chlordiazepoxide HCl 25 mg 05/13/25 13:59 Chlordiazepoxide (*Crx) 25 Mg Capsule PO Q6H PRN Withdrawal Folic Acid 1 mg 05/14/25 09:00 05/15/25 08:07 Folic Acid 1 Mg Tablet PO 1 mg DAILY ARNAV Administration Piperacillin/Tazobactam/Dextrose 3.375 gm in 50 mls @ 100 mls/hr 05/13/25 18:00 05/15/25 05:38 Zosyn 3.375 Gm/Ns 50 Ml IVPB 100 mls/hr Q6H ARNAV Administration Lorazepam 2 mg 05/13/25 13:59 Lorazepam Inj (*Crx) 2 Mg/Ml Vial IV PUSH Q4H PRN CIWA 8-15 Morphine Sulfate 2 mg 05/13/25 14:01 05/13/25 22:20 Morphine Sulfate (*Crx) 2 Mg/Ml Inj IV PUSH 2 mg Q4H PRN Administration Pain Rated 7-10 Ondansetron HCl 4 mg 05/13/25 13:59 Ondansetron Inj 4 Mg/2 Ml Vial IV PUSH Q6H PRN Nausea And Vomiting Oxycodone HCl 2.5 mg 05/13/25 14:01 05/15/25 09:52 Oxycodone Hcl (*Crx) 2.5 Mg Tab Ir PO 2.5 mg Q4H PRN Administration Pain Rated 4-6 Pantoprazole Sodium 40 mg 05/14/25 09:00 05/15/25 08:07 Pantoprazole 40 Mg Tablet PO 40 mg QAM ARNAV Administration Pregabalin 100 mg 05/14/25 09:00 05/15/25 08:07 Pregabalin (*Crx) 50 Mg Capsule PO 100 mg TID ARNAV Administration Silver Sulfadiazine 1 applic 05/14/25 14:00 05/15/25 08:08 Silver Sulfadiazine 1% Cr 400 Gm Jar (*Bkc) TOPICAL 1 applic DAILY ARNAV Administration Thiamine HCl 100 mg 05/14/25 09:00 05/15/25 08:07 Thiamine Hcl 100 Mg Tablet PO 100 mg QAM ARNAV Administration Vitamin B Complex/Folic Acid 1 cap 05/15/25 09:00 05/15/25 08:07 Vitamin B Cmplx/Vit C/Folic Ac 1 Capsule PO 1 cap WEEKLY ARNAV Administration Radiology Results: ITS Impressions Lower Extremity CT 05/13/25 12:20 IMPRESSION: 1. Skin ulcerations at the mid to distal calf without evident abscess or soft tissue gas. 2. Periosteal reaction along the left tibial and fibular diaphyses most likely related to chronic venous stasis. Differential would include hypertrophic pulmonary osteoarthropathy although there is no evident pulmonary disease on chest CT dated 06/24/2024 Labs Labs: Laboratory Results - last 24 hr 05/14/25 05/15/25 05/15/25 16:50 05:48 11:39 WBC 6.8 RBC 4.05 L Hgb 15.1 Hct 45.1 MCV 111.4 H MCH 37.3 H MCHC 33.5 RDW 15.1 H Plt Count 99 L MPV 10.0 Immature Gran % (Auto) 0.7 H Neut % (Auto) 67.3 Lymph % (Auto) 16.9 L [place] % (Auto) 11.4 H Eos % (Auto) 3.0 Baso % (Auto) 0.7 Lymph # (Auto) 1.14 [place] # (Auto) 0.8 H Eos # (Auto) 0.2 Baso # (Auto) 0.1 Abs Immat Gran (auto) 0.05 H Absolute Neuts (auto) 4.5 Absolute Nucleated RBC 0.000 Nucleated RBC % 0.0 % Immature Plt Fraction 4.3 Sodium 136 L Potassium 4.1 Chloride 105 Carbon Dioxide 27 Anion Gap 4 BUN 8 L Creatinine 1.03 Estim Creat Clear Calc 76 Estimated GFR > 60 Glucose 105 POC Capillary Glucose 119 H 99 Calcium 8.6 Magnesium 2.2 Total Bilirubin 0.8 AST 22 ALT 9 Alkaline Phosphatase 64 Total Protein 6.2 L Albumin 3.0 L Vancomycin Trough 17.0 Quality VTE Prophylaxis VTE prophylaxis: pharmacologic ordered Hospitalist MIPS Advance Care Plan I have confirmed that the patient's Advanced Care Plan is present, code status is documented, or surrogate decision maker is listed in patient medical record.: Yes Medication Reconciliation I have utilized all available resources to obtain, update and review the patients current medications (includes all prescriptions, OTC, herbals, cannabis, and nutritional supplements).: Yes
[2025-05-15 14:00] VITALS: BP 127/68; PULSE 66; RESP 18; TEMP 36.1; O2SAT 97
[2025-05-15 17:54] LABS: Glucose Point of Care 85 mg/dl (65-105)
[2025-05-15 20:35] VITALS: BP 104/58; PULSE 58; RESP 18; TEMP 36.1; O2SAT 95
[2025-05-15 21:07] VITALS: PULSE 71; RESP 20; O2SAT 95
[2025-05-16 00:44] LABS: Glucose Point of Care 105 mg/dl (65-105)
[2025-05-16] MEDS: PIPERACILLN/TAZ 3.375GM/NS50ML 3.375 GM/50 ML BAG IVPB ×5 (01:23→23:54)
[2025-05-16 04:25] VITALS: BP 115/65; PULSE 56; RESP 18; TEMP 35.7; O2SAT 93
[2025-05-16 06:26] LABS: Hematocrit 46.9 % (42.0-52.0); Hemoglobin 15.4 g/dL (14.0-18.0); Mean Corpuscular HGB Conc 32.8 g/dl (32-36); Mean Corpuscular Hemoglobin 36.3 pg (26-34); Mean Corpuscular Volume 110.6 fl (80-100); Platelet Count Result 107 k/mm3 (150-375); Red Blood Count 4.24 M/mm3 (4.6-6.20); Red Cell Distribution Width 14.9 % (11.5-14.5); White Blood Count 6.2 K/mm3 (4.5-10.0)
[2025-05-16 06:36] LABS: Alanine Aminotransferase 8 U/L (6-50); Albumin Level 3.1 g/dL (3.5-5.1); Alkaline Phosphatase 58 U/L (38-126); Anion Gap 7 mmol/L (4-12); Aspartate Amino Transferase 21 U/L (17-59); Bilirubin,Total 0.7 mg/dL (0.2-1.3); Blood Urea Nitrogen 9 mg/dL (9-20); Calcium 8.5 mg/dL (8.4-10.2); Carbon Dioxide 26 mmol/L (22-30); Chloride 102 mmol/L (98-107); Estimated CRCL calculation 72 ml/min; Estimated Glomerular Filt Rate > 60; Glucose 88 mg/dL (65-110); Potassium 3.9 mmol/L (3.4-5.0); Sodium 135 mmol/L (137-145); Total Protein 6.4 g/dL (6.3-8.2)
[2025-05-16 09:00] LABS: Glucose Point of Care 88 mg/dl (65-105)
[2025-05-16] MEDS: FOLIC ACID 1 MG TABLET PO (09:10)
[2025-05-16] MEDS: PANTOPRAZOLE 40 MG TABLET PO (09:10)
[2025-05-16] MEDS: PREGABALIN (*CRX) 50 MG CAPSULE 100 MG PO ×3 (09:10→17:19)
[2025-05-16] MEDS: APIXABAN 2.5 MG TABLET PO ×2 (09:10→20:14)
[2025-05-16] MEDS: THIAMINE HCL 100 MG TABLET PO (09:10)
[2025-05-16] MEDS: SILVER SULFADIAZINE 1% CR 400 GM JAR (*BKC) 1 APPLIC TOPICAL (09:11)
--- NOTE | 2025-05-16 12:13 | P.PNGS_ITS ---
Progress Note: A&P Assessment and Plan (1) Venous stasis dermatitis of left lower extremity: Code(s): I87.2 - Venous insufficiency (chronic) (peripheral) Status: Acute Assessment and Plan: * Patient has extensive venous stasis changes of the left lower extremity from the knee to the ankle. It appears to be circumferential. There are 3 wounds on the lower leg that appear stable now that they have been thoroughly cleaned. There are no signs of infection or surrounding cellulitis. No indication for any surgical intervention at this time. Would recommend to continue local wound care with Silvadene dressing changes. Continue IV antibiotics per the hospitalist service as he presented with positive blood cultures on 05/13. Blood cultures from today still pending. From a surgical standpoint, he could discharge with local wound care and home health today if this is set up by care coordination. Follow up in 1 week with wound care clinic. (2) Infestation by maggots: Code(s): B87.9 - Myiasis, unspecified Status: Acute Assessment and Plan: * See plan above. Plan I have discussed the patient's case and plan of care with Dr. Ortiz. Subjective Subjective Date/Time Seen: 05/16/25 12:13 Patient reports: no new complaints Interval history: Patient is feeling well. No acute events overnight. Wound dressing changed today upon visit. WBC normal. Afebrile. Exam Skin: General skin exam: rashes Rashes: rashes noted Other: Extensive left lower extremity venous stasis changes circumferentially from the knee distally to the ankle. There is a 6x4cm irregularly shaped open wound with 100% red/pink wound bed, no necrotic tissue or purulent drainage. There is another superficial open wound to the left lateral leg measuring 4 x 2 x 0.3 cm with 100% pink wound bed, no necrotic tissue or purulent drainage. There is a smaller 2 x 2 x 0.3 cm open wound on the posterior aspect of the lower leg with 100% pink wound bed, no purulent drainage or necrotic tissue. No surrounding erythema or cellulitic changes of the left lower extremity. The right lower extremity has some mild venous stasis changes without cellulitis. Objective Data Vital Signs Vital Signs: Vital Signs - 24 hr 05/15/25 14:00 05/15/25 20:35 05/15/25 21:07 Temperature 97.0 F L 97 F L Pulse Rate 66 58 L 71 Respiratory Rate 18 18 20 Blood Pressure 127/68 104/58 L Pulse Oximetry 97 95 95 Oxygen Delivery Room Air Fraction of Inspired Oxygen 05/16/25 04:25 05/16/25 08:00 Temperature 96.3 F L Pulse Rate 56 L Respiratory Rate 18 Blood Pressure 115/65 Pulse Oximetry 93 Oxygen Delivery Room Air Fraction of Inspired Oxygen Intake/Output Intake/Output: Intake & Output 05/13/25 05/14/25 05/15/25 05/16/25 23:59 23:59 23:59 23:59 Intake Total 2450 2354 1632 694 Output Total 550 675 450 Balance 2450 1804 957 244 Meds/Results Medications: Active Medications Generic Name Dose Route Start Last Admin Trade Name Freq PRN Reason Stop Dose Admin Apixaban 2.5 mg 05/14/25 09:00 05/16/25 09:10 Apixaban 2.5 Mg Tablet PO 2.5 mg Q12HR ARNAV Administration Chlordiazepoxide HCl 25 mg 05/13/25 13:59 Chlordiazepoxide (*Crx) 25 Mg Capsule PO Q6H PRN Withdrawal Folic Acid 1 mg 05/14/25 09:00 05/16/25 09:10 Folic Acid 1 Mg Tablet PO 1 mg DAILY ARNAV Administration Piperacillin/Tazobactam/Dextrose 3.375 gm in 50 mls @ 100 mls/hr 05/13/25 18:00 05/16/25 06:05 Zosyn 3.375 Gm/Ns 50 Ml IVPB 100 mls/hr Q6H ARNAV Administration Lorazepam 2 mg 05/13/25 13:59 Lorazepam Inj (*Crx) 2 Mg/Ml Vial IV PUSH Q4H PRN CIWA 8-15 Morphine Sulfate 2 mg 05/13/25 14:01 05/13/25 22:20 Morphine Sulfate (*Crx) 2 Mg/Ml Inj IV PUSH 2 mg Q4H PRN Administration Pain Rated 7-10 Ondansetron HCl 4 mg 05/13/25 13:59 Ondansetron Inj 4 Mg/2 Ml Vial IV PUSH Q6H PRN Nausea And Vomiting Oxycodone HCl 2.5 mg 05/13/25 14:01 05/15/25 09:52 Oxycodone Hcl (*Crx) 2.5 Mg Tab Ir PO 2.5 mg Q4H PRN Administration Pain Rated 4-6 Pantoprazole Sodium 40 mg 05/14/25 09:00 05/16/25 09:10 Pantoprazole 40 Mg Tablet PO 40 mg QAM ARNAV Administration Pregabalin 100 mg 05/14/25 09:00 05/16/25 09:10 Pregabalin (*Crx) 50 Mg Capsule PO 100 mg TID ARNAV Administration Silver Sulfadiazine 1 applic 05/14/25 14:00 05/16/25 09:11 Silver Sulfadiazine 1% Cr 400 Gm Jar (*Bkc) TOPICAL 1 applic DAILY ARNAV Administration Thiamine HCl 100 mg 05/14/25 09:00 05/16/25 09:10 Thiamine Hcl 100 Mg Tablet PO 100 mg QAM ARNAV Administration Vitamin B Complex/Folic Acid 1 cap 05/15/25 09:00 05/15/25 08:07 Vitamin B Cmplx/Vit C/Folic Ac 1 Capsule PO 1 cap WEEKLY ARNAV Administration Radiology Results: ITS Impressions Lower Extremity CT 05/13/25 12:20 IMPRESSION: 1. Skin ulcerations at the mid to distal calf without evident abscess or soft tissue gas. 2. Periosteal reaction along the left tibial and fibular diaphyses most likely related to chronic venous stasis. Differential would include hypertrophic pulmonary osteoarthropathy although there is no evident pulmonary disease on chest CT dated 06/24/2024 Labs Labs: Laboratory Results - last 24 hr 05/15/25 05/16/25 05/16/25 17:47 00:29 05:55 WBC 6.2 RBC 4.24 L Hgb 15.4 Hct 46.9 MCV 110.6 H MCH 36.3 H MCHC 32.8 RDW 14.9 H Plt Count 107 L MPV 10.0 Sodium 135 L Potassium 3.9 Chloride 102 Carbon Dioxide 26 Anion Gap 7 BUN 9 Creatinine 1.09 Estim Creat Clear Calc 72 Estimated GFR > 60 Glucose 88 POC Capillary Glucose 85 105 Calcium 8.5 Total Bilirubin 0.7 AST 21 ALT 8 Alkaline Phosphatase 58 Total Protein 6.4 Albumin 3.1 L 05/16/25 08:55 WBC RBC Hgb Hct MCV MCH MCHC RDW Plt Count MPV Sodium Potassium Chloride Carbon Dioxide Anion Gap BUN Creatinine Estim Creat Clear Calc Estimated GFR Glucose POC Capillary Glucose 88 Calcium Total Bilirubin AST ALT Alkaline Phosphatase Total Protein Albumin
[2025-05-16 13:09] LABS: Glucose Point of Care 85 mg/dl (65-105)
[2025-05-16 14:00] VITALS: BP 124/71; PULSE 72; RESP 16; TEMP 36.6; O2SAT 96
[2025-05-16] MEDS: NICOTINE (*PBKC) 21 MG PATCH 1 PATCH TRANSDERM (14:48)
[2025-05-16] MEDS: oxyCODONE HCL (*CRX) 2.5 MG TAB IR PO (14:49)
--- NOTE | 2025-05-16 15:19 | P.PNIM_ITS ---
Progress Note: A&P Assessment and Plan (1) Skin ulcer of left lower leg: Qualifiers: Non-pressure ulcer stage: unspecified non-pressure ulcer stage Qualified Code(s): L97.929 - Non-pressure chronic ulcer of unspecified part of left lower leg with unspecified severity Code(s): L97.929 - Non-pressure chronic ulcer of unspecified part of left lower leg with unspecified severity Status: Acute Assessment and Plan: - CT LLE, 05/13: 1. Skin ulcerations at the mid to distal calf without evident abscess or soft tissue gas. 2. Periosteal reaction along the left tibial and fibular diaphyses most likely related to chronic venous stasis. Differential would include hypertrophic pulmonary osteoarthropathy although there is no evident pulmonary disease on chest CT dated 06/24/2024 - Wound RN consulted - Continue Zosyn - General surgery recommending wound care adn no debridement needed (2) ETOH abuse: Code(s): F10.10 - Alcohol abuse, uncomplicated Status: Chronic Assessment and Plan: - cessation of daily alcohol use years ago, now drinks NA beer. However upon review, hematology reported patient was still drinking. C1 place. on [facility] protocol - IV fluids: 3L in ED, will give banana bag x1 - start daily thiamine and folic acid - antiemetics PRN (3) Bacteremia: Code(s): R78.81 - Bacteremia Status: Acute Assessment and Plan: Source from wound Blood culture from 0 05/13 shows Gram-negative bacilli awaiting speciation and sensitivity repeat culture ordered Continue Zosyn Monitor leukocytosis Monitor for temperature and vital Plan Diet: Heart healthy DVT Prophylaxis: Eliquis Code Status: Full code Subjective Date/time seen: 05/16/25 15:19 Interval history: Comfortable at bedside Review of Systems Review of Systems: All systems reviewed & are unremarkable except as noted in HPI and below Exam Const: General: comfortable and no acute distress Other: , male, nontoxic appearance HENMT: Face/Nose/Sinus: Normal nares present Mouth: Yes moist mucous membranes Eyes: General: appearance normal, both eyes and all related structures Sclera: sclerae normal Pupils: Equal, round and reactive pupils present EOM: EOMs intact bilaterally Resp: Effort & Inspection: normal respiratory effort Auscultation: clear to auscultation bilaterally Cardio: Rate: regular rate Other: S1-S2 present without murmur, rub, ectopy GI: Other: Abdomen soft, nondistended, nontender. Normoactive bowel sounds in all quadrants. Skin: Other: Lipodermatosclerosis of BLE. No open wounds to the RLE. Multiple open wounds to the RLE with large volume of live maggots. Skin appears dry with some necrotic changes, but no signs of infection including erythema or purulent drainage. Neurovascularly intact. Neuro: Cranial nerves: Yes Equal, round and reactive pupils present Speech: normal speech Motor exam (neuro): 5/5 motor strength present throughout Sensory Exam: normal sensation Other: A&O x4 Extrem: General: normal exam except as noted (See skin exam) Psych: Mental Status: mental status grossly normal Affect: normal affect Other: Good insight judgment, pleasant Objective Data Vital Signs Vital Signs: Vital Signs - 24 hr 05/15/25 20:35 05/15/25 21:07 05/16/25 04:25 Temperature 97 F L 96.3 F L Pulse Rate 58 L 71 56 L Respiratory Rate 18 20 18 Blood Pressure 104/58 L 115/65 Pulse Oximetry 95 95 93 Oxygen Delivery Room Air Fraction of Inspired Oxygen 05/16/25 08:00 05/16/25 14:00 Temperature 97.8 F Pulse Rate 72 Respiratory Rate 16 Blood Pressure 124/71 Pulse Oximetry 96 Oxygen Delivery Room Air Fraction of Inspired Oxygen Intake/Output Intake/Output: Intake & Output 05/13/25 05/14/25 05/15/25 05/16/25 23:59 23:59 23:59 23:59 Intake Total 2450 2354 1632 984 Output Total 550 675 450 Balance 2450 1804 957 534 Meds/Results Medications: Active Medications Generic Name Dose Route Start Last Admin Trade Name Freq PRN Reason Stop Dose Admin Apixaban 2.5 mg 05/14/25 09:00 05/16/25 09:10 Apixaban 2.5 Mg Tablet PO 2.5 mg Q12HR ARNAV Administration Chlordiazepoxide HCl 25 mg 05/13/25 13:59 Chlordiazepoxide (*Crx) 25 Mg Capsule PO Q6H PRN Withdrawal Folic Acid 1 mg 05/14/25 09:00 05/16/25 09:10 Folic Acid 1 Mg Tablet PO 1 mg DAILY ARNAV Administration Piperacillin/Tazobactam/Dextrose 3.375 gm in 50 mls @ 100 mls/hr 05/13/25 18:00 05/16/25 12:30 Zosyn 3.375 Gm/Ns 50 Ml IVPB 100 mls/hr Q6H ARNAV Administration Lorazepam 2 mg 05/13/25 13:59 Lorazepam Inj (*Crx) 2 Mg/Ml Vial IV PUSH Q4H PRN CIWA 8-15 Morphine Sulfate 2 mg 05/13/25 14:01 05/13/25 22:20 Morphine Sulfate (*Crx) 2 Mg/Ml Inj IV PUSH 2 mg Q4H PRN Administration Pain Rated 7-10 Nicotine 1 patch 05/16/25 14:45 05/16/25 14:48 Nicotine (*Pbkc) 21 Mg Patch TRANSDERM 1 patch DAILY ARNAV Administration Ondansetron HCl 4 mg 05/13/25 13:59 Ondansetron Inj 4 Mg/2 Ml Vial IV PUSH Q6H PRN Nausea And Vomiting Oxycodone HCl 2.5 mg 05/13/25 14:01 05/16/25 14:49 Oxycodone Hcl (*Crx) 2.5 Mg Tab Ir PO 2.5 mg Q4H PRN Administration Pain Rated 4-6 Pantoprazole Sodium 40 mg 05/14/25 09:00 05/16/25 09:10 Pantoprazole 40 Mg Tablet PO 40 mg QAM ARNAV Administration Pregabalin 100 mg 05/14/25 09:00 05/16/25 12:30 Pregabalin (*Crx) 50 Mg Capsule PO 100 mg TID ARNAV Administration Silver Sulfadiazine 1 applic 05/14/25 14:00 05/16/25 09:11 Silver Sulfadiazine 1% Cr 400 Gm Jar (*Bkc) TOPICAL 1 applic DAILY ARNAV Administration Thiamine HCl 100 mg 05/14/25 09:00 05/16/25 09:10 Thiamine Hcl 100 Mg Tablet PO 100 mg QAM ARNAV Administration Vitamin B Complex/Folic Acid 1 cap 05/15/25 09:00 05/15/25 08:07 Vitamin B Cmplx/Vit C/Folic Ac 1 Capsule PO 1 cap WEEKLY ARNAV Administration Radiology Results: ITS Impressions Lower Extremity CT 05/13/25 12:20 IMPRESSION: 1. Skin ulcerations at the mid to distal calf without evident abscess or soft tissue gas. 2. Periosteal reaction along the left tibial and fibular diaphyses most likely related to chronic venous stasis. Differential would include hypertrophic pulmonary osteoarthropathy although there is no evident pulmonary disease on chest CT dated 06/24/2024 Labs Labs: Laboratory Results - last 24 hr 05/15/25 05/16/25 05/16/25 17:47 00:29 05:55 WBC 6.2 RBC 4.24 L Hgb 15.4 Hct 46.9 MCV 110.6 H MCH 36.3 H MCHC 32.8 RDW 14.9 H Plt Count 107 L MPV 10.0 Sodium 135 L Potassium 3.9 Chloride 102 Carbon Dioxide 26 Anion Gap 7 BUN 9 Creatinine 1.09 Estim Creat Clear Calc 72 Estimated GFR > 60 Glucose 88 POC Capillary Glucose 85 105 Calcium 8.5 Total Bilirubin 0.7 AST 21 ALT 8 Alkaline Phosphatase 58 Total Protein 6.4 Albumin 3.1 L 05/16/25 05/16/25 08:55 11:44 WBC RBC Hgb Hct MCV MCH MCHC RDW Plt Count MPV Sodium Potassium Chloride Carbon Dioxide Anion Gap BUN Creatinine Estim Creat Clear Calc Estimated GFR Glucose POC Capillary Glucose 88 85 Calcium Total Bilirubin AST ALT Alkaline Phosphatase Total Protein Albumin Quality VTE Prophylaxis VTE prophylaxis: pharmacologic ordered
[2025-05-16 17:51] LABS: Glucose Point of Care 126 mg/dl (65-105)
[2025-05-16 19:42] VITALS: BP 92/55; PULSE 59; RESP 18; TEMP 35.8; O2SAT 95
[2025-05-16 23:46] LABS: Glucose Point of Care 90 mg/dl (65-105)
[2025-05-17 04:22] VITALS: BP 118/90; PULSE 54; RESP 18; TEMP 36.2; O2SAT 96
[2025-05-17] MEDS: PIPERACILLN/TAZ 3.375GM/NS50ML 3.375 GM/50 ML BAG IVPB ×3 (04:57→17:16)
[2025-05-17 06:41] LABS: Basophils Absolute Auto 0.1 K/mm3 (0.0-0.1); Basophils Percent Auto 1.2 % (0.2-1.2); Eosinophils Absolute Auto 0.2 K/mm3 (0-0.3); Eosinophils Percent Auto 3.5 % (0-4.4); Hematocrit 48.3 % (42.0-52.0); Hemoglobin 15.7 g/dL (14.0-18.0); Immature Granulocyte Absolute 0.05 K/mm3 (0.00-0.031); Lymphocytes Absolute Auto 1.22 K/mm3 (0.9-3.2); Lymphocytes Percent Auto 23.7 % (18.3-44.2); Mean Corpuscular HGB Conc 32.5 g/dl (32-36); Mean Corpuscular Hemoglobin 36.6 pg (26-34); Mean Corpuscular Volume 112.6 fl (80-100); Mean Platelet Volume 9.9 fl (7.4-10.4); Monocytes Absolute Auto 0.6 K/mm3 (0.1-0.6); Monocytes Percent Auto 12.1 % (2.6-8.5); Neutrophils Percent Auto 58.5 % (45.5-73.1); Platelet Count Result 133 k/mm3 (150-375); Red Blood Count 4.29 M/mm3 (4.6-6.20); Red Cell Distribution Width 14.8 % (11.5-14.5); White Blood Count 5.1 K/mm3 (4.5-10.0)
[2025-05-17 06:54] LABS: Alanine Aminotransferase 8 U/L (6-50); Albumin Level 3.3 g/dL (3.5-5.1); Alkaline Phosphatase 57 U/L (38-126); Anion Gap 7 mmol/L (4-12); Aspartate Amino Transferase 22 U/L (17-59); Bilirubin,Total 0.7 mg/dL (0.2-1.3); Blood Urea Nitrogen 9 mg/dL (9-20); Calcium 8.6 mg/dL (8.4-10.2); Carbon Dioxide 28 mmol/L (22-30); Chloride 102 mmol/L (98-107); Estimated CRCL calculation 72 ml/min; Estimated Glomerular Filt Rate > 60; Glucose 82 mg/dL (65-110); Magnesium 2.2 mg/dL (1.6-2.3); Potassium 3.9 mmol/L (3.4-5.0); Sodium 137 mmol/L (137-145); Total Protein 6.7 g/dL (6.3-8.2)
[2025-05-17] MEDS: THIAMINE HCL 100 MG TABLET PO (08:14)
[2025-05-17] MEDS: FOLIC ACID 1 MG TABLET PO (08:14)
[2025-05-17] MEDS: PANTOPRAZOLE 40 MG TABLET PO (08:14)
[2025-05-17] MEDS: APIXABAN 2.5 MG TABLET PO ×2 (08:14→20:04)
[2025-05-17] MEDS: PREGABALIN (*CRX) 50 MG CAPSULE 100 MG PO ×3 (08:14→17:16)
[2025-05-17] MEDS: SILVER SULFADIAZINE 1% CR 400 GM JAR (*BKC) 1 APPLIC TOPICAL (08:15)
--- NOTE | 2025-05-17 10:54 | PM.PNGS ---
Progress Note: A&P Assessment and Plan (1) Venous stasis dermatitis of left lower extremity: Code(s): I87.2 - Venous insufficiency (chronic) (peripheral) Status: Acute Assessment and Plan: Patient has extensive venous stasis changes of the left lower extremity from the knee to the ankle. It appears to be circumferential. There are 3 wounds on the lower leg that appear stable now that they have been thoroughly cleaned. There are no signs of infection or surrounding cellulitis. No indication for any surgical intervention at this time. Would recommend to continue local wound care with Silvadene dressing changes. Continue IV antibiotics per the hospitalist service, as he presented with positive blood cultures on 05/13. Blood cultures from 05/16 still pending with no growth to date. From a surgical standpoint, he could discharge with local wound care and home health today if this is set up by care coordination. Follow up in 1 week with wound care clinic. (2) Infestation by maggots: Code(s): B87.9 - Myiasis, unspecified Status: Acute Assessment and Plan: See plan above. Subjective Subjective Date/Time Seen: 05/17/25 10:54 Patient reports: no new complaints and feels better Interval history: Patient is doing well. No acute events overnight. WBC remains stable. Wound was redressed by nurse this morning prior to my arrival. Exam Skin: General skin exam: rashes Rashes: rashes noted Other: Extensive left lower extremity venous stasis changes circumferentially from the knee distally to the ankle. There is a 6x4cm irregularly shaped open wound with 100% red/pink wound bed, no necrotic tissue or purulent drainage. There is another superficial open wound to the left lateral leg measuring 4 x 2 x 0.3 cm with 100% pink wound bed, no necrotic tissue or purulent drainage. There is a smaller 2 x 2 x 0.3 cm open wound on the posterior aspect of the lower leg with 100% pink wound bed, no purulent drainage or necrotic tissue. No surrounding erythema or cellulitic changes of the left lower extremity. The right lower extremity has some mild venous stasis changes without cellulitis. Objective Data Vital Signs Vital Signs: Vital Signs - 24 hr 05/16/25 14:00 05/16/25 19:42 05/16/25 20:00 Temperature 97.8 F 96.5 F L Pulse Rate 72 59 L Respiratory Rate 16 18 Blood Pressure 124/71 92/55 L Pulse Oximetry 96 95 Oxygen Delivery Room Air 05/17/25 04:22 05/17/25 08:00 Temperature 97.1 F L Pulse Rate 54 L Respiratory Rate 18 Blood Pressure 118/90 Pulse Oximetry 96 Oxygen Delivery Room Air Intake/Output Intake/Output: Intake & Output 05/14/25 05/15/25 05/16/25 05/17/25 23:59 23:59 23:59 23:59 Intake Total 2354 1632 1924 680 Output Total 550 675 450 Balance 8472 384 2487 680 Meds/Results Medications: Active Medications Generic Name Dose Route Start Last Admin Trade Name Freq PRN Reason Stop Dose Admin Apixaban 2.5 mg 05/14/25 09:00 05/17/25 08:14 Apixaban 2.5 Mg Tablet PO 2.5 mg Q12HR ARNAV Administration Chlordiazepoxide HCl 25 mg 05/13/25 13:59 Chlordiazepoxide (*Crx) 25 Mg Capsule PO Q6H PRN Withdrawal Folic Acid 1 mg 05/14/25 09:00 05/17/25 08:14 Folic Acid 1 Mg Tablet PO 1 mg DAILY ARNAV Administration Piperacillin/Tazobactam/Dextrose 3.375 gm in 50 mls @ 100 mls/hr 05/13/25 18:00 05/17/25 04:57 Zosyn 3.375 Gm/Ns 50 Ml IVPB 100 mls/hr Q6H ARNAV Administration Lorazepam 2 mg 05/13/25 13:59 Lorazepam Inj (*Crx) 2 Mg/Ml Vial IV PUSH Q4H PRN CIWA 8-15 Morphine Sulfate 2 mg 05/13/25 14:01 05/13/25 22:20 Morphine Sulfate (*Crx) 2 Mg/Ml Inj IV PUSH 2 mg Q4H PRN Administration Pain Rated 7-10 Nicotine 1 patch 05/16/25 14:45 05/17/25 08:16 Nicotine (*Pbkc) 21 Mg Patch TRANSDERM Not Given DAILY ARNAV Ondansetron HCl 4 mg 05/13/25 13:59 Ondansetron Inj 4 Mg/2 Ml Vial IV PUSH Q6H PRN Nausea And Vomiting Oxycodone HCl 2.5 mg 05/13/25 14:01 05/16/25 14:49 Oxycodone Hcl (*Crx) 2.5 Mg Tab Ir PO 2.5 mg Q4H PRN Administration Pain Rated 4-6 Pantoprazole Sodium 40 mg 05/14/25 09:00 05/17/25 08:14 Pantoprazole 40 Mg Tablet PO 40 mg QAM ARNAV Administration Pregabalin 100 mg 05/14/25 09:00 05/17/25 08:14 Pregabalin (*Crx) 50 Mg Capsule PO 100 mg TID ARNAV Administration Silver Sulfadiazine 1 applic 05/14/25 14:00 05/17/25 08:15 Silver Sulfadiazine 1% Cr 400 Gm Jar (*Bkc) TOPICAL 1 applic DAILY ARNAV Administration Thiamine HCl 100 mg 05/14/25 09:00 05/17/25 08:14 Thiamine Hcl 100 Mg Tablet PO 100 mg QAM ARNAV Administration Vitamin B Complex/Folic Acid 1 cap 05/15/25 09:00 05/15/25 08:07 Vitamin B Cmplx/Vit C/Folic Ac 1 Capsule PO 1 cap WEEKLY ARNAV Administration Radiology Results: ITS Impressions Lower Extremity CT 05/13/25 12:20 IMPRESSION: 1. Skin ulcerations at the mid to distal calf without evident abscess or soft tissue gas. 2. Periosteal reaction along the left tibial and fibular diaphyses most likely related to chronic venous stasis. Differential would include hypertrophic pulmonary osteoarthropathy although there is no evident pulmonary disease on chest CT dated 06/24/2024 Labs Labs: Laboratory Results - last 24 hr 05/16/25 05/16/25 05/16/25 11:44 17:48 23:36 WBC RBC Hgb Hct MCV MCH MCHC RDW Plt Count MPV Immature Gran % (Auto) Neut % (Auto) Lymph % (Auto) [place] % (Auto) Eos % (Auto) Baso % (Auto) Lymph # (Auto) [place] # (Auto) Eos # (Auto) Baso # (Auto) Abs Immat Gran (auto) Absolute Neuts (auto) Absolute Nucleated RBC Nucleated RBC % Sodium Potassium Chloride Carbon Dioxide Anion Gap BUN Creatinine Estim Creat Clear Calc Estimated GFR Glucose POC Capillary Glucose 85 126 H 90 Calcium Magnesium Total Bilirubin AST ALT Alkaline Phosphatase Total Protein Albumin 05/17/25 05:25 WBC 5.1 RBC 4.29 L Hgb 15.7 Hct 48.3 MCV 112.6 H MCH 36.6 H MCHC 32.5 RDW 14.8 H Plt Count 133 L MPV 9.9 Immature Gran % (Auto) 1.0 H Neut % (Auto) 58.5 Lymph % (Auto) 23.7 [place] % (Auto) 12.1 H Eos % (Auto) 3.5 Baso % (Auto) 1.2 Lymph # (Auto) 1.22 [place] # (Auto) 0.6 Eos # (Auto) 0.2 Baso # (Auto) 0.1 Abs Immat Gran (auto) 0.05 H Absolute Neuts (auto) 3.0 Absolute Nucleated RBC 0.000 Nucleated RBC % 0.0 Sodium 137 Potassium 3.9 Chloride 102 Carbon Dioxide 28 Anion Gap 7 BUN 9 Creatinine 1.09 Estim Creat Clear Calc 72 Estimated GFR > 60 Glucose 82 POC Capillary Glucose Calcium 8.6 Magnesium 2.2 Total Bilirubin 0.7 AST 22 ALT 8 Alkaline Phosphatase 57 Total Protein 6.7 Albumin 3.3 L
[2025-05-17 12:00] LABS: Glucose Point of Care 85 mg/dl (65-105)
--- NOTE | 2025-05-17 13:28 | P.PNIM_ITS ---
Progress Note: A&P Assessment and Plan (1) Skin ulcer of left lower leg: Qualifiers: Non-pressure ulcer stage: unspecified non-pressure ulcer stage Qualified Code(s): L97.929 - Non-pressure chronic ulcer of unspecified part of left lower leg with unspecified severity Code(s): L97.929 - Non-pressure chronic ulcer of unspecified part of left lower leg with unspecified severity Status: Acute Assessment and Plan: - CT LLE, 05/13: 1. Skin ulcerations at the mid to distal calf without evident abscess or soft tissue gas. 2. Periosteal reaction along the left tibial and fibular diaphyses most likely related to chronic venous stasis. Differential would include hypertrophic pulmonary osteoarthropathy although there is no evident pulmonary disease on chest CT dated 06/24/2024 - Wound RN consulted - Continue Zosyn - General surgery recommending wound care adn no debridement needed (2) ETOH abuse: Code(s): F10.10 - Alcohol abuse, uncomplicated Status: Chronic Assessment and Plan: - cessation of daily alcohol use years ago, now drinks NA beer. However upon review, hematology reported patient was still drinking. C1 place. on [facility] protocol - IV fluids: 3L in ED, will give banana bag x1 - start daily thiamine and folic acid - antiemetics PRN (3) Bacteremia: Code(s): R78.81 - Bacteremia Status: Acute Assessment and Plan: Source from wound Blood culture from 0 05/13 shows Gram-negative bacilli awaiting speciation and sensitivity repeat culture ordered Continue Zosyn Monitor leukocytosis Monitor for temperature and vital Plan Diet: Heart healthy DVT Prophylaxis: Eliquis Code Status: Full code Subjective Date/time seen: 05/17/25 13:28 Interval history: Comfortable at bedside Review of Systems Review of Systems: All systems reviewed & are unremarkable except as noted in HPI and below Exam Const: General: comfortable and no acute distress Other: , male, nontoxic appearance HENMT: Face/Nose/Sinus: Normal nares present Mouth: Yes moist mucous membranes Eyes: General: appearance normal, both eyes and all related structures Sclera: sclerae normal Pupils: Equal, round and reactive pupils present EOM: EOMs intact bilaterally Resp: Effort & Inspection: normal respiratory effort Auscultation: clear to auscultation bilaterally Cardio: Rate: regular rate Other: S1-S2 present without murmur, rub, ectopy GI: Other: Abdomen soft, nondistended, nontender. Normoactive bowel sounds in all quadrants. Skin: Other: Lipodermatosclerosis of BLE. No open wounds to the RLE. Multiple open wounds to the RLE with large volume of live maggots. Skin appears dry with some necrotic changes, but no signs of infection including erythema or purulent drainage. Neurovascularly intact. Neuro: Cranial nerves: Yes Equal, round and reactive pupils present Speech: normal speech Motor exam (neuro): 5/5 motor strength present throughout Sensory Exam: normal sensation Other: A&O x4 Extrem: General: normal exam except as noted (See skin exam) Psych: Mental Status: mental status grossly normal Affect: normal affect Other: Good insight judgment, pleasant Objective Data Vital Signs Vital Signs: Vital Signs - 24 hr 05/16/25 14:00 05/16/25 19:42 05/16/25 20:00 Temperature 97.8 F 96.5 F L Pulse Rate 72 59 L Respiratory Rate 16 18 Blood Pressure 124/71 92/55 L Pulse Oximetry 96 95 Oxygen Delivery Room Air 05/17/25 04:22 05/17/25 08:00 Temperature 97.1 F L Pulse Rate 54 L Respiratory Rate 18 Blood Pressure 118/90 Pulse Oximetry 96 Oxygen Delivery Room Air Intake/Output Intake/Output: Intake & Output 05/14/25 05/15/25 05/16/25 05/17/25 23:59 23:59 23:59 23:59 Intake Total 2354 1632 1924 780 Output Total 550 675 450 Balance 6525 679 5639 780 Meds/Results Medications: Active Medications Generic Name Dose Route Start Last Admin Trade Name Freq PRN Reason Stop Dose Admin Apixaban 2.5 mg 05/14/25 09:00 05/17/25 08:14 Apixaban 2.5 Mg Tablet PO 2.5 mg Q12HR ARNAV Administration Chlordiazepoxide HCl 25 mg 05/13/25 13:59 Chlordiazepoxide (*Crx) 25 Mg Capsule PO Q6H PRN Withdrawal Folic Acid 1 mg 05/14/25 09:00 05/17/25 08:14 Folic Acid 1 Mg Tablet PO 1 mg DAILY ARNAV Administration Piperacillin/Tazobactam/Dextrose 3.375 gm in 50 mls @ 100 mls/hr 05/13/25 18:00 05/17/25 12:51 Zosyn 3.375 Gm/Ns 50 Ml IVPB Infused Q6H ARNAV Infusion Lorazepam 2 mg 05/13/25 13:59 Lorazepam Inj (*Crx) 2 Mg/Ml Vial IV PUSH Q4H PRN CIWA 8-15 Morphine Sulfate 2 mg 05/13/25 14:01 05/13/25 22:20 Morphine Sulfate (*Crx) 2 Mg/Ml Inj IV PUSH 2 mg Q4H PRN Administration Pain Rated 7-10 Nicotine 1 patch 05/16/25 14:45 05/17/25 08:16 Nicotine (*Pbkc) 21 Mg Patch TRANSDERM Not Given DAILY ARNAV Ondansetron HCl 4 mg 05/13/25 13:59 Ondansetron Inj 4 Mg/2 Ml Vial IV PUSH Q6H PRN Nausea And Vomiting Oxycodone HCl 2.5 mg 05/13/25 14:01 05/16/25 14:49 Oxycodone Hcl (*Crx) 2.5 Mg Tab Ir PO 2.5 mg Q4H PRN Administration Pain Rated 4-6 Pantoprazole Sodium 40 mg 05/14/25 09:00 05/17/25 08:14 Pantoprazole 40 Mg Tablet PO 40 mg QAM ARNAV Administration Pregabalin 100 mg 05/14/25 09:00 05/17/25 12:19 Pregabalin (*Crx) 50 Mg Capsule PO 100 mg TID ARNAV Administration Silver Sulfadiazine 1 applic 05/14/25 14:00 05/17/25 08:15 Silver Sulfadiazine 1% Cr 400 Gm Jar (*Bkc) TOPICAL 1 applic DAILY ARNAV Administration Thiamine HCl 100 mg 05/14/25 09:00 05/17/25 08:14 Thiamine Hcl 100 Mg Tablet PO 100 mg QAM ARNAV Administration Vitamin B Complex/Folic Acid 1 cap 05/15/25 09:00 05/15/25 08:07 Vitamin B Cmplx/Vit C/Folic Ac 1 Capsule PO 1 cap WEEKLY ARNAV Administration Radiology Results: ITS Impressions Lower Extremity CT 05/13/25 12:20 IMPRESSION: 1. Skin ulcerations at the mid to distal calf without evident abscess or soft tissue gas. 2. Periosteal reaction along the left tibial and fibular diaphyses most likely related to chronic venous stasis. Differential would include hypertrophic pulmonary osteoarthropathy although there is no evident pulmonary disease on chest CT dated 06/24/2024 Labs Labs: Laboratory Results - last 24 hr 05/16/25 05/16/25 05/17/25 17:48 23:36 05:25 WBC 5.1 RBC 4.29 L Hgb 15.7 Hct 48.3 MCV 112.6 H MCH 36.6 H MCHC 32.5 RDW 14.8 H Plt Count 133 L MPV 9.9 Immature Gran % (Auto) 1.0 H Neut % (Auto) 58.5 Lymph % (Auto) 23.7 [place] % (Auto) 12.1 H Eos % (Auto) 3.5 Baso % (Auto) 1.2 Lymph # (Auto) 1.22 [place] # (Auto) 0.6 Eos # (Auto) 0.2 Baso # (Auto) 0.1 Abs Immat Gran (auto) 0.05 H Absolute Neuts (auto) 3.0 Absolute Nucleated RBC 0.000 Nucleated RBC % 0.0 Sodium 137 Potassium 3.9 Chloride 102 Carbon Dioxide 28 Anion Gap 7 BUN 9 Creatinine 1.09 Estim Creat Clear Calc 72 Estimated GFR > 60 Glucose 82 POC Capillary Glucose 126 H 90 Calcium 8.6 Magnesium 2.2 Total Bilirubin 0.7 AST 22 ALT 8 Alkaline Phosphatase 57 Total Protein 6.7 Albumin 3.3 L 05/17/25 11:49 WBC RBC Hgb Hct MCV MCH MCHC RDW Plt Count MPV Immature Gran % (Auto) Neut % (Auto) Lymph % (Auto) [place] % (Auto) Eos % (Auto) Baso % (Auto) Lymph # (Auto) [place] # (Auto) Eos # (Auto) Baso # (Auto) Abs Immat Gran (auto) Absolute Neuts (auto) Absolute Nucleated RBC Nucleated RBC % Sodium Potassium Chloride Carbon Dioxide Anion Gap BUN Creatinine Estim Creat Clear Calc Estimated GFR Glucose POC Capillary Glucose 85 Calcium Magnesium Total Bilirubin AST ALT Alkaline Phosphatase Total Protein Albumin Quality VTE Prophylaxis VTE prophylaxis: pharmacologic ordered
[2025-05-17 14:00] VITALS: BP 129/72; PULSE 69; RESP 18; TEMP 36.6; O2SAT 100
[2025-05-17] MEDS: oxyCODONE HCL (*CRX) 2.5 MG TAB IR PO (19:25)
[2025-05-17 20:14] VITALS: BP 103/65; PULSE 60; RESP 16; TEMP 36.4; O2SAT 94
[2025-05-17 22:15] VITALS: O2SAT 96
[2025-05-17] MEDS: NICOTINE (*PBKC) 21 MG PATCH 1 PATCH TRANSDERM (22:50)
[2025-05-18] MEDS: PIPERACILLN/TAZ 3.375GM/NS50ML 3.375 GM/50 ML BAG IVPB ×5 (00:24→23:31)
[2025-05-18 05:33] VITALS: BP 102/68; PULSE 60; RESP 16; TEMP 36.3; O2SAT 98
[2025-05-18 08:00] VITALS: O2SAT 98
[2025-05-18] MEDS: PREGABALIN (*CRX) 50 MG CAPSULE 100 MG PO ×3 (08:00→16:21)
[2025-05-18] MEDS: PANTOPRAZOLE 40 MG TABLET PO (08:00)
[2025-05-18] MEDS: APIXABAN 2.5 MG TABLET PO ×2 (08:00→21:47)
[2025-05-18] MEDS: FOLIC ACID 1 MG TABLET PO (08:00)
[2025-05-18] MEDS: THIAMINE HCL 100 MG TABLET PO (08:01)
[2025-05-18] MEDS: SILVER SULFADIAZINE 1% CR 400 GM JAR (*BKC) 1 APPLIC TOPICAL (08:01)
--- NOTE | 2025-05-18 10:25 | PCNWS ---
Weekly nutritional screen. Patient is tolerating current heart healthy diet with adequate intake 50-100%. No weight loss reported. No nutritional recommendations at this time.
--- NOTE | 2025-05-18 11:03 | PM.IMPN ---
Progress Note: A&P Assessment and Plan (1) Skin ulcer of left lower leg: Qualifiers: Non-pressure ulcer stage: unspecified non-pressure ulcer stage Qualified Code(s): L97.929 - Non-pressure chronic ulcer of unspecified part of left lower leg with unspecified severity Code(s): L97.929 - Non-pressure chronic ulcer of unspecified part of left lower leg with unspecified severity Status: Acute Assessment and Plan: - CT LLE, 05/13: 1. Skin ulcerations at the mid to distal calf without evident abscess or soft tissue gas. 2. Periosteal reaction along the left tibial and fibular diaphyses most likely related to chronic venous stasis. Differential would include hypertrophic pulmonary osteoarthropathy although there is no evident pulmonary disease on chest CT dated 06/24/2024 - Wound care following - Continue Zosyn - General surgery recommending wound care and no debridement needed (2) ETOH abuse: Code(s): F10.10 - Alcohol abuse, uncomplicated Status: Chronic Assessment and Plan: - cessation of daily alcohol use years ago, now drinks NA beer. However upon review, hematology reported patient was still drinking. C1 place. on [facility] protocol - IV fluids: 3L in ED, will give banana bag x1 - start daily thiamine and folic acid - antiemetics PRN (3) Bacteremia: Code(s): R78.81 - Bacteremia Status: Acute Assessment and Plan: Source from wound Blood culture from 0 05/13 shows Gram-negative bacilli awaiting speciation and sensitivity repeat culture ordered Continue Zosyn awaiting 72 hour repeat cultures tomorrow Plan Diet: Heart healthy DVT Prophylaxis: Eliquis Code Status: Full code Subjective Date/time seen: 05/18/25 11:03 Interval history: Comfortable at bedside Awaiting one more day of monitoring repeat blood culture since first blood culture still locked in limbo as no speciation and sensitivity is still pending Review of Systems Review of Systems: All systems reviewed & are unremarkable except as noted in HPI and below Exam Const: General: comfortable and no acute distress Other: , male, nontoxic appearance HENMT: Face/Nose/Sinus: Normal nares present Mouth: Yes moist mucous membranes Eyes: General: appearance normal, both eyes and all related structures Sclera: sclerae normal Pupils: Equal, round and reactive pupils present EOM: EOMs intact bilaterally Resp: Effort & Inspection: normal respiratory effort Auscultation: clear to auscultation bilaterally Cardio: Rate: regular rate Other: S1-S2 present without murmur, rub, ectopy GI: Other: Abdomen soft, nondistended, nontender. Normoactive bowel sounds in all quadrants. Skin: Other: Lipodermatosclerosis of BLE. No open wounds to the RLE. Multiple open wounds to the RLE with large volume of live maggots. Skin appears dry with some necrotic changes, but no signs of infection including erythema or purulent drainage. Neurovascularly intact. Neuro: Cranial nerves: Yes Equal, round and reactive pupils present Speech: normal speech Motor exam (neuro): 5/5 motor strength present throughout Sensory Exam: normal sensation Other: A&O x4 Extrem: General: normal exam except as noted (See skin exam) Psych: Mental Status: mental status grossly normal Affect: normal affect Other: Good insight judgment, pleasant Objective Data Vital Signs Vital Signs: Vital Signs - 24 hr 05/17/25 14:00 05/17/25 20:14 05/17/25 22:15 Temperature 97.8 F 97.5 F L Pulse Rate 69 60 Respiratory Rate 18 16 Blood Pressure 129/72 103/65 Pulse Oximetry 100 94 96 Oxygen Delivery Room Air 05/18/25 05:33 05/18/25 08:00 Temperature 97.3 F L Pulse Rate 60 Respiratory Rate 16 Blood Pressure 102/68 Pulse Oximetry 98 98 Oxygen Delivery Room Air Intake/Output Intake/Output: Intake & Output 05/15/25 05/16/25 05/17/25 05/18/25 23:59 23:59 23:59 23:59 Intake Total 1632 1924 1310 100 Output Total 675 450 Balance 957 1474 1310 100 Meds/Results Medications: Active Medications Generic Name Dose Route Start Last Admin Trade Name Freq PRN Reason Stop Dose Admin Apixaban 2.5 mg 05/14/25 09:00 05/18/25 08:00 Apixaban 2.5 Mg Tablet PO 2.5 mg Q12HR ARNAV Administration Chlordiazepoxide HCl 25 mg 05/13/25 13:59 Chlordiazepoxide (*Crx) 25 Mg Capsule PO Q6H PRN Withdrawal Folic Acid 1 mg 05/14/25 09:00 05/18/25 08:00 Folic Acid 1 Mg Tablet PO 1 mg DAILY ARNAV Administration Piperacillin/Tazobactam/Dextrose 3.375 gm in 50 mls @ 100 mls/hr 05/13/25 18:00 05/18/25 05:44 Zosyn 3.375 Gm/Ns 50 Ml IVPB Infused Q6H ARNAV Infusion Lorazepam 2 mg 05/13/25 13:59 Lorazepam Inj (*Crx) 2 Mg/Ml Vial IV PUSH Q4H PRN CIWA 8-15 Morphine Sulfate 2 mg 05/13/25 14:01 05/13/25 22:20 Morphine Sulfate (*Crx) 2 Mg/Ml Inj IV PUSH 2 mg Q4H PRN Administration Pain Rated 7-10 Nicotine 1 patch 05/16/25 14:45 05/17/25 22:50 Nicotine (*Pbkc) 21 Mg Patch TRANSDERM 1 patch DAILY ARNAV Administration Ondansetron HCl 4 mg 05/13/25 13:59 Ondansetron Inj 4 Mg/2 Ml Vial IV PUSH Q6H PRN Nausea And Vomiting Oxycodone HCl 2.5 mg 05/13/25 14:01 05/17/25 19:25 Oxycodone Hcl (*Crx) 2.5 Mg Tab Ir PO 2.5 mg Q4H PRN Administration Pain Rated 4-6 Pantoprazole Sodium 40 mg 05/14/25 09:00 05/18/25 08:00 Pantoprazole 40 Mg Tablet PO 40 mg QAM ARNAV Administration Pregabalin 100 mg 05/14/25 09:00 05/18/25 08:00 Pregabalin (*Crx) 50 Mg Capsule PO 100 mg TID ARNAV Administration Silver Sulfadiazine 1 applic 05/14/25 14:00 05/18/25 08:01 Silver Sulfadiazine 1% Cr 400 Gm Jar (*Bkc) TOPICAL 1 applic DAILY ARNAV Administration Thiamine HCl 100 mg 05/14/25 09:00 05/18/25 08:01 Thiamine Hcl 100 Mg Tablet PO 100 mg QAM ARNAV Administration Vitamin B Complex/Folic Acid 1 cap 05/15/25 09:00 05/15/25 08:07 Vitamin B Cmplx/Vit C/Folic Ac 1 Capsule PO 1 cap WEEKLY ARNAV Administration Radiology Results: ITS Impressions Lower Extremity CT 05/13/25 12:20 IMPRESSION: 1. Skin ulcerations at the mid to distal calf without evident abscess or soft tissue gas. 2. Periosteal reaction along the left tibial and fibular diaphyses most likely related to chronic venous stasis. Differential would include hypertrophic pulmonary osteoarthropathy although there is no evident pulmonary disease on chest CT dated 06/24/2024 Labs Labs: Laboratory Results - last 24 hr 05/17/25 11:49 POC Capillary Glucose 85 Quality VTE Prophylaxis VTE prophylaxis: pharmacologic ordered
--- NOTE | 2025-05-18 12:49 | P.PNGS_ITS ---
Progress Note: A&P Assessment and Plan (1) Venous stasis dermatitis of left lower extremity: Code(s): I87.2 - Venous insufficiency (chronic) (peripheral) Status: Acute Assessment and Plan: * Patient has extensive circumferential venous stasis changes of the left lower extremity with 3 wounds on the lower leg that remain stable without any signs of infection. Okay from a surgical standpoint to discharge home with home health. We will have him follow-up in the wound clinic next Thursday for a wound check. (2) Infestation by maggots: Code(s): B87.9 - Myiasis, unspecified Status: Acute Assessment and Plan: * See plan above. (3) Bacteremia: Code(s): R78.81 - Bacteremia Status: Acute Assessment and Plan: * Still admitted for his bacteremia. Repeat blood cx on 05/16 NGTD. Management per Hospitalist. Plan I have discussed the patient's case and plan of care with Dr. Ortiz. Subjective Subjective Date/Time Seen: 05/18/25 12:49 Patient reports: no new complaints Interval history: No acute issues overnight. No specific complaints at the time of my exam. Exam Narrative: Left lower extremity dressing dry and intact, changed by nursing this morning Objective Data Vital Signs Vital Signs: Vital Signs - 24 hr 05/17/25 14:00 05/17/25 20:14 05/17/25 22:15 Temperature 97.8 F 97.5 F L Pulse Rate 69 60 Respiratory Rate 18 16 Blood Pressure 129/72 103/65 Pulse Oximetry 100 94 96 Oxygen Delivery Room Air 05/18/25 05:33 05/18/25 08:00 Temperature 97.3 F L Pulse Rate 60 Respiratory Rate 16 Blood Pressure 102/68 Pulse Oximetry 98 98 Oxygen Delivery Room Air Intake/Output Intake/Output: Intake & Output 05/15/25 05/16/25 05/17/25 05/18/25 23:59 23:59 23:59 23:59 Intake Total 1632 1924 1310 100 Output Total 675 450 Balance 957 1474 1310 100 Meds/Results Medications: Active Medications Generic Name Dose Route Start Last Admin Trade Name Freq PRN Reason Stop Dose Admin Apixaban 2.5 mg 05/14/25 09:00 05/18/25 08:00 Apixaban 2.5 Mg Tablet PO 2.5 mg Q12HR ARNAV Administration Chlordiazepoxide HCl 25 mg 05/13/25 13:59 Chlordiazepoxide (*Crx) 25 Mg Capsule PO Q6H PRN Withdrawal Folic Acid 1 mg 05/14/25 09:00 05/18/25 08:00 Folic Acid 1 Mg Tablet PO 1 mg DAILY ARNAV Administration Piperacillin/Tazobactam/Dextrose 3.375 gm in 50 mls @ 100 mls/hr 05/13/25 18:00 05/18/25 12:21 Zosyn 3.375 Gm/Ns 50 Ml IVPB 100 mls/hr Q6H ARNAV Administration Lorazepam 2 mg 05/13/25 13:59 Lorazepam Inj (*Crx) 2 Mg/Ml Vial IV PUSH Q4H PRN CIWA 8-15 Morphine Sulfate 2 mg 05/13/25 14:01 05/13/25 22:20 Morphine Sulfate (*Crx) 2 Mg/Ml Inj IV PUSH 2 mg Q4H PRN Administration Pain Rated 7-10 Nicotine 1 patch 05/16/25 14:45 05/17/25 22:50 Nicotine (*Pbkc) 21 Mg Patch TRANSDERM 1 patch DAILY ARNAV Administration Ondansetron HCl 4 mg 05/13/25 13:59 Ondansetron Inj 4 Mg/2 Ml Vial IV PUSH Q6H PRN Nausea And Vomiting Oxycodone HCl 2.5 mg 05/13/25 14:01 05/17/25 19:25 Oxycodone Hcl (*Crx) 2.5 Mg Tab Ir PO 2.5 mg Q4H PRN Administration Pain Rated 4-6 Pantoprazole Sodium 40 mg 05/14/25 09:00 05/18/25 08:00 Pantoprazole 40 Mg Tablet PO 40 mg QAM ARNAV Administration Pregabalin 100 mg 05/14/25 09:00 05/18/25 12:21 Pregabalin (*Crx) 50 Mg Capsule PO 100 mg TID ARNAV Administration Silver Sulfadiazine 1 applic 05/14/25 14:00 05/18/25 08:01 Silver Sulfadiazine 1% Cr 400 Gm Jar (*Bkc) TOPICAL 1 applic DAILY ARNAV Administration Thiamine HCl 100 mg 05/14/25 09:00 05/18/25 08:01 Thiamine Hcl 100 Mg Tablet PO 100 mg QAM ARNAV Administration Vitamin B Complex/Folic Acid 1 cap 05/15/25 09:00 05/15/25 08:07 Vitamin B Cmplx/Vit C/Folic Ac 1 Capsule PO 1 cap WEEKLY ARNAV Administration Radiology Results: ITS Impressions Lower Extremity CT 05/13/25 12:20 IMPRESSION: 1. Skin ulcerations at the mid to distal calf without evident abscess or soft tissue gas. 2. Periosteal reaction along the left tibial and fibular diaphyses most likely related to chronic venous stasis. Differential would include hypertrophic pulmonary osteoarthropathy although there is no evident pulmonary disease on chest CT dated 06/24/2024
[2025-05-18 14:00] VITALS: BP 100/63; PULSE 50; RESP 14; TEMP 36.3; O2SAT 100
[2025-05-18 20:41] VITALS: BP 106/73; PULSE 54; RESP 16; TEMP 36.5; O2SAT 97
[2025-05-18 23:05] VITALS: O2SAT 96
[2025-05-19] MEDS: PIPERACILLN/TAZ 3.375GM/NS50ML 3.375 GM/50 ML BAG IVPB (05:16)
[2025-05-19 05:43] VITALS: BP 112/74; PULSE 63; RESP 16; TEMP 36.8; O2SAT 100
[2025-05-19] MEDS: FOLIC ACID 1 MG TABLET PO (07:54)
[2025-05-19] MEDS: PANTOPRAZOLE 40 MG TABLET PO (07:54)
[2025-05-19] MEDS: SILVER SULFADIAZINE 1% CR 400 GM JAR (*BKC) 1 APPLIC TOPICAL (07:54)
[2025-05-19] MEDS: APIXABAN 2.5 MG TABLET PO (07:54)
[2025-05-19] MEDS: THIAMINE HCL 100 MG TABLET PO (07:55)
[2025-05-19] MEDS: PREGABALIN (*CRX) 50 MG CAPSULE 100 MG PO (07:55)
--- NOTE | 2025-05-19 09:38 | P.PNGS_ITS ---
Progress Note: A&P Assessment and Plan (1) Venous stasis dermatitis of left lower extremity: Code(s): I87.2 - Venous insufficiency (chronic) (peripheral) Status: Acute Assessment and Plan: * Patient has extensive circumferential venous stasis changes of the left lower extremity with 3 wounds on the lower leg that remain stable without any signs of infection. Okay from a surgical standpoint to discharge home with home health. We will have him follow-up in the wound clinic next Thursday for a wound check. (2) Infestation by maggots: Code(s): B87.9 - Myiasis, unspecified Status: Acute Assessment and Plan: * See plan above. (3) Bacteremia: Code(s): R78.81 - Bacteremia Status: Acute Assessment and Plan: * Still admitted for his bacteremia. Blood cx from 05/13 with gram negative bacilli. Repeat blood cx on 05/16 NGTD . Management per Hospitalist. Plan I have discussed the patient's case and plan of care with Dr. Ortiz. Subjective Subjective Date/Time Seen: 05/19/25 09:38 Patient reports: no new complaints, feels better, tolerating a regular diet, bowel movement and afebrile Interval history: Patient is feeling well today. Ambulating around the room without difficulty. Vital signs stable. WBC has remained normal. Dressing change this morning by nursing staff. Exam Const: General: comfortable and no acute distress Skin: General skin exam: rashes Rashes: rashes noted Other: Extensive left lower extremity venous stasis changes circumferentially from the knee distally to the ankle. There is a 6x4cm irregularly shaped open wound with 100% red/pink wound bed, no necrotic tissue or purulent drainage. There is another superficial open wound to the left lateral leg measuring 4 x 2 x 0.3 cm with 100% pink wound bed, no necrotic tissue or purulent drainage. There is a smaller 2 x 2 x 0.3 cm open wound on the posterior aspect of the lower leg with 100% pink wound bed, no purulent drainage or necrotic tissue. No surrounding erythema or cellulitic changes of the left lower extremity. The right lower extremity has some mild venous stasis changes without cellulitis. Objective Data Vital Signs Vital Signs: Vital Signs - 24 hr 05/18/25 14:00 05/18/25 20:41 05/18/25 23:05 Temperature 97.3 F L 97.7 F Pulse Rate 50 L 54 L Respiratory Rate 14 16 Blood Pressure 100/63 106/73 Pulse Oximetry 100 97 96 Oxygen Delivery Room Air 05/19/25 05:43 Temperature 98.3 F Pulse Rate 63 Respiratory Rate 16 Blood Pressure 112/74 Pulse Oximetry 100 Oxygen Delivery Intake/Output Intake/Output: Intake & Output 05/16/25 05/17/25 05/18/25 05/19/25 23:59 23:59 23:59 23:59 Intake Total 1924 1310 680 50 Output Total 450 Balance 1474 1310 680 50 Meds/Results Medications: Active Medications Generic Name Dose Route Start Last Admin Trade Name Freq PRN Reason Stop Dose Admin Apixaban 2.5 mg 05/14/25 09:00 05/19/25 07:54 Apixaban 2.5 Mg Tablet PO 2.5 mg Q12HR ARNAV Administration Chlordiazepoxide HCl 25 mg 05/13/25 13:59 Chlordiazepoxide (*Crx) 25 Mg Capsule PO Q6H PRN Withdrawal Folic Acid 1 mg 05/14/25 09:00 05/19/25 07:54 Folic Acid 1 Mg Tablet PO 1 mg DAILY ARNAV Administration Piperacillin/Tazobactam/Dextrose 3.375 gm in 50 mls @ 100 mls/hr 05/13/25 18:00 05/19/25 05:16 Zosyn 3.375 Gm/Ns 50 Ml IVPB 100 mls/hr Q6H ARNAV Administration Lorazepam 2 mg 05/13/25 13:59 Lorazepam Inj (*Crx) 2 Mg/Ml Vial IV PUSH Q4H PRN CIWA 8-15 Morphine Sulfate 2 mg 05/13/25 14:01 05/13/25 22:20 Morphine Sulfate (*Crx) 2 Mg/Ml Inj IV PUSH 2 mg Q4H PRN Administration Pain Rated 7-10 Nicotine 1 patch 05/16/25 14:45 05/19/25 07:53 Nicotine (*Pbkc) 21 Mg Patch TRANSDERM Not Given DAILY ARNAV Ondansetron HCl 4 mg 05/13/25 13:59 Ondansetron Inj 4 Mg/2 Ml Vial IV PUSH Q6H PRN Nausea And Vomiting Oxycodone HCl 2.5 mg 05/13/25 14:01 05/17/25 19:25 Oxycodone Hcl (*Crx) 2.5 Mg Tab Ir PO 2.5 mg Q4H PRN Administration Pain Rated 4-6 Pantoprazole Sodium 40 mg 05/14/25 09:00 05/19/25 07:54 Pantoprazole 40 Mg Tablet PO 40 mg QAM ARNAV Administration Pregabalin 100 mg 05/14/25 09:00 05/19/25 07:55 Pregabalin (*Crx) 50 Mg Capsule PO 100 mg TID ARNAV Administration Silver Sulfadiazine 1 applic 05/14/25 14:00 05/19/25 07:54 Silver Sulfadiazine 1% Cr 400 Gm Jar (*Bkc) TOPICAL 1 applic DAILY ARNAV Administration Thiamine HCl 100 mg 05/14/25 09:00 05/19/25 07:55 Thiamine Hcl 100 Mg Tablet PO 100 mg QAM ARNAV Administration Vitamin B Complex/Folic Acid 1 cap 05/15/25 09:00 05/15/25 08:07 Vitamin B Cmplx/Vit C/Folic Ac 1 Capsule PO 1 cap WEEKLY ARNAV Administration Radiology Results: ITS Impressions Lower Extremity CT 05/13/25 12:20 IMPRESSION: 1. Skin ulcerations at the mid to distal calf without evident abscess or soft tissue gas. 2. Periosteal reaction along the left tibial and fibular diaphyses most likely related to chronic venous stasis. Differential would include hypertrophic pulmonary osteoarthropathy although there is no evident pulmonary disease on chest CT dated 06/24/2024
--- NOTE | 2025-05-19 12:03 | PM.DS ---
DS: Admitting Diagnosis Discharge Date 05/19/25 Admitting Diagnosis Lower Extremity Wound DS: Discharge Diagnosis Discharge Diagnosis (1) Skin ulcer of left lower leg: Qualifiers: Non-pressure ulcer stage: unspecified non-pressure ulcer stage Qualified Code(s): L97.929 - Non-pressure chronic ulcer of unspecified part of left lower leg with unspecified severity Code(s): L97.929 - Non-pressure chronic ulcer of unspecified part of left lower leg with unspecified severity Status: Acute (2) Bacteremia: Code(s): R78.81 - Bacteremia Status: Acute (3) Infestation by maggots: Code(s): B87.9 - Myiasis, unspecified Status: Acute DS: Summary Hospital Course Hospital Course: 54 y/o M with PMH of peripheral neuropathy, vitamin B12 deficiency, recurrent PE (12/2022, 07/2023), DVT (2022), pancreatitis, alcohol abuse, and hypertension presents here with wound to his left lower extremity. The patient presents here from home for further evaluation of a wound to his left lower extremity. The patient does not know when the wound developed, however reports that has at least been a few months. Seeking care today when he noted maggots for the 1st time this morning. Has previously seen at postage machine operator at [facility] for a few months and they gave him topical medications that he reports did not help at all. He reports accompanying mild chills. Denies fever, nausea, vomiting, diarrhea, or body aches. He has a history of neuropathy. History of alcoholism - now drinking NA beers. Initial VS at presentation: 99.5? F, HR 84, R 16, 169/81, and 100% on RA. ED workup showed: No leukocytosis, hemoglobin 18.9, normal coags, sodium 135, creatinine 0.98 and GFR >60, normal LFTs, total bilirubin 1.5, UA showed a high specific gravity 1+ protein otherwise unremarkable. CT of the left lower extremity showed skin ulcerations at the mid to distal calf without evidence of abscess or soft tissue gas, periosteal reaction along the left tibial and fibular diaphyses most likely related to chronic venous stasis, differential would include hypertrophic pulmonary osteoarthropathy although there is no evidence of pulmonary disease on chest CT from June 24, 2024. Gen surgery was consulted, evaluated adn noted taht patient does not need debridement, however recommended wound care. Patient was placed on antibiotics and wound care contnued. Blood culture grew GNB but was unable to be finalized. Repeat blood culture however was negative after 24 hours. Patient discharged on Levaquin and Flagyl for another 4 weeks. He will continue follow up with Gen surgery as instructed F/u with PCP in 3-5 days and follow up with wound care. Time Spent with Patient Time attestation: Total time spent providing and/or coordinating discharge services: DS: Data Data Completed and Pending Labs on day of discharge: Preliminary micro results at discharge 05/13/25 11:32 Blood Culture - Preliminary Blood Gram negative bacilli isolated 05/13/25 11:15 Blood Culture - Preliminary Blood Gram negative bacilli isolated 05/16/25 11:01 Blood Culture - Preliminary Blood 05/16/25 10:50 Blood Culture - Preliminary Blood Discharge Plan Discharge Attending physician on discharge: Elie Franco Consulting providers: Prabhu Ortiz Discharging Clinician: Elie Franco Anticipated Discharge Date/Time: 05/19/25 11:50 Patient Disposition: Home with Home Health Service Activity: as tolerated Diet: as tolerated Discharge Instructions: [facility] to follow for wound care. [facility] will call patient to set up time for admission. [facility] [phone] Daily Wash bilateral lower legs with soap and water, then apply a thin layer of Silvadene cream to open areas on left lower leg, cover with an ABD pad and wrap with kerlex. Dressing should be changed every day Initial appointment at [facility] will be on Saturday May 24, 2025 at 9:30AM. Please arrive 30 minutes(9:00AM) before your appointment time, as you must go through Registration. Registration is located in the lab in [facility] Entrance 1. Once registered, wound center is located on the 2nd floor. For questions regarding appointment time, please contact [phone] Patient Instructions: Antibiotic Form Patient Language: Kazakh Stand Alone Forms: General Discharge Information Follow-up/Referrals: Lexi Alvarado MD [Primary Care Provider] - (F/u with PCP in 3-5 days ) Prabhu Ortiz MD [Physician] - (F/u with Gen surgery as instructed ) Discharge Medications: New thiamine HCl (vitamin B1) [Vitamin B-1] 100 mg Tablet 100 mg PO QAM 30 Days Qty: 30 0RF oxycodone 5 mg tablet 5 mg PO Q8H PRN (Reason: pain) 12 Days Qty: 10 0RF metronidazole 500 mg tablet 500 mg PO Q8H 28 Days Qty: 84 0RF levofloxacin 750 mg tablet 750 mg PO DAILY 28 Days Qty: 28 0RF Continued Eliquis 2.5 mg tablet 2.5 mg PO BID pregabalin [Lyrica] 100 mg capsule 100 mg PO TID Qty: 270 0RF folic acid 1 mg tablet 1 mg PO DAILY multivitamin [Daily Multi-Vitamin] Tablet 1 tablet PO DAILY Qty: 30 0RF Dialyvite 100-1 mg tablet 1 tablet PO WEEKLY omeprazole 20 mg capsule,delayed release(DR/EC) See Rx Instructions .ROUTE .COMPLEX Qty: 90 0RF Dose Instruction: TAKE 1 CAPSULE BY MOUTH DAILY Rx Instructions: TAKE 1 CAPSULE BY MOUTH DAILY Date of admission: 05/13/25 13:54 Primary Care Provider: Lexi Alvarado Admitting Provider: Tanner Hannon Attending physician on admission: Tanner Hannon Condition: Stable
== END 2025-05-19 12:29 | disposition home health service (06) | DRG 197 ==
LOC: ANHED 13:59 → ANH3MEDSUR 14:29
PROVIDERS: Student in an Organized Health Care Education/Training Program; Admitting Provider General Practice; Emergency Provider Emergency Medicine; PCP Family Medicine; Visit Provider Internal Medicine
DX: I87.2 Venous insufficiency (chronic) (peripheral) (principal); L97.229 Non-pressure chronic ulcer of left calf with unspecified severity; B87.0 Cutaneous myiasis; R78.81 Bacteremia; I34.1 Nonrheumatic mitral (valve) prolapse; I10 Essential (primary) hypertension; E53.8 Deficiency of other specified B group vitamins; E55.9 Vitamin D deficiency, unspecified; K76.0 Fatty (change of) liver, not elsewhere classified; G62.9 Polyneuropathy, unspecified; F17.210 Nicotine dependence, cigarettes, uncomplicated; Z86.718 Personal history of other venous thrombosis and embolism; Z86.711 Personal history of pulmonary embolism; Z86.0101 Personal history of adenomatous and serrated colon polyps; Z79.01 Long term (current) use of anticoagulants
CPT/HCPCS: 36415; 73701; 80053; 80202; 81001; 82803; 82948; 83605; 83735; 84100; 85025; 85027; 85055; 85610; 85730; 87040; 96361; 96365; 96375; 99291; A4248; A9270; J1171; J2270; J2543; J3370; J3411; J3475; J7030; J7120; Q9967

== ENCOUNTER 2025-07-20 07:08 | Outpatient (RCR) | payer OTHER, SELFPAY ==
[2025-05-24 09:58] VITALS: BMI 20.8
--- NOTE | 2025-06-15 22:24 | P.PNGS_ITS ---
Progress Note: A&P Assessment and Plan (1) Skin ulcer of left lower leg: Qualifiers: Non-pressure ulcer stage: unspecified non-pressure ulcer stage Qualified Code(s): L97.929 - Non-pressure chronic ulcer of unspecified part of left lower leg with unspecified severity Code(s): L97.929 - Non-pressure chronic ulcer of unspecified part of left lower leg with unspecified severity Status: Acute Assessment and Plan: Skin ulcers continue to decrease in size. Bright red granulation tissue present throughout entirety of wounds. No signs of infection or skin necrosis. Very superficial. Instructed to switch from silver cream to silver gel as the cream may be too thick. Patient has chronic venous stasis dermatitis bilaterally, causing his lower legs to look grayish purple. He needs to follow up with a vascular team, which he has not done yet. Continue daily dressing changes with gauze. Daily cleansing of the area with soap and water. Follow up in 1 month for repeat wound check. Plan Discussed patient's case and plan of care with Dr. Ortiz. Subjective Subjective Date/Time Seen: 06/15/25 22:24 Interval history: Patient seen in wound care clinic today after recent hospitalization 05/14/25 - 05/19/2025 for left lower extremity wound that was infested with maggots upon presentation. Patient has been doing well. Compliant with daily wound care consisting of silver cream. He has chronic venous stasis dermatitis of lower extremities that can make it difficult for these wounds to heal properly. H owever, they are much improved since patient was last seen inpatient. Exam Const: General: comfortable and no acute distress Extrem: Other: Left lower leg wound: 2.3 x 2.5 x 0.2 Left medial leg wound 2.0 x 0.8 x 0.1 Both wounds are healing well with healthy granulation tissue. No signs of recurring infection or skin necrosis. Objective Data Meds/Results Medications: Active Medications Generic Name Dose Route Start Last Admin Trade Name Freq PRN Reason Stop Dose Admin Silver Sulfadiazine 1 applic 05/24/25 09:35 Silver Sulfadiazine 1% Cr 50 Gm Jar (*Bkc) TOPICAL 08/24/25 23:59 PRN PRN Wound Care
--- NOTE | 2025-07-13 12:36 | PCWOUND ---
WOCN NOTE Patient did not show up for appointment. called and he thought is was next week. rescheduled for the at 10:00
== END 2025-08-07 09:03 | disposition home or self-care (01) ==
LOC: ANHWOC 07:08
PROVIDERS: PCP Family Medicine; Visit Provider Surgery
DX: I87.312 Chronic venous hypertension (idiopathic) with ulcer of left lower extremity (principal); L97.929 Non-pressure chronic ulcer of unspecified part of left lower leg with unspecified severity
CPT/HCPCS: 99213; 99214; A9270; G0463

== ENCOUNTER 2025-08-25 09:32 | Outpatient (CLI) | payer OTHER, SELFPAY ==
--- OUTSIDE RECORDS SUMMARY | 2025-08-25 09:40 | XMS_ITS | Clinical Summary ---
Author Organization [facility] Sacha soriano Carmen Address [address] [place] [address] Care Team Providers Care Hand Chain Maker Name Role Phone Eliane Alvarado MD Primary Care Provider Allergies Active Allergy Reactions Criticality Noted Date Comments Nyquil Liquicaps Other (See Comments) Low 3 Shakes, and could not sleep Medications omeprazole (PriLOSEC) 20 mg Capsule, Delayed Release(E.C.) Take 20 mg by mouth daily. 07/22/2023 Active folic acid (FOLVITE) 1 mg tablet TAKE 1 TABLET(1 MG) BY MOUTH DAILY 90 Tablet 2 12/23/2024 Active apixaban (Eliquis) 2.5 mg tablet Take 1 Tablet (2.5 mg) by mouth 2 times daily. 60 Tablet 3 04/24/2025 Active Active Problems Problem Noted Date Diagnosed Date Hyponatremia 08/18/2023 Hypokalemia 08/18/2023 Elevated LFTs 08/18/2023 Acute pulmonary embolism 08/18/2023 History of pulmonary embolism 08/18/2023 Leukocytosis (leucocytosis) 08/18/[address] of the abdomen 08/18/2023 Elevated troponin 08/18/2023 Alcohol use disorder, mild, abuse 08/18/2023 Thrombocytopenia 08/18/2023 GERD (gastroesophageal reflux disease) Tobacco abuse 08/18/2023 RLQ abdominal pain 08/18/2023 Venous stasis dermatitis 11/27/2020 Encounters Date Type Department Care Team Description 08/14/2025 Orders Only [facility] Oncology and Hematology - [address] [place] [id number] Williams Toussaint MD Secondary hypercoagulable state 08/08/2025 External Device Data STL ABSTRACTION Provider, Abstract 07/31/2025 Orders Only [facility] Oncology and Hematology - [address] [place] [phone] Williams Toussaint MD Secondary hypercoagulable state 07/17/2025 Orders Only [facility] Oncology and Hematology - [address] [place] [phone] Williams Toussaint MD Secondary hypercoagulable state 07/03/2025 Orders Only [facility] Oncology and Hematology - [address] [place] [phone] Williams Toussaint MD Secondary hypercoagulable state 06/19/2025 Orders Only [facility] Oncology and Hematology - [address] [place] [phone] Williams Toussaint MD Secondary hypercoagulable state 06/05/2025 Orders Only [facility] Oncology and Hematology - [address] [place] [id number] Williams Toussaint MD Secondary hypercoagulable state from Last 3 Months Family History Medical History Relation Name Comments Skin Cancer Father Relation Name Status Comments Daughter Alive Father Alive Mother Alive Sister Alive Social History Tobacco Use Types Packs/Day Years Used Date Smoking Tobacco: Every Day Cigarettes 1 37.8 Started: 1987 Tobacco Cessation:Ready to Q uit: [...] Sign Reading Time Taken Comments Blood Pressure 122/76 04/24/2025 1:12 PM CDT Pulse 91 04/24/2025 1:12 PM CDT Temperature 36.8 C (98.3 F) 04/24/2025 1:12 PM CDT Respiratory Rate 15 04/24/2025 1:12 PM CDT Oxygen Saturation 96% 04/24/2025 1:12 PM CDT Inhaled Oxygen Concentration - - Weight 73.8 kg (162 lb 12.8 oz) 04/24/2025 1:12 PM CDT Height 188 cm (6' 2) 08/17/2023 11:46 PM CDT Body Mass Index 20.9 08/17/2023 11:46 PM CDT Plan of Treatment Upcoming Encounters Date Type Department Care Team (Late st Contact Info) Description 08/28/2025 2:15 PM CDT Office Visit [facility] Oncology and Hematology - [address] [facility] [address] [place] [address] Williams Toussaint MD [address] [facility] [address] [place] [address] Health Maintenance Due Date Last [...] (1 of 2) 2021 INFLUENZA VACCINE (#1) 2025 Abdominal Aortic Aneurysm (AAA) Screening Completed 08/18/2023 Procedures Procedure Name Priority Date/Time Associated Diagnosis Comments US ABDOMEN COMPLETE Routine 08/18/2023 1 1:43 AM CDT from Last 3 Months or Most Recently Relevant to Health Maintenance Results * US ABDOMEN COMPLETE (08/18/2023 11:43 AM CDT) Anatomical Region Laterality Modality Abdomen Ultrasound 08/18/2023 11:4 5 AM CDT Impressions 08/18/2023 1:45 PM CDT IMPRESSION: No splenic lesions evident on abdominal ultrasound. Hepatic steatosis. Narrative 08/18/2023 1:45 PM CDT PROCEDURE/EXAM(S): US ABDOMEN COMPLETE TECHNIQUE: 2D mode/color Doppler US abdomen (complete). PROVIDED CLINICAL HISTORY/INDICATION: Male of 52 years age. Elevated LFT's, Comment: concern for splenic laceration. See Reason for Exam. DICTATION LOCATION: [address] COMPARISON STUDIES: None. FINDINGS: Pancreas: Visualized [...] laceration. See Reason for Exam. DICTATION LOCATION: Location [address] [place] [address] COMPARISON STUDIES: None. FINDINGS: Pancreas: Visualized portions [...] on abdominal ultrasound. Hepatic steatosis. us Santiago Sutton DO US ORDERABLES Final Result from Last 3 Months or Most Recently Relevant to Health Maintenance Insurance [employer] [place] [employer] [employer] [place] Advance Directives For more information, please contact: [phone] * Full Code (Latest Code Status on File) Date Activated Date Inactivated Comments 08/18/2023 12:37 AM 08/21/2023 5:40 PM Care Teams Hand Chain Maker Relationship Specialty Start Date End Date Eliane Alvarado MD [address] [place] [address] PCP - General Family Practice 03/05/23
--- OUTSIDE RECORDS SUMMARY | 2025-08-25 09:40 | XMS_ITS | Clinical Summary ---
Author Organization [facility] Address [address] [place] [address] Care Team Providers Care Network Project Manager Name Role Phone Mekhi Israel MD Primary Care Provider [phone] Source Comments [facility],non-owned Affiliates and Associated Physician Practices is amultiple site organization consisting of ambulatory clinics and hospital sitesin [place], [place], [place] and [place]. This disclosure is being madepursuant to the Care Everywhere program and may not contain all information available regarding this patient. Last updated 18.[facility] Allergies No known active allergies Medications * Be aware that medications may not be up to date on this document. Alwaysverify current medications with the patient. betamethasone valerate (VALISONE) 0.1 % cream Apply 1 Dose to affected area 2 times daily 0 Active losartan (COZAAR) 25 MG tablet Take 1 tablet by mouth once daily 0 Active ketoconazole (NIZORAL) 2 % creamIndications: Tinea pedis, unspecified laterality Apply to both feet twice daily. 30 days supply. 30 g 2 1 Active triamcinolone acetonide (KENALOG) 0.1 % ointmentIndicatio ns:Venous stasis dermatitis of both lower extremities Apply to affected area on legs BID. 30 day supply 454 g 1 Active terbinafine (LAMISIL) 250 MG tabletIndications :Tinea pedis due to trichophyton Take 1 tab PO daily for 1 week, repeat monthly for 3 months 21 tablet 1 Active clindamycin (CLEOCIN) 1 % lotionIndications :Erythrasma,Pitte d keratolysis Apply to entire foot and in between toes twice daily. 30 day supply. 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 Venous stasis dermatitis 11/27/2020 Family History Medical History Relation Name Comments None Known Brother None Known Father None Known Maternal Aunt None Known Maternal Grandfather None Known Maternal Grandmother None Known Maternal Uncle None Known Mother None Known Other None Known Paternal Aunt None Known Paternal Grandfather None Known Paternal Grandmother None Known Paternal Uncle None Known Sister Asthma Neg Hx CVA Neg Hx Cancer - Breast Neg Hx Cancer - Other Neg Hx Cancer - Skin, Melanoma Neg Hx Cancer - Skin, Non Melanoma Neg Hx Eczema Neg Hx Hemophilia Neg Hx Psoriasis Neg Hx Relation Name Status Comments Brother Father Maternal Aunt Maternal Grandfather Maternal Grandmother Maternal Uncle Mother Other Paternal Aunt Paternal Grandfather Paternal Grandmother Paternal Uncle Sister Social History Tobacco Use Types Packs/Day Years Used Date Smoking Tobacco: Every Day Cigarettes Smokeless Tobacco: Never Alcohol Use Standard Drinks/Week Comments Yes 24 (1 standard drink = 0.6 oz pu re alcohol) Sex and Gender Information Value Date Recorded Sex Assigned at Not on file Legal Sex Male 1:29 PM [employer] Gender Identity Not on file Sexual Orientation Not on file Plan of Treatment Health Maintenance Due Date Last Done Comments COLOGUARD (AGES 45-75) - COL ON CA SCREENING 1971 COLON MONITORING 1971 COLONOSCOPY - COLON CA SCREENING 1971 CT COLONOGRAPHY - COLON CA SCREENING 1971 Colorectal Cancer Screening 1971 FIT - COLON CA SCREENING 1971 FLEX SIG - COLON CA SCREENING 1971 LIPID TESTING 1971 HIV SCREENING 1986 HEPATITIS C SCREENING 11/05/1989 DTAP/TDAP/TD VACCINES (1 - Tdap) 1990 HEPATITIS B VACCINE (1 of 3 - 19+ 3-dose series) 1990 PNEUMOCOCCAL VACCINE 50+ (1 of 2 - PCV) 1990 ZOSTER VACCINE (1 of 2) 2021 DEPRESSION SCREENING 11/23/2024 COVID-19 VACCINE (1 - 2023-2 5 season) 2025 INFLUENZA VACCINE (#1) 2025 HIB VACCINE Aged Out No longer eligi ble based on patient's age to complete this topic HPV VACCINE Aged Out No longer eligi ble based on patient's age to complete this topic MENINGOCOCCAL (Group B) VACC INE SHARED DECISION-MAKING Aged Out No longer eligibl e based on patient's age to complete this topic MENINGOCOCCAL GROUPS A/C/Y/W VACCINE Aged Out No longer eligible b ased on patient's age to complete this topic Insurance [facility] Address: [address] [address] SELF PAY NO INSURANCE Member Subscriber Plan / Payer (Ef fective for All Dates) Name:Ansley Mckinnon Member ID:Not on file Relation to Subscriber:Not on file Name:ANSLEY MCKINNON Subscriber ID:Not on file (Home) Address: [place] [address] Payer ID:Not on file Group ID:Not on file Type:Self Pay Address: [place], [place] Care Teams Network Project Manager Relationship Specialty Start Date End Date Mekhi Israel MD [address] [facility] [address] [place] [address] PCP - General 09/28/20
[2025-08-25 09:49] LABS: Hematocrit 46.8 % (42.0-52.0); Hemoglobin 15.3 g/dL (14.0-18.0); Mean Corpuscular HGB Conc 32.7 g/dl (32-36); Mean Corpuscular Hemoglobin 34.6 pg (26-34); Mean Corpuscular Volume 105.9 fl (80-100); Platelet Count Result 144 k/mm3 (150-375); Red Blood Count 4.42 M/mm3 (4.6-6.20); White Blood Count 7.1 K/mm3 (4.5-10.0)
[2025-08-25 15:52] LABS: Vitamin B12 276.0 pg/mL (239-931)
== END 2025-08-25 09:33 | disposition home or self-care (01) ==
LOC: ANHLAB 09:32
PROVIDERS: PCP Family Medicine; Visit Provider Internal Medicine Hematology & Oncology
DX: D68.69 Other thrombophilia (principal)
CPT/HCPCS: 36415; 82607; 82746; 83090; 85027